=== PATIENT | female | born 1950 | race Caucasian/White ===

== ENCOUNTER 2018-08-03 09:39 | Day surgery (SDC) | payer OTHER ==
[~2018-08-03 09:39] MED LIST: CLINDAMYCIN INJ 900 MG in NA CHLORIDE 0.9% 50 ML IV ONE
--- OUTSIDE RECORDS SUMMARY | 2018-08-03 09:54 | XMS REPORT | Clinical Summary ---
:1950 Author Organization [facility] Address [address] [place] [address] Care Team Providers Name Role Phone Asked, No Pcp Primary Care Provider Unavailable Allergies Not on File Medications No known medications Active Problems No known active problems Encounters Date Type Specialty Care Team Description 06/20/2018 Office Visit Orthopedic Surgery Will Kimball, Chronic low back pain without sciatica, unspecified back pain laterality (Primary Dx); DDD (degenerative disc disease), lumbar; Neck pain after 08/02/2017 Social History Tobacco Use Types Packs/Day Years Used Date Never Assessed Sex Assigned at Date Recorded Not on file Job Start Date Occupation Industry Not on file Not on file Not on file Travel History Travel Start Travel End No recent travel history available. Last Filed Vital Signs Not on file Plan of Treatment Health Maintenance Due Date Last Done Comments BREAST CANCER SCREENING 2002 COLON CANCER SCREENING 2002 SHINGLES VACCINES (1 of 2) 2002 PNEUMOCOCCAL POLYSACCHARIDE VACCINE AGE 65 AND OVER 2017 PNEUMOCOCCAL-13 2017 INFLUENZA VACCINE 03/21/2018 Procedures Procedure Name Priority Date/Time Associated Diagnosis Comments XR CERVICAL SPINE Routine 06/20/2018 12:22 PM Chronic low back Results for this COMPLETE W FLEX EXT CDT pain without procedure are in sciatica, the results unspecified back section. pain laterality DDD (degenerative disc disease), lumbar XR LUMBAR SPINE 2 Routine 06/20/2018 11:37 AM Chronic low back Results for this OR 3 VW CDT pain without procedure are in sciatica, the results unspecified back section. pain laterality DDD (degenerative disc disease), lumbar after 08/02/2017 Results XR Cervical Spine Complete w flex/ext (06/20/2018 12:22 PM CDT) Narrative Performed At [facility] lateral cervical x-ray shows C5-6 severe degenerative changes C4-5 HM [facility] grade 1 spondylolisthesis with no evidence of gross instability.The patient has loss of cervical lordosis overall with no evidence of fractures tumors or other acute abnormalities are seen. Performing Organization Address [facility] Phone Number [facility] [address] [place] [address] XR Lumbar Spine 2 Or 3 Vw (06/20/2018 11:37 AM CDT) Narrative Performed At [facility] lateral lumbar x-ray shows L2-3 degenerative changes and loss of lumbar HM [facility] lordosis at that level with no evidence of spondylolisthesis fractures or other acute abnormality seen on imaging. Performing Organization Address [facility] Phone Number [facility] [address] [place] [address] after 08/02/2017 Insurance Payer Benefit Plan / Group Subscriber ID Type Phone Address [employer] MED[employer]ARE HU[employer] MEDICARE PPO/PFFS/ERS [facility] xxxxxxxxx PPO [phone] [id number] [address] ([place]) [place] [address] Advance Directives Patient has advance care planning documents on file. For more information, please contact:Bc Campuzano[address] [place] [address]
--- OUTSIDE RECORDS SUMMARY | 2018-08-03 09:54 | XMS REPORT | Clinical Summary ---
:1950 Author Organization [facility] Address [address] [place] [address] Care Team Providers Name Role Phone Yoel Martinez Primary Care Provider Allergies Active Allergy Reactions Severity Noted Date Comments Penicillins 12/25/2016 Questionable allergy to penicillin Medications Medication Sig Dispensed Refills Start Date End Date Status methotrexate 2.5 MG Take 7.5 mg 0 12/28/2016 Active tabletIndications: by mouth once Rheumatoid Arthritis a week . methylPREDNISolone Take 2 mg by 0 Active (MEDROL) 2 MG tablet mouth daily. metoprolol (TOPROL-XL) 50 Take 50 mg by 0 Active MG 24 hr tablet mouth 2 (two) times daily. amLODIPine (NORVASC) 10 Take 10 mg by 0 Active MG tablet mouth daily. folic acid (FOLVITE) 1 MG Take 1 mg by 0 Active tablet mouth daily. coenzyme Q10 100 mg Take 100 mg 0 Active capsule by mouth daily. vitamin E 400 UNIT Take 400 0 Active capsule Units by mouth 2 (two) times daily. naproxen Take 220 mg 0 Active (ALEVE,ANAPROX,MIDOL) 220 by mouth MG tablet daily. cholecalciferol (VITAMIN Take 400 0 Active D3) 400 unit Tab tablet Units by mouth daily. b complex vitamins tablet Take 1 tablet 0 Active by mouth daily. aspirin 325 MG tablet Take 325 mg 0 Active by mouth daily. potassium chloride SA Take 10 mEq 0 Active (K-DUR,KLOR-CON) 10 MEQ by mouth 2 tablet (two) times daily. esomeprazole (NEXIUM) 40 Take 40 mg by 0 Active MG capsule mouth daily. cyanocobalamin (VITAMIN Take 500 mcg 0 Active B-12) 500 MCG tablet by mouth nightly. ascorbic acid, vitamin C, Take 1,000 mg 0 Active (VITAMIN C) 1000 MG by mouth tablet nightly. omega-3 fatty acids-fish Take 1 g by 0 Active oil 340-1,000 mg Cap per mouth capsule nightly. magnesium oxide (MAG-OX) Take 400 mg 0 Active 400 mg tablet by mouth nightly. atorvastatin (LIPITOR) 80 Take 1 tablet 30 tablet 0 12/27/2016 12/27/2017 MG tablet (80 mg total) by mouth nightly. Active Problems Problem Noted Date TIA (transient ischemic attack) 12/25/2016 Rheumatoid arthritis(714.0) 12/25/2016 Essential hypertension 12/25/2016 Mixed hyperlipidemia 12/25/2016 History of stroke 12/25/2016 H/O foot surgery 12/25/2016 Social History Tobacco Use Types Packs/Day Years Used Date Never Assessed Sex Assigned at Date Recorded Not on file Job Start Date Occupation Industry Not on file Not on file Not on file Travel History Travel Start Travel End No recent travel history available. Last Filed Vital Signs Not on file Plan of Treatment Not on file Results Not on fileafter 08/02/2017 Insurance Payer Benefit Plan / Group Subscriber ID Type Phone Address [employer] H[employer] POS QPOS xxxxxxxxxx HMO/POS [phone] [address] [address] (Home) [place] [address] Advance Directives For more information, please contact:[address] [phone] Code Status Date Activated Date Inactivated Comments Full Code 12/25/2016 4:48 PM 12/27/2016 8:00 PM This code status was determined by: Patient
--- OUTSIDE RECORDS SUMMARY | 2018-08-03 09:55 | XMS REPORT | Continuity of Care Document ---
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, 5">Confirmed</ [facility], span>) [facility] Rheumatoid Resolved Problem 11/19/[address] [facility], [facility] XRAY Active [facility] 714.0 Active [facility] CVA Active [facility] HAND PAIN Active [facility] Medications Medication Details Route Status Patient Ordering Order Source Instructions Provider Date Vitamin C 1,000 mg, No Longer [facility] Route: PO, Active 014 Medical Drug form: Center TAB, Daily, Dosing Weight 58.001, kg, Start date: 04/03/14 9:00:00, Duration: 30 day, Stop date: 05/02/14 9:00:00 Spironolactone 25 mg, 1 Inactive [facility] tab, Route: 014 Medical PO, Drug Center form: TAB, Daily, Dosing Weight 58.001, kg, Start date: 04/03/14 9:00:00, Duration: 30 day, Stop date: 05/02/14 9:00:00Note s: (Same As: Aldactone) Co-Q10 100 mg, No Longer [facility] Route: PO, Active 014 Medical Drug form: Center CAP, Daily, Dosing Weight 58.001, kg, Start date: 04/03/14 9:00:00, Duration: 30 day, Stop date: 05/02/14 9:00:00 Vitamin B 12 500 No Longer [facility] microgram, Active 014 Medical Route: PO, Center Drug form: TAB, Daily, Dosing Weight 58.001, kg, Start date: 04/03/14 9:00:00, Duration: 30 day, Stop date: 05/02/14 9:00:00 Vitamin D 400 No Longer [facility] IntlUnit, Active [facility] Medical Route: PO, Center Drug form: TAB, Daily, Dosing Weight 58.001, kg, Start date: 04/03/14 9:00:00, Duration: 30 day, Stop date: 05/02/14 9:00:00 Folic Acid 1 mg, 1 Inactive [facility] tab, Route: 014 Medical PO, Drug Center form: TAB, Daily, Dosing Weight 58.001, kg, Start date: 04/03/14 9:00:00, Duration: 30 day, Stop date: 05/02/14 9:00:00Note s: (Same as: Folvite) Magnesium Oxide 400 mg, 1 Inactive [facility] tab, Route: [facility] Medical PO, Drug Center form: TAB, Daily, Dosing Weight 58.001, kg, Start date: 04/03/14 9:00:00, Duration: 30 day, Stop date: 05/02/14 9:00:00Note s: (Same as: Mag-Ox 400) Magnesium oxide [id number] elemental magnesium Dose=____mg magnesium oxide (___mg elemental magnesium) Aspirin 325 MG 325 mg=1 Active [facility] Enteric Coated tab, PO, [facility] Medical Tablet Daily, # Center 100 tab, 0 Refill(s) rosuvastatin 10 10 mg=1 Active [facility] mg oral tablet tab, PO, [facility] Medical Bedtime, # Center 30 tab, 3 Refill(s) Crestor 10 mg, 1 No Longer [facility] tab, Route: Active [facility] Medical PO, Drug Center form: TAB, Bedtime, Dosing Weight 58.001, kg, Start date: 04/02/14 21:00:00, Duration: 30 day, Stop date: 05/01/14 21:00:00Not es: (Same As: Crestor) Artificial Tears 1 drp, No Longer [facility] Route: Each Active [facility] Medical Affected Center Eye, TID, Drug form: SOLN, Start date: 04/02/14 17:00:00, Duration: 30 day, Stop date: 05/02/14 13:00:00 24 HR Metoprolol 50 mg, 1 No Longer [facility] Tartrate 50 MG tab, Route: Active 014 [facility] Extended Release PO, Drug Center Tablet [Toprol] form: ERTAB, BID, Start date: 04/02/14 17:00:00, Duration: 30 day, Stop date: 05/02/14 9:00:00Note s: (Same as: Toprol XL) May split tab, but do not crush. Vitamin E 400 Inactive [facility] IntlUnit, 014 Medical Route: PO, Center Drug form: CAP, BID, Dosing Weight 58.001, kg, Start date: 04/02/14 17:00:00, Duration: 30 day, Stop date: 05/02/14 9:00:00 Norvasc 2.5 mg, 1 No Longer [facility] tab, Route: Active 014 Medical PO, Drug Center form: TAB, Daily, Dosing Weight 58.001, kg, Start date: 04/02/14 15:00:00, Duration: 30 day, Stop date: 05/02/14 9:00:00Note s: (Same as: Norvasc) potassium 20 mEq, 100 Inactive [facility] chloride mL, Route: [facility] Medical IVPB, Drug Center form: INJ, Q2H, Start date: 04/02/14 10:00:00, Duration: 2 doses or times, Stop date: 04/02/14 12:00:00Not es: (Same as: KCL) Infuse no faster than 10 mEq/hr if given peripherall y. Potassium 30 mEq, Inactive [facility] Chloride Route: 014 Medical IVPB, ONCE, Center Dosing Weight 58.001, kg, Start date: 04/02/14 8:11:00, Stop date: 04/02/14 8:11:00 Potassium 10 mEq, Inactive [facility] Chloride Route: 014 Medical IVPB, ONCE, Center Dosing Weight 58.001, kg, Start date: 04/02/14 8:08:00, Stop date: 04/02/14 8:08:00 atorvastatin 40 mg, 1 No Longer [facility] tab, Route: Active 014 Medical PO, Drug Center form: TAB, Bedtime, Dosing Weight 58.001, kg, Start date: 04/01/14 21:00:00, Duration: 30 day, Stop date: 04/30/14 21:00:00Not es: (Same as: Lipitor) Saline Flush 0.9% 5 ml, No Longer [facility] Route: IVP, Active 014 Medical Drug Form: Center INJ, Dosing Weight 58.001, kg, Q12H, Start date: 04/01/14 9:00:00, Duration: 30 day, Stop date: 04/30/14 21:00:00Not es: (Same as: BD Posiflush) Aspirin 325 MG 325 mg, 1 No Longer [facility] Enteric Coated tab, Route: Active 014 Medical Tablet PO, Drug Center form: ECTAB, Daily, Dosing Weight 58.001, kg, Start date: 04/01/14 9:00:00, Duration: 30 day, Stop date: 04/30/14 9:00:00Note s: (Do Not Crush) Do not crush or chew. Docusate 100 mg, 1 No Longer [facility] cap, Route: Active 014 Medical PO, Drug Center form: CAP, Q12H, Dosing Weight 58.001, kg, Start date: 04/01/14 9:00:00, Duration: 30 day, Stop date: 04/30/14 21:00:00Not es: (Same as: Colace) (Do Not Crush) Calcium Chloride 1,000 mg, Inactive [place] 10 mL, 014 Medical Route: Center IVPB, ONCE, Dosing Weight 58.001, kg, Start date: 04/01/14 3:08:00, Stop date: 04/01/14 3:08:00 Potassium 20 mEq, 100 Inactive [facility] Chloride mL, Route: 014 [facility] IVPB, Drug Center form: INJ, ONCE, Dosing Weight 58.001, kg, Start date: 04/01/14 3:07:00, Stop date: 04/01/14 3:07:00Note s: (Same as: KCL) Infuse no faster than 10 mEq/hr if given peripherall y. potassium 10 mEq, 50 Inactive [facility] chloride mL, Route: 014 Medical IVPB, Drug Center form: INJ, ONCE, Dosing Weight 58.001, kg, Start date: 04/01/14 1:30:00, Stop date: 04/01/14 1:30:00Note s: (Same as: KCL) Infuse over 2 hours. Potassium 20 mEq, 100 Inactive [place] Chloride mL, Route: 014 Medical IVPB, Drug Center form: INJ, ONCE, Dosing Weight 58.001, kg, Start date: 04/01/14 0:38:00, Stop date: 04/01/14 0:38:00Note s: (Same as: KCL) Infuse no faster than 10 mEq/hr if given peripherall y. heparin, porcine 5,000 unit, No Longer [place] 1 mL, Active 014 Medical Route: [place] SUB-Q, Drug form: INJ, Q8H, Dosing Weight 58.001, kg, (For patients weighing Notes: porcine heparin Iohexol 85 mL, No Longer [facility] Route: IVP, Active [facility] Drug Form: [place] SOLN, Dosing Weight 58.001, kg, ONCALL, STAT, Start date: 03/31/14 23:53:00, Duration: 1 doses or times, Dose=2.2ml/ kg, Max [id number] -- "To be infused by Radiology Staff ONLY"Specia l Instruction s: Dose=2.2ml/ kg, Max [id number] -- "To be infused by Radiology Staff ONLY" Potassium 10 mEq, 100 No Longer [place] Chloride mL, Route: Active [facility] IVPB, Drug Center form: INJ, ONCE, Dosing Weight 58.001, kg, Start date: 03/31/14 23:07:00, Stop date: 03/31/14 23:07:00Not es: Infuse at a rate of 10 mEq/hr. (Same as: KCL) Saline Flush 0.9% 5 ml, No Longer [facility] Route: IVP, Active 014 Medical Drug Form: [place] INJ, Dosing Weight 58.001, kg, PRN, PRN Line Flush, Start date: 03/31/14 21:07:00, Duration: 30 day, Stop date: 04/30/14 21:06:00Not es: (Same as: BD Posiflush) Acetaminophen 650 mg, 2 No Longer [facility] tab, Route: Active 014 Medical PO, Drug Center form: TAB, Q4H, Dosing Weight 58.001, kg, PRN Pain 1-3/Temp > 99.5 F, Start date: 03/31/14 21:07:00, Duration: 30 day, Stop date: 04/30/14 21:06:00Not es: Do not exceed 4 gm/day. (Same as: Tylenol) Bisacodyl 10 mg, 1 No Longer [facility] supp, Active 014 Medical Route: [place], Center Drug form: SUPP, Daily, Dosing Weight 58.001, kg, PRN Constipatio n, Start date: 03/31/14 21:07:00, Duration: 30 day, Stop date: 04/30/14 21:06:00Not es: (Same As: Dulcolax, Bisco-Lax) Ondansetron 4 mg, 2 mL, No Longer [facility] Route: IVP, Active 014 Medical Drug form: Center INJ, Q8H, Dosing Weight 58.001, kg, PRN Nausea & Vomiting, Start date: 03/31/14 21:07:00, Duration: 30 day, Stop date: 04/30/14 21:06:00Not es: (Same as: Zofran) Labetalol 10 mg, 2 No Longer [facility] mL, Route: Active 014 Medical IVP, Drug Center form: INJ, Q10Min, Dosing Weight 58.001, kg, PRN Hypertensio n, Start date: 03/31/14 21:07:00, Duration: 30 day, Stop date: 04/30/14 21:06:00, For SBP > 180mmHg and/or DBP > 105mmHg Biotin 5000 mcg, Active [facility] PO, Daily, 014 Medical 0 Refill(s) Center Vitamin D 400 Active [facility] IntlUnit, 014 Medical PO, Daily, Center 0 Refill(s) celecoxib 200 MG 200 mg=1 Active [facility] Oral Capsule cap, PO, 014 Medical [Celebrex] Daily, # 30 Center cap, 0 Refill(s) vitamin E 400 400 Active [facility] intl units oral IntlUnit=1 014 Medical capsule cap, PO, Center BID, # 100 cap, 0 Refill(s) Co-Q10 100 mg 100 mg=1 Active [facility] oral capsule cap, PO, 014 Medical Daily, # 30 Center cap, 0 Refill(s) Folic Acid 1 MG 1 mg=1 tab, Active [facility] Oral Tablet PO, Daily, 014 Medical # 30 tab, 0 Center Refill(s) Amlodipine 2.5 MG 2.5 mg=1 Active [facility] Oral Tablet tab, PO, 014 Medical [Norvasc] Daily, # 30 Center tab, 0 Refill(s) metoprolol 50 mg 50 mg, PO, Active [facility] oral tablet, BID, # 30 014 Medical extended release tab, 0 Center Refill(s) Vitamin C 1000 mg 1,000 mg=1 Active [facility] oral tablet tab, PO, 014 Medical Daily, # 30 Center tab, 0 Refill(s) 24 HR tramadol 100 mg=1 Active [facility] hydrochloride 100 tab, PO, 014 Medical MG Extended Daily, # 30 Center Release Tablet tab, 0 Refill(s) Rosuvastatin 5 mg=1 tab, No Longer [facility] calcium 5 MG Oral PO, Active 014 Medical Tablet [Crestor] Bedtime, # Center 30 tab, 0 Refill(s) Estrogens, 0.45 mg=1 Active [facility] Conjugated (JAIL) tab, PO, 014 Medical 0.45 MG Oral Daily, # 30 Center Tablet [Premarin] tab, 0 Refill(s) magnesium oxide 500 mg=1 Active [facility] 500 mg oral tab, PO, 014 Medical tablet Daily, # 10 Center tab, 0 Refill(s) Non-Formulary Refill(s) 0 No Longer [facility] Home Medication Active [address] [place] [address] spironolactone 25 25 mg=1 Active [facility] mg oral tablet tab, PO, 014 Medical Daily, 0 Center Refill(s) Vitamin B-12 500 500 Active [facility] mcg oral tablet microgram=1 014 Medical tab, PO, Center Daily, # 30 tab, 0 Refill(s) Allergies, Adverse Reactions, Alerts Substance Category Reaction Severity Reaction Status Date Comments Source type Reported penicillins< Assertion Drug Active Data sup>1</sup> allergy 3 migrated [place] from [facility] on 03/19/15. Originally documented as PCN. sulfa drugs [facility] Active [facility] allergy [place] penicillins [facility] Active [facility] allergy Immunizations Immunization Date Given Site Status Last Updated Comments Source Results Order Name Results Value Reference Date Interpretation Comments Source Range Hand 2 Hand 2 views BILATERAL HANDS, 2 VIEWS 11/16 - [facility] views Bilateral DX /2016 - [place] Bilateral DX HISTORY: ; M06.041 Rheumatoid arthritis without rheumatoid factor, right hand, M06.042 Rheumatoid arthritis without rheumatoid factor, left hand , M79.641 Pain in right hand, M79.642 Pain in left hand; Read by: Sy Shannon MD Dictated Date/time: 11/16/16 11:20 Electronically Signed by: Sy Shannon MD 11/16/16 11:21 FINAL REPORT COMPARISON: None available. LEFT HAND: No periarticular osteopenia, joint space narrowing, osseous erosions, or soft tissue swelling. No arthritic changes are identified. No subluxation. Osseous and soft tissue structures are normal. RIGHT HAND: No periarticular osteopenia, joint space narrowing, osseous erosions, or soft tissue swelling. No arthritic changes are identified. No subluxation. Osseous and soft tissue structures are normal. SL: [id number] CHEM PANEL eGFR 80 04/03 1Result Comment: The eGFR is calculated using the CKD-EPI formula. In most young, healthy individuals the eGFR will be >90 mL/ min/1.73m2. The eGFR declines with age. An eGFR of 60-89 may be normal in [place] mL/min/1.7 /2014 some populations, particularly the elderly, for whom the CKD-EPI formula has not been extensively validated. Use of the eGFR is not recommended in the following populations: Medical 2 Center Individuals with unstable creatinine concentrations, including patients and those with serious co-morbid conditions. Patients with extremes in muscle mass or diet. The data above are obtained from the National Kidney Disease Education Program (NKDEP) which additionally recommends that when the eGFR is used in patients with extremes of body mass index for purposes of drug dosing, the eGFR should be multiplied by the estimated BMI. CHEM PANEL BUN 14 mg/dL 7 - 22 04/03 [facility] Center CHEM PANEL Creatinine 0.8 mg/dL 0.5 - 1.4 04/03 [facility] Center CHEM PANEL Glucose Lvl 100 mg/dL 70 - 99 04/03 4Interpretive Data: Adult reference range values reflect the clinical guidelines of the [place] [employer]. Medical Center CHEM PANEL CO2 32 meq/L 24 - 32 04/03 [facility] Center CHEM PANEL AGAP 12.4 meq/L 10.0 - 04/03 . [facility] Center CHEM PANEL Calcium Lvl 9.3 mg/dL 8.5 - 10.5 04/03 [facility] CHEM PANEL Sodium Lvl 140 meq/L 135 - 145 04/03 [facility] CHEM PANEL Potassium 3.4 meq/L 3.5 - 5.1 04/03 [facility] Center CHEM PANEL Chloride Lvl 99 meq/L 95 - 109 04/03 [facility] CHEM PANEL Phosphorus 3.4 mg/dL 2.5 - 4.5 04/03 [facility] CHEM PANEL Magnesium 2.1 mg/dL 1.8 - 2.4 04/03 [facility] HEMATOLOGY MPV 12.4 fL 7.4 - 10.4 04/03 [facility] HEMATOLOGY Platelet 193 K/CMM 133 - 450 04/03 [facility] HEMATOLOGY RDW 14.3 % 11.5 - 04/03 14. Medical [place] HEMATOLOGY MCHC 33.6 g/dL 32.0 - 04/03 36.0 [facility] HEMATOLOGY MCH 31.6 pg 27.0 - 04/03 31.0 [facility] Center HEMATOLOGY MCV 93.9 fL 81.0 - 04/03 99.0 [facility] HEMATOLOGY Hct 38.7 % 36.0 - 04/03 48.0 [facility] HEMATOLOGY Hgb 13.0 g/dL 12.0 - 04/03 16.0 [facility] HEMATOLOGY RBC 4.12 M/CMM 4.20 - 04/03 5.40 [facility] HEMATOLOGY WBC 11.9 K/CMM 3.7 - 10.4 04/03 [facility] HEMATOLOGY Smudge Slight None Seen 04/03 [facility] (04/03/14 1:35 AM) [place] HEMATOLOGY Anisocyte 1+ None Seen 04/03 [facility] (04/03/14 1:35 AM) HEMATOLOGY Toxic Gran Slight None Seen 04/03 [facility] [place] (04/03/14 1:35 AM) HEMATOLOGY Large Plt Moderate None Seen 04/03 [facility] [place] (04/03/14 1:35 AM) HEMATOLOGY Giant Plt Slight None Seen 04/03 [facility] (04/03/14 1:35 AM) HEMATOLOGY Lymphocytes 4.6 K/CMM 1.0 - 5.5 04/03 [facility] HEMATOLOGY Monocytes # 1.3 K/CMM 0.0 - 0.8 04/03 [facility] HEMATOLOGY Segs-Bands # 5.1 K/CMM 1.5 - 8.1 04/03 [facility] HEMATOLOGY NRBC 1 /100WB 04/03 [facility] HEMATOLOGY Atypical 0.0 % <=0.0 % 04/03 [facility] Lymph [facility] HEMATOLOGY RBC Morph Normal 04/03 [facility] (04/03/14 1:35 AM) [place] HEMATOLOGY Bands 1.0 % 0.0 - 11.0 04/03 [facility] HEMATOLOGY Eosinophils 0.4 K/CMM 0.0 - 0.5 04/03 [facility] HEMATOLOGY Monocytes 11.0 % 2.0 - 12.0 04/03 [facility] HEMATOLOGY Eosinophils 3.0 % 0.0 - 4.0 04/03 [facility] HEMATOLOGY Myelocytes 2.0 % <=0.0 % 04/03 [facility] HEMATOLOGY Metamyelocyt 2.0 % 0.0 - 1.0 04/03 [facility] HEMATOLOGY Lymphocytes 39.0 % 20.0 - 04/03 [facility] 40.0 [facility] HEMATOLOGY Segs 42.0 % 45.0 - 04/03 [facility] 75.0 [facility] CHEM PANEL Magnesium 1.8 mg/dL 1.8 - 2.4 04/02 [facility] CHEM PANEL Phosphorus 4.1 mg/dL 2.5 - 4.5 04/02 [facility] ELECTROLYT AGAP 12.1 meq/L 10.0 - 04/02 [facility] 20. [facility] ELECTROLYT eGFR 99 04/02 2Result Comment: The eGFR is calculated using the CKD-EPI formula. In most young, healthy individuals the eGFR will be >90 mL/ min/1.73m2. The eGFR declines with age. An eGFR of 60-89 may be normal in [facility] mL/min/1.7 some populations, particularly the elderly, for whom the CKD-EPI formula has not been extensively validated. Use of the eGFR is not recommended in the following populations: [address] Individuals with unstable creatinine concentrations, including patients and those with serious co-morbid conditions. Patients with extremes in muscle mass or diet. The data above are obtained from the National Kidney Disease Education Program (NKDEP) which additionally recommends that when the eGFR is used in patients with extremes of body mass index for purposes of drug dosing, the eGFR should be multiplied by the estimated BMI. ELECTROLYT BUN 18 mg/dL 7 - 22 04/02 [facility] ELECTROLYT Creatinine 0.6 mg/dL 0.5 - 1.4 04/02 [facility] ELECTROLYT Glucose Lvl 98 mg/dL 70 - 99 04/02 5Interpretive Data: Adult reference range values reflect the clinical guidelines of the [place] [employer]. [facility] ELECTROLYT Sodium Lvl 139 meq/L 135 - 145 04/02 [facility] ELECTROLYT Calcium Lvl 8.6 mg/dL 8.5 - 10.5 04/02 [facility] ELECTROLYT CO2 33 meq/L 24 - 32 04/02 [facility] ELECTROLYT Chloride Lvl 97 meq/L 95 - 109 04/02 [facility] ELECTROLYT Potassium 3.1 meq/L 3.5 - 5.1 04/02 [facility] HEMATOLOGY Eosinophils 4.0 % 0.0 - 4.0 04/02 [facility] HEMATOLOGY Lymphocytes 38.0 % 20.0 - 04/02 [place] 40.0 [facility] HEMATOLOGY Monocytes 21.0 % 2.0 - 12.0 04/02 [facility] HEMATOLOGY Bands 2.0 % 0.0 - 11.0 04/02 [facility] HEMATOLOGY Segs 33.0 % 45.0 - 04/02 [facility] 75.0 [facility] HEMATOLOGY Large Plt Moderate None Seen 04/02 Medical *[facility] Center (04/02/14 2:11 AM) HEMATOLOGY Metamyelocyt 2.0 % 0.0 - 1.0 04/02 [facility] es [facility] HEMATOLOGY Atypical 0.0 % <=0.0 % 04/02 [facility] Lymphs [facility] HEMATOLOGY Segs-Bands # 3.7 K/CMM 1.5 - 8.1 04/02 [facility] HEMATOLOGY Lymphocytes 4.0 K/CMM 1.0 - 5.5 04/02 [facility] HEMATOLOGY Eosinophils 0.4 K/CMM 0.0 - 0.5 04/02 [facility] HEMATOLOGY Monocytes # 2.2 K/CMM 0.0 - 0.8 04/02 [facility] HEMATOLOGY MCH 32.2 pg 27.0 - 04/02 31.0 [facility] HEMATOLOGY MCHC 34.3 g/dL 32.0 - 04/02 36.0 [facility] HEMATOLOGY MCV 93.9 fL 81.0 - 04/02 [facility] 99.0 [facility] HEMATOLOGY Hct 38.3 % 36.0 - 04/02 48.0 [facility] HEMATOLOGY RDW 14.2 % 11.5 - 04/02 14.5 [facility] HEMATOLOGY Hgb 13.1 g/dL 12.0 - 04/02 16.0 [facility] HEMATOLOGY RBC 4.08 M/CMM 4.20 - 04/02 5.40 [facility] HEMATOLOGY WBC 10.6 K/CMM 3.7 - 10.4 04/02 [facility] HEMATOLOGY MPV 12.3 fL 7.4 - 10.4 04/02 [facility] HEMATOLOGY Platelet 171 K/CMM 133 - 450 04/02 [facility] HEMATOLOGY Sed Rate 38 mm/h 0 - 20 04/02 [facility] LIPIDS CHD Risk 5.59 3.90 - 04/02 [facility] 5.80 [facility] LIPIDS VLDL 57 04/02 [facility] LIPIDS LDL 76 mg/dL <=99 mg/dL 04/02 [facility] (Calculated) [facility] LIPIDS Chol 162 mg/dL <=199 04/02 [facility] mg/dL [facility] LIPIDS HDL 29 mg/dL >=61 mg/dL 04/02 [facility] LIPIDS Trig 284 mg/dL <=149 04/02 [facility] mg/dL [facility] CARDIAC Troponin-I null 0.00 - 04/01 [facility] ENZYMES 0.40 [facility] CARDIAC Total CK 61 unit/L 12 - 191 04/01 [facility] ENZYMES [facility] CHEM PANEL eGFR 99 04/01 3Result Comment: The eGFR is calculated using the CKD-EPI formula. In most young, healthy individuals the eGFR will be >90 mL/ min/1.73m2. The eGFR declines with age. An eGFR of 60-89 may be normal in [facility] mL/min/1.7 some populations, particularly the elderly, for whom the CKD-EPI formula has not been extensively validated. Use of the eGFR is not recommended in the following populations: [place] [address] Center Individuals with unstable creatinine concentrations, including patients and those with serious co-morbid conditions. Patients with extremes in muscle mass or diet. The data above are obtained from the National Kidney Disease Education Program (NKDEP) which additionally recommends that when the eGFR is used in patients with extremes of body mass index for purposes of drug dosing, the eGFR should be multiplied by the estimated BMI. CHEM PANEL Glucose Lvl 80 mg/dL 70 - 99 04/01 6Interpretive Data: Adult reference range values reflect the clinical guidelines of the [place] [employer]. [facility] CHEM PANEL Sodium Lvl 139 meq/L 135 - 145 04/01 [facility] CHEM PANEL Creatinine 0.6 mg/dL 0.5 - 1.4 04/01 [facility] Lvl [facility] CHEM PANEL AGAP 11.7 meq/L 10.0 - 04/01 [facility] 20.0 [facility] CHEM PANEL Calcium Lvl 9.6 mg/dL 8.5 - 10.5 04/01 [facility] CHEM PANEL Potassium 3.7 meq/L 3.5 - 5.1 04/01 [facility] Lvl [facility] CHEM PANEL CO2 33 meq/L 24 - 32 04/01 [facility] CHEM PANEL Chloride Lvl 98 meq/L 95 - 109 04/01 [facility] CHEM PANEL BUN 17 mg/dL 7 - 22 04/01 [facility] URINE AND UA <=1.0 0.1 - 1.0 04/01 [facility] Urobilinogen mg/dL [facility] URINE AND UA [place] Yeast Few /HPF None Seen 04/01 [facility] /HPF [facility] URINE AND UA RBC 8 /HPF 0 - 2 04/01 [facility] URINE AND UA Mucus Few /LPF None Seen 04/01 [facility] /LPF [facility] URINE AND UA Sq Epi Few /LPF Few /LPF 04/01 [facility] URINE AND UA WBC 8 /HPF 0 - 5 04/01 [facility] URINE AND UA Color Yellow Yellow 04/01 [facility] *NA* [place] (04/01/14 5:40 AM) URINE AND UA Ketones 10 mg/dL Negative 04/01 [facility] mg/dL [facility] URINE AND UA Blood Negative Negative 04/01 [facility] (04/01/14 5:40 AM) [place] URINE AND UA Nitrite Negative Negative 04/01 [facility] (04/01/14 5:40 AM) [place] URINE AND UA Leuk Est Negative Negative 04/01 [facility] (04/01/14 5:40 AM) [place] URINE AND UA Bili Negative Negative 04/01 [facility] Medical *NA* [place] (04/01/14 5:40 AM) URINE AND UA Glucose Negative Negative 04/01 [facility] mg/dL mg/dL [facility] URINE AND UA pH 5.5 5.0 - 8.0 04/01 [facility] URINE AND UA Protein Negative Negative 04/01 [facility] mg/dL mg/dL [facility] URINE AND UA Turbidity Clear Clear 04/01 [facility] (04/01/14 5:40 AM) [place] URINE AND UA Spec Grav 1.047 <=1.030 04/01 [facility] SPECIAL Hgb A1C 5.8 % <=5.6 % 04/01 [facility] CHEMISTRY [facility] HEMATOLOGY Platelet 165 K/CMM 133 - 450 04/01 [facility] HEMATOLOGY MPV 12.8 fL 7.4 - 10.4 04/01 [facility] HEMATOLOGY RDW 15.5 % 11.5 - 04/01 14.5 [facility] HEMATOLOGY MCHC 34.0 g/dL 32.0 - 04/01 [facility] 36.0 [facility] HEMATOLOGY MCH 31.8 pg 27.0 - 04/01 [facility] 31.0 [facility] HEMATOLOGY RBC 4.07 M/CMM 4.20 - 04/01 [facility] 5.40 [facility] HEMATOLOGY Hgb 13.0 g/dL 12.0 - 04/01 [facility] 16.0 [facility] HEMATOLOGY Hct 38.1 % 36.0 - 04/01 [facility] 48.0 [facility] HEMATOLOGY MCV 93.6 fL 81.0 - 04/01 [facility] 99.0 [facility] HEMATOLOGY WBC 7.4 K/CMM 3.7 - 10.4 04/01 [facility] HEMATOLOGY Large Plt Moderate None Seen 04/01 [facility] *ABN* [place] (03/31/14 8:00 PM) HEMATOLOGY Giant Plt Slight None Seen 04/01 [facility] *ABN* [place] (03/31/14 8:00 PM) HEMATOLOGY Smudge Slight None Seen 04/01 [facility] (03/31/14 8:00 PM) [place] HEMATOLOGY Toxic Gran Slight None Seen 04/01 [facility] *ABN* [place] (03/31/14 8:00 PM) HEMATOLOGY Basophils # 0.1 K/CMM 0.0 - 0.2 04/01 [facility] HEMATOLOGY Eosinophils 0.2 K/CMM 0.0 - 0.5 04/01 [facility] HEMATOLOGY Lymphocytes 3.0 K/CMM 1.0 - 5.5 04/01 [facility] HEMATOLOGY Monocytes # 1.1 K/CMM 0.0 - 0.8 04/01 [facility] HEMATOLOGY RBC Morph Normal 04/01 [facility] (03/31/14 8:00 PM) [place] HEMATOLOGY Basophils 0.7 % 0.0 - 1.0 04/01 [facility] HEMATOLOGY Segs-Bands # 3.0 K/CMM 1.5 - 8.1 04/01 [facility] HEMATOLOGY Eosinophils 3.0 % 0.0 - 4.0 04/01 [facility] HEMATOLOGY Segs 40.4 % 45.0 - 08 [place] 75.0 /2013 [facility] HEMATOLOGY Monocytes 15.2 % 2.0 - 12.0 04/01 [facility] HEMATOLOGY Lymphocytes 40.7 % 20.0 - 08 [place] 40.0 [facility] CARDIAC Troponin-I null 0.00 - 08 [facility] ENZYMES 0.40 [facility] CARDIAC Total CK 90 unit/L 12 - 191 04/01 [facility] CARDIAC CK MB Index 2.2 0.0 - 2.5 04/01 [facility] ENZYMES [facility] CARDIAC CK MB 2.0 ng/mL 0.5 - 3.6 04/01 [facility] CHEM PANEL B/C Ratio 24 6 - 25 04/01 [facility] CHEM PANEL Albumin Lvl 2.4 g/dL 3.5 - 5.0 04/01 [facility] CHEM PANEL Total 5.3 g/dL 6.4 - 8.4 04/01 [facility] CHEM PANEL Globulin 2.9 g/dL 2.0 - 4.0 04/01 [facility] CHEM PANEL ALT 57 unit/L 0 - 65 04/01 [facility] CHEM PANEL A/G Ratio 0.8 0.7 - 1.6 04/01 [facility] CHEM PANEL Alk Phos 59 unit/L 39 - 136 04/01 [facility] CHEM PANEL AST 58 unit/L 0 - 37 04/01 [facility] CHEM PANEL Bili Total 0.6 mg/dL 0.2 - 1.3 04/01 [facility] LIPIDS LDL 77 mg/dL <=99 mg/dL 04/01 [facility] (Calculated) [facility] LIPIDS VLDL 53 04/01 [facility] LIPIDS CHD Risk 6.20 3.90 - 04/01 [place] [facility] LIPIDS HDL 25 mg/dL >=61 mg/dL 04/01 [facility] LIPIDS Chol 155 mg/dL <=199 04/01 [facility] mg/dL [facility] LIPIDS Trig 264 mg/dL <=149 04/01 [facility] mg/dL [facility] Brain/Neck Brain/Neck EXAM: CTA NECK 04/01 - [facility] CTA CTA - Medical EXAM: CTA BRAIN Center Read by: Christin Puente MD Dictated Date/time: 04/01/14 08:35 Electronically Signed by: Christin Puente MD 04/01/14 08:46 FINAL REPORT INDICATION: Aphasia COMPARISON: MRI March 31, 2014 TECHNIQUE Rapid acquisition spiral images were obtained following the intravenous administration of 85 cc Omnipaque. 3D MIP reconstructions were performed. DISCUSSION: CTA BRAIN: Moderate stenosis at the left M1 segment. Atherosclerosis of the cavernous segments of the internal carotid arteries without flow limitation. No proximal occlusion. Bilateral posterior communicating arteries are patent. 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 Major dural venous sinuses are patent. Left transverse sinus is hypoplastic. CTA NECK: The common carotid arteries are normal in size. The carotid bifurcations show no stenosis. There is some motion degradation in the neck. Vertebral arteries show no stenosis. Patchy opacities in the left lung base may be infectious or inflammatory in origin. IMPRESSION: 1. Focal moderate stenosis of the left M1 segment. No proximal occlusion is identified intracranially. 2. 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 3. No stenosis at the carotid bifurcations. Vertebral arteries are unremarkable. 4. Patchy opacities in the left lower lung. Further evaluation with dedicated CT chest is recommended. All quantitative and qualitative assessments of carotid bifurcation and proximal internal carotid artery stenosis are made at referencing the distal internal carotid artery. Brain wo Brain wo EXAM: MRI BRAIN WITHOUT CONTRAST 03/31 [facility] contrast contrast MRI /2013 - [facility] DATE: 03/31/2014 Read by: Caden Rey MD Dictated Date/time: 04/01/14 08:33 Electronically Signed by: Caden Rey MD 04/01/14 08:39 FINAL REPORT CLINICAL INDICATION: Aphasia TECHNIQUE: Multisequence multiplanar noncontrast MRI of the brain is performed. DISCUSSION: There is diffusion restriction in the left ventromedial thalamus extending inferiorly into the left subthalamic region and into the mesial aspect of the rostral mesencephalon. There is no acute intracra nial hemorrhage. FLAIR imaging shows scattered T2 hyperintensities in the white matter, reflecting chronic microangiopathic changes. The ventricles and basal cisterns are normal. The flow-voids of the l arger arteries at the cranial base are preserved. IMPRESSION: Acute infarct in the left ventromedial thalamus extending into the ipsilateral subthalamic region and rostral mesencephalon. No hemorrhage Spine Spine Cervical spine series 3 views: 01/27 - cervical 2 cervical - or 3 views or 3 views COMPARISON: No priors Read by: Larry Bertrand MD Dictated Date/time: 01/27/14 16:21 Electronically Signed by: Larry Bertrand MD 01/27/14 16:23 FINAL REPORT FINDINGS: There is no evidence for fracture or subluxation. The vertebral body heights are reasonably well-maintained. There is moderate anterior and posterior spondylosis and disc disease at C5 -C6 level. Moderate decrease in disc space height is present. Alignment remains anatomic. Prevertebral soft tissues are within normal limits. IMPRESSION: Spondylosis and degenerative disc disease is present primarily at C5-C6 level. SL:13 Chest 2 Chest 2 CHEST, PA AND LATERAL. 12/25 - views - INDICATION: Chest pain. Read by: Mukund Torres MD Dictated Date/time: 12/25/13 17:31 Electronically Signed by: Mukund Torres 12/25/13 17:32 FINAL REPORT Cardiac size is normal. The thoracic aorta is ectatic and atherosclerotic. There is minor linear scarring at both lung bases. The lungs are otherwise clear, and no vascular congestion or pleural effusion is seen. Minor thoracic spondylosis is noted. IMPRESSION: No significant abnormality. SL: 12 Vital Signs Vital Sign Value Date Comments Source Systolic (mm Hg) 115 04/03/2014 [facility] Diastolic (mm Hg) 65 04/03/2014 [facility] Respitory Rate 13 04/03/2014 [facility] Respitory Rate 24 04/03/2014 [facility] Respitory Rate 17 04/03/2014 [facility] Diastolic (mm Hg) 80 04/03/2014 [facility] Systolic (mm Hg) 119 04/03/2014 [facility] Diastolic (mm Hg) 87 04/03/2014 [facility] Systolic (mm Hg) 117 04/03/2014 [facility] Temperature Oral (F) 96.9 F 04/03/2014 [facility] Height 157.48 cm 03/31/2014 [facility] Weight 58.001 03/31/2014 [facility] BMI Calculated 23.39 03/31/2014 [facility] Encounters Location Location Encounter Encounter Reason Attending ADM DC Status Source Details Type Number For Provider Date Date Visit [facility] [id number] Jyothi 12/25 12/26 Brendan Chopra /2013 [facility] Outpatient [id number] Joythi 01/27 01/28 Brendan Chopra /2013 [facility] Inpatient [id number] Anjail 03/31 04/03 Sachin Joy /2013 [facility] [id number] Non 05/01 05/31 [facility] /2013 [facility] Outpatient [id number] Jyothi 11/16 11/17 Brendan Chopra /2016 [facility] Procedures Procedure Code Date Perfomer Comments Source Foot joint [id number] [facility] Hysterectomy [id number] [facility] Foot joint [id number] [facility] Hysterectomy [id number] [facility]
--- OUTSIDE RECORDS SUMMARY | 2018-08-03 09:56 | XMS REPORT ---
:1950 Author Organization [facility] Address [address] [place] [address] Dr. Smith [address] [place] [id number] Care Team Providers Name Role Phone ANGÉLICA HARRELL Unavailable Unavailable Problems This patient has no known problems. Allergies, Adverse Reactions, Alerts This patient has no known allergies or adverse reactions. Medications This patient has no known medications. Results Test Description Test Time Test Comments Text Results Atomic Results Result Comments BASIC METABOLIC PANEL 2016-12-27 05:14:00 Test Item Value Reference Range Comments SODIUM (BEAKER) (test 141 meq/L 136-145 megt=606) POTASSIUM (BEAKER) (test 4.2 meq/L 3.5-5.1 fptk=609) CHLORIDE (BEAKER) (test 109 meq/L 98-107 chsm=924) CO2 (BEAKER) (test bwda=942) 26 meq/L 22-29 BLOOD UREA NITROGEN (BEAKER) 14 mg/dL 7-21 (test hlwj=415) CREATININE (BEAKER) (test 0.80 mg/dL 0.57-1.25 uxcs=078) GLUCOSE RANDOM (BEAKER) 108 mg/dL 70-105 (test rosd=650) CALCIUM (BEAKER) (test 9.0 mg/dL 8.4-10.2 czxw=193) EGFR (BEAKER) (test 72 mL/min/1.73 sq m ESTIMATED GFR IS NOT zwpw=3439) ACCURATE CREATININE CLEARANCE IN PREDICTING GLOMERULAR FILTRATION RATE. ESTIMATED GFR IS NOT APPLICABLE FOR DIALYSIS PATIENTS. [id number] 12:05:00 Test Item Value Reference Range Comments RPR SCREEN (BEAKER) (test smrp=528) Nonreactive Nonreactive HEMOGLOBIN [id number] 11:10:00 Test Item Value Reference Range Comments HEMOGLOBIN A1C (BEAKER) (test hjvf=347) 5.1 % 4.3-6.1 CREATINE KINASE (CK), TOTAL AND [id number] 10:42:00 Test Item Value Reference Range Comments CREATINE KINASE TOTAL (BEAKER) (test hrwr=383) 38 U/L 29-200 CREATINE KINASE-MB (BEAKER) (test tfdb=424) 0.8 ng/mL 0.0-6.6 CREATINE KINASE-MB INDEX (BEAKER) (test qpxa=230) 2.1 % Effective 2014: CK-MB Reference Range ChangeNew: 0.0-6.6 Previous: 0.0- 4.9CK-MB Reference Range:<6.7 Normal6.7-10.0 Borderline>10.0 AbnormalTROPONIN [id number] 10:42:00 Test Item Value Reference Range Comments TROPONIN I (BEAKER) (test bdei=981) 0.01 ng/mL 0.00-0.03 Effective 2014: Reference Range ChangeNew: 0.00-0.03 Previous 0.00- 0.15Troponin I (TnI) levels must be interpreted in the context of the presenting symptoms and the clinical findings. Elevated TnI levels indicate myocardial damage, but are not specific for ischemic heart disease. Elevated TnI levels are seen in patients with other cardiac conditions (including myocarditis and congestive heartfailure), and slight TnI elevations occur in patients with other conditions, including sepsis, renalfailure, acidosis, acute neurological disease, and persistent tachyarrhythmia.VITAMIN B12 AND [id number] 07:06:00 Test Item Value Reference Range Comments VITAMIN B12 (BEAKER) (test jqon=943) > pg/mL 213-816 FOLATE (BEAKER) (test zhvn=914) 15.6 ng/mL >=7.0 Effective 2014: Folate Reference Range ChangeNew: >=7.0 Previous: & gt;=5.4FastingTSH/FREE T4 IF [id number] 07:03:00 Test Item Value Reference Range Comments THYROID STIMULATING HORMONE (BEAKER) (test 2.28 uIU/mL 0.35-4.94 cdla=378) [id number] 05:47:00 Test Item Value Reference Range Comments HOMOCYSTEINE (BEAKER) (test ujac=696) 5.4 umol/L 5.1-15.4 FastingBASIC METABOLIC [id number] 05:43:00 Test Item Value Reference Range Comments SODIUM (BEAKER) (test 142 meq/L 136-145 hmnv=371) POTASSIUM (BEAKER) (test 4.0 meq/L 3.5-5.1 hbku=275) CHLORIDE (BEAKER) (test 111 meq/L 98-107 aqsy=770) CO2 (BEAKER) (test 22 meq/L 22-29 zkhd=186) BLOOD UREA NITROGEN 13 mg/dL 7-21 (BEAKER) (test bdad=219) CREATININE (BEAKER) (test 0.75 mg/dL 0.57-1.25 tqmm=967) GLUCOSE RANDOM (BEAKER) 83 mg/dL 70-105 (test awal=923) CALCIUM (BEAKER) (test 8.7 mg/dL 8.4-10.2 aecg=059) EGFR (BEAKER) (test 78 mL/min/1.73 sq m ESTIMATED GFR IS NOT gghw=5193) ACCURATE CREATININE CLEARANCE IN PREDICTING GLOMERULAR FILTRATION RATE. ESTIMATED GFR IS NOT APPLICABLE FOR DIALYSIS PATIENTS. FastingLIPID [id number] 05:43:00 Test Item Value Reference Range Comments TRIGLYCERIDES (BEAKER) (test jpru=242) 509 mg/dL CHOLESTEROL (BEAKER) (test agqh=908) 333 mg/dL HDL CHOLESTEROL (BEAKER) (test pmvn=709) 41 mg/dL Calculated LDL not valid if triglyceride >400 mg/dLTriglyceride Reference Range: Low Risk <150 Borderline 150-199 High Risk 200-499 Very High Risk >=500Cholesterol Reference Range: Low Risk <200 Borderline 200-239 High Risk >240HDL Cholesterol Reference Range: Low Risk >=60 High Risk <40LDL Cholesterol ReferenceRange: Optimal <100 Near Optimal 100-129 Borderline 130-159 High 160-189 Very High >=190 FastingCREATINE KINASE (CK), TOTAL AND [id number] 00:59:00 Test Item Value Reference Range Comments CREATINE KINASE TOTAL (BEAKER) (test ivus=119) 48 U/L 29-200 CREATINE KINASE-MB (BEAKER) (test mhmd=463) 0.9 ng/mL 0.0-6.6 CREATINE KINASE-MB INDEX (BEAKER) (test gmvh=587) 1.9 % Effective 2014: CK-MB Reference Range ChangeNew: 0.0-6.6 Previous: 0.0- 4.9CK-MB Reference Range:<6.7 Normal6.7-10.0 Borderline>10.0 AbnormalTROPONIN [id number] 00:59:00 Test Item Value Reference Range Comments TROPONIN I (BEAKER) (test qswx=908) < ng/mL 0.00-0.03 Effective 2014: Reference Range ChangeNew: 0.00-0.03 Previous 0.00- 0.15Troponin I (TnI) levels must be interpreted in the context of the presenting symptoms and the clinical findings. Elevated TnI levels indicate myocardial damage, but are not specific for ischemic heart disease. Elevated TnI levels are seen in patients with other cardiac conditions (including myocarditis and congestive heartfailure), and slight TnI elevations occur in patients with other conditions, including sepsis, renalfailure, acidosis, acute neurological disease, and persistent tachyarrhythmia.CREATINE KINASE (CK), TOTAL AND [id number] 20:28:00 Test Item Value Reference Range Comments CREATINE KINASE TOTAL (BEAKER) (test pijb=159) 52 U/L 29-200 CREATINE KINASE-MB (BEAKER) (test leyn=853) 1.2 ng/mL 0.0-6.6 CREATINE KINASE-MB INDEX (BEAKER) (test sxrc=855) 2.3 % Effective 2014: CK-MB Reference Range ChangeNew: 0.0-6.6 Previous: 0.0- 4.9CK-MB Reference Range:<6.7 Normal6.7-10.0 Borderline>10.0 AbnormalTROPONIN [id number] 20:28:00 Test Item Value Reference Range Comments TROPONIN I (BEAKER) (test dtfp=221) < ng/mL 0.00-0.03 Effective 2014: Reference Range ChangeNew: 0.00-0.03 Previous 0.00- 0.15Troponin I (TnI) levels must be interpreted in the context of the presenting symptoms and the clinical findings. Elevated TnI levels indicate myocardial damage, but are not specific for ischemic heart disease. Elevated TnI levels are seen in patients with other cardiac conditions (including myocarditis and congestive heartfailure), and slight TnI elevations occur in patients with other conditions, including sepsis, renalfailure, acidosis, acute neurological disease, and persistent tachyarrhythmia.BASIC METABOLIC [id number] 20:22:00 Test Item Value Reference Range Comments SODIUM (BEAKER) (test 143 meq/L 136-145 yltj=933) POTASSIUM (BEAKER) (test 3.1 meq/L 3.5-5.1 gjtp=001) CHLORIDE (BEAKER) (test 108 meq/L 98-107 ulkc=784) CO2 (BEAKER) (test 25 meq/L 22-29 dnbq=245) BLOOD UREA NITROGEN 15 mg/dL 7-21 (BEAKER) (test bjlt=817) CREATININE (BEAKER) (test 0.76 mg/dL 0.57-1.25 vwpg=185) GLUCOSE RANDOM (BEAKER) 161 mg/dL 70-105 (test lpii=832) CALCIUM (BEAKER) (test 8.7 mg/dL 8.4-10.2 oiqv=770) EGFR (BEAKER) (test 77 mL/min/1.73 sq m ESTIMATED GFR IS NOT zhav=1177) ACCURATE CREATININE CLEARANCE IN PREDICTING GLOMERULAR FILTRATION RATE. ESTIMATED GFR IS NOT APPLICABLE FOR DIALYSIS PATIENTS. CBC W/PLT COUNT & AUTO [id number] 20:02:00 Test Item Value Reference Range Comments WHITE BLOOD CELL COUNT (BEAKER) (test eylw=412) 7.6 K/ L 4.0-10.0 RED BLOOD CELL COUNT (BEAKER) (test ihcp=094) 4.73 M/ L 4.00-5.00 HEMOGLOBIN (BEAKER) (test vvyt=151) 15.1 GM/DL 12.0-15.0 HEMATOCRIT (BEAKER) (test mgln=174) 44.6 % 36.0-45.0 MEAN CORPUSCULAR VOLUME (BEAKER) (test nter=815) 94.2 fL 82.0-99.0 MEAN CORPUSCULAR HEMOGLOBIN (BEAKER) (test 31.9 pg 27.0-33.0 jxsb=422) MEAN CORPUSCULAR HEMOGLOBIN CONC (BEAKER) (test 33.9 GM/DL 32.0-36.0 xegx=798) RED CELL DISTRIBUTION WIDTH (BEAKER) (test 13.8 % 10.3-14.2 vifs=998) PLATELET COUNT (BEAKER) (test nvbn=449) 117 K/CU MM 150-430 MEAN PLATELET VOLUME (BEAKER) (test ovkd=007) 11.6 fL 6.5-10.5 NUCLEATED RED BLOOD CELLS (BEAKER) (test 0 /100 WBC 0-0 ptra=972) NEUTROPHILS RELATIVE PERCENT (BEAKER) (test 69 % ajcb=685) LYMPHOCYTES RELATIVE PERCENT (BEAKER) (test 20 % mojt=578) MONOCYTES RELATIVE PERCENT (BEAKER) (test 8 % usdg=916) EOSINOPHILS RELATIVE PERCENT (BEAKER) (test 2 % rcgc=530) BASOPHILS RELATIVE PERCENT (BEAKER) (test 0 % kbvf=141) NEUTROPHILS ABSOLUTE COUNT (BEAKER) (test 5.26 K/ L 1.80-8.00 uqjc=790) LYMPHOCYTES ABSOLUTE COUNT (BEAKER) (test 1.52 K/ L 1.48-4.50 eniu=160) MONOCYTES ABSOLUTE COUNT (BEAKER) (test 0.62 K/ L 0.00-1.30 indz=760) EOSINOPHILS ABSOLUTE COUNT (BEAKER) (test 0.17 K/ L 0.00-0.50 fcdx=380) BASOPHILS ABSOLUTE COUNT (BEAKER) (test 0.03 K/ L 0.00-0.20 tpej=333) 0.00
[2018-08-03] MEDS ORDERED: Ringers Lactate 1,000 ML IV ONE (10:23)
[2018-08-03] MEDS ORDERED: MIDAZOLAM HCL 2 MG/2 ML INJ ONE (11:28)
[2018-08-03] MEDS ORDERED: ONDANSETRON 4 MG/2 ML VIAL ONE (11:29)
[2018-08-03] MEDS ORDERED: LIDOCAINE 2% MPF 5 ML VIAL ONE (11:29)
[2018-08-03] MEDS ORDERED: FENTANYL CITR 250 MCG/5 ML ONE (11:29)
[2018-08-03] MEDS ORDERED: PROPOFOL 200 MG/20 ML VIAL IV ONE (11:30)
[2018-08-03] MEDS ORDERED: METHYLPREDNISOLONE 125 MG INJ ONE (11:50)
--- NOTE | 2018-08-03 13:07 | P.BOP ---
Preoperative diagnosis: right medial malleolus fx Postoperative diagnosis: same Primary procedure: right medial malleolus orif Estimated blood loss: 5ccs Anesthesia: General Complications: None Transferred to: Recovery Room Condition: Good
[2018-08-03] MEDS ORDERED: CODEINE 30MG/APAP 300MG TAB ONE (14:01)
--- NOTE | 2018-08-03 14:13 | RAD REPORT ---
EXAM DESCRIPTION: RAD - Ankle Right 2 View - 08/03/2018 2:02 pm FINDINGS: ORIF right ankle performed. Two portable C-arm views were obtained during fluoroscopic assisted placement of fracture fixation villar rdware. No suspicious or unexpected finding. Fluoro time was 0.6 minutes.
--- NOTE | 2018-08-04 00:33 | OP ---
Date of Procedure: 08/03/2018 Surgeon: Emiliano Mccarthy MD Preoperative Diagnosis: Right medial malleolus fracture. Postoperative Diagnosis: Right medial malleolus fracture. Procedure: Right medial malleolus screw fixation. Estimated Blood Loss: Less than 5 cc. Complications: There were no complications. Specimen: No pathology specimens sent. Indication For Operation: Ms. Long is a 68-year-old female, who unfortunately suffers from rheum atoid disease, who began having pain in her right ankle. When she saw me in my office, she denied an y history of trauma, however, had persistent pain in her ankle. X-rays were taken, which demonstrate d a small amount of haze in the region of the medial malleolus and the area which is very typical for medial malleolus fracture. An MRI was performed, which demonstrates a medial malleolus fracture wit h some healing, but the fracture line is still visible. All risks, benefits, and alternatives have b een discussed with the patient with regard to skeletal stabilization and nonweightbearing and attempt to get this to heal. It has been 6 weeks since the onset. However, I feel that this is the best wa y of managing this at this point. She says she understands things as presented and wishes to proceed . Description Of Procedure: The patient was taken to the operating room and placed in supine position. General anesthesia was obtained by the staff. Following this, a well-padded tourniquet was placed on the superior right thigh. Right lower extremity was then prepped and draped in usual sterile fash ion for the procedure. Following this, a guidewire was then placed using biplanar C-arm radiography, which appeared to cross the fracture site without difficulty. This was followed by second guide pin . After this, the 4-0 cannulated screws were then placed, 1 at a time providing compression. After this, the wound was irrigated and the skin was closed using interrupted nylon sutures. She was then placed in a very well-padded posterior splint with side flat, awakened, and taken to recovery room in good condition. There were no complications. /GAEL Voice ID: [id number] Report ID: [id number]
== END 2018-08-03 14:49 | disposition home or self-care (01) ==
LOC: OR 09:39
PROVIDERS: ATTEND Orthopaedic Surgery
PROC: 0QSG04Z Reposition Right Tibia with Internal Fixation Device, Open Approach (ICD-10-PCS; principal; 2018-08-03 11:00)
DX: S82.54XA Nondisplaced fracture of medial malleolus of right tibia, initial encounter for closed fracture (principal); M06.9 Rheumatoid arthritis, unspecified; I10 Essential (primary) hypertension; I69.951 Hemiplegia and hemiparesis following unspecified cerebrovascular disease affecting right dominant side; Z88.0 Allergy status to penicillin
CPT/HCPCS: 27766; 73600; J2250; J2405; J2704; J2930; J3010

== ENCOUNTER → 2021-03-02 | Day surgery (SDC) | payer OTHER ==
[2021-03-01 14:32] LABS: Absolute Lymphocytes (CBC) 3.6 K/uL (0.7-4.9); Hematocrit 42.6 % (36.0-45.0); Lymphocytes % 38.4 % (15.3-44.8); MPV 12.3 fL (7.6-11.3); RBC Red Blood Cell Count 4.82 M/uL (3.86-4.86)
[2021-03-01 14:34] LABS: Protime INR 1.05
[2021-03-01 14:48] LABS: Potassium 3.1 mmol/L (3.5-5.1)
--- NOTE | 2021-03-01 15:39 | RAD REPORT ---
EXAM DESCRIPTION: RAD - Chest Single View - 03/01/2021 3:01 pm CLINICAL HISTORY: PRE-OP, pending kidney stone removal COMPARISON: January 2020 TECHNIQUE: AP portable chest image was obtained 03/01/2021 3:01 pm . FINDINGS: Scarring or linear atelectasis seen in each lung base. Lung volumes are low. Heart and vas culature are normal. No measurable pleural effusion and no pneumothorax. No acute bony abnormality se en. No acute aortic findings suspected. IMPRESSION: No acute cardiopulmonary process. No significant change from comparison study.
--- NOTE | 2021-03-01 16:03 | EKG ---
Test Date: 2021-03-01 Test Time: 13:30:16 Waste Removalist: MAE MEASUREMENT RESULTS: Intervals: Rate: 64 NH: 158 QRSD: 82 QT: 388 QTc: 400 [place]: P: 29 NH: 158 QRS: 18 T: 60 INTERPRETIVE STATEMENTS: Normal sinus rhythm Nonspecific ST and T wave abnormality Abnormal ECG Compared to ECG 12/25/2016 13:06:14 ST (T wave) deviation now present Sinus bradycardia no longer present Electronically Signed On 03-01-21 16:02:30 CDT by Aldo Thornton
[~2021-03-02] MED LIST changes: +CLINDAMYCIN INJ 600 MG in NA CHLORIDE 0.9% 50 ML IV ONE; -CLINDAMYCIN INJ 900 MG in NA CHLORIDE 0.9% 50 ML IV ONE; +CODEINE 30MG/APAP 300MG TAB PO ONE; +CODEINE 30MG/APAP 300MG TAB PO PRN; +EPHEDRINE SULF 50 MG/ML VIAL ONE; +FENTANYL CITR 100 MCG/2 ML ONE; +GENTAMICIN 80 MG/100 ML BAG 80 MG/100 ML BAG IV ONE; +GLYCOPYRROLATE 0.2 MG/ML SYR ONE; +KETOROLAC 30 MG/ML INJ ONE; +LIDOCAINE 2% MPF 5 ML VIAL ONE; +MIDAZOLAM HCL 2 MG/2 ML INJ ONE; +ONDANSETRON 4 MG/2 ML VIAL ONE; +PHENAZOPYRIDINE 100MG TAB PO ONE; +POTASSIUM CL SA 10 MEQ TAB PO ONE; +Ringers Lactate 1,000 ML IV ONE; +dexAMETHasone 10 MG/ML VIAL ONE; +propofoL 200 MG/20 ML VIAL IV ONE
--- NOTE | 2021-03-02 14:31 | RAD REPORT ---
EXAM DESCRIPTION: RAD - Urethrocystogrphy Retrograde - 03/02/2021 2:22 pm CLINICAL HISTORY: CYSTO STENT COMPARISON: Abdomen Pelvis W/Wo Contrast dated 01/19/2021 FINDINGS: Nine intraoperative fluoroscopic images were obtained. Total fluoro time of 20 sections wi th dose of 6.6 mSv. The left ureteral orifice was cannulated. Injection of contrast again demonstrated the stone in the l eft mid ureter. A guidewire was placed. A left double-J ureteral stent was placed. Question some resi dual stone debris in the left proximal ureter. IMPRESSION: Successful placement of a left ureteral stent.
[2021-03-02 16:03] VITALS: BP 125/66; TEMP 97.4; O2SAT 97
--- NOTE | 2021-03-02 20:58 | OP ---
Surgeon: AMY WEST Preoperative Diagnoses: 1.Left ureterolithiasis. 2.Bilateral nephrolithiasis. 3.Acute kidney injury. Postoperative Diagnoses: 1.Left ureterolithiasis. 2.Bilateral nephrolithiasis. 3.Acute kidney injury. 4.Aberrant bladder compliance. 5.Hemorrhagic cystitis. 6.Gross hematuria. 7.Right vesicoureteral reflux. Procedures: 1.Cystoscopy. 2.Bladder irrigation. 3.Left retrograde pyelography. 4.Left ureteral stent placement. Indication For Procedure: Ms. oLng is a 70-year-old woman on methotrexate for rheumatoid arthrit is with a history of CVAs x2, last in 2016, a history of kidney stones, who had undergone a laparosco pic hysterectomy in the early s and presents with recurrent irritative urinary symptoms and urinary tract infections associated with incontinence. Imaging revealed the presence of obstructing left 9 mm ureteral calculus along with an 8 mm lower pole right renal calculus nonobstructing. Urine cultur e was sent 2 days after completion of a prior antimicrobial treatment course for fluoroquinolone resi stant Pseudomonas and was unremarkable for infection. Her basic metabolic panel obtained preoperativ leland revealed some evidence of renal function design, which was presumed to be acute, but could be chr onic. As a result, she was planned for urgent left ureteral stent placement. Procedure In Detail: The patient was consented in the preoperative holding area before being transfe rred to the operative suite where general anesthesia was induced. She was given clindamycin 600 mg a nd gentamicin 80 mg IV antimicrobial prophylaxis. Pneumo boots were provided for DVT prophylaxis. S he was placed in the lithotomy position, padded and secured to the table appropriately. Her genitali a were prepped using Hibiclens and draped in standard fashion. The case was begun using a 22-Luxembourger rigid cystoscope to traverse the urethra and into the bladder with ease. The bladder was decompresse d of cloudy and yellowish orange appearing urine before attempts at cystoscopy were made. Unfortunat leland, the urine was so cloudy and grossly hemorrhagic that it was impossible to visualize adequately. As a result, I irrigated the bladder multiple times to clear it of the prevailing blood until I was able to visualize the mucosa. Throughout the mucosa, there was evidence of mucosal disruption withou t any directly visualizable papillary lesion seen. The bladder was noted to be severely poorly compl iant only excepting may be 100 or 200 mL of fluid before becoming so tensely distended that additiona l fluid irrigation would not be admitted. However, once the urine was clear enough to visualize the left ureteral orifice, I cannulated it with a 5-Luxembourger ureteral access catheter and performed a retro grade pyelogram. Left retrograde pyelography: Using a 70:30 mixture of Omnipaque and saline, contrast was injected via the lumen of the 5-Luxembourger ur eteral access catheter and did propagate up what appeared to be obstructing distal ureter before keyanna gating around the likely point of obstruction, the stone, and propagating into the renal pelvis. Eff orts to delineate the renal pelvis completely and reveal a filling defect were not performed due to t he potential concern for occult infection/infection that did not show up on our urine culture because she had recently come off antimicrobial therapy. The stone itself was not visualized in the distal ureter and therefore was likely of uric acid in composition as it was not radiopaque. I thus passed a Sensor wire via the 5-Luxembourger ureteral access catheter and was able to navigated into the putative u pper pole of the kidney. The wire did coil there fluoroscopically, and I removed the 5-Luxembourger ureter al access catheter and passed a 6-Luxembourger x 24 cm double-J stent with a coil observed fluoroscopically within the left renal pelvis and one cystoscopically formed in the bladder. I then irrigated her bl adder again a few more times before decompressing it completely and removing the scope. She was then taken out of the lithotomy position, awakened from general anesthesia, transferred to a [facility] then transferred to the recovery room in good condition. Complications: None. Discharge Disposition: She should be rescheduled for definitive left ureteroscopy with laser lithotr ipsy within the coming weeks. Repeat preoperative urine culture will be mandatory once patient has b een off antimicrobials for at least 1 week. She likely would benefit from management of her right-si ded nephrolithiasis as well; however, if the stone is invisible to plain film, she may require ureter oscopic intervention for that, which she may elect to await recurrent obstruction before attempting a n invasive procedure for a nonobstructing stone. Otherwise, if no sign of actual infection within he r urine, if the disrupted mucosa persists on followup, we will also plan a cystoscopic bladder biopsi es to rule out malignancy. Ultimately, management of her severely poorly compliant bladder will be r equired with aggressive antimicrobial therapy if no infection is beneath the dysfunction. KRISTEN/GAEL Voice ID: [id number] Report ID: [id number]
== END | disposition home or self-care (01) ==
LOC: OR 11:20
PROVIDERS: ATTEND Urology
PROC: 0T778DZ Dilation of Left Ureter with Intraluminal Device, Via Natural or Artificial Opening Endoscopic (ICD-10-PCS; principal; 2021-03-02 14:30)
DX: N20.2 Calculus of kidney with calculus of ureter (principal); N17.9 Acute kidney failure, unspecified; N30.91 Cystitis, unspecified with hematuria; N13.70 Vesicoureteral-reflux, unspecified; Q64.10 Exstrophy of urinary bladder, unspecified
CPT/HCPCS: 52332; 93005; 85025; 80048; 36415; 85610; 85730; 71045; 74450; 51610; J2704; J2250; J3010; J1100; J7120; J1580; J2405

== ENCOUNTER 2021-03-06 12:39 | Inpatient (IN) | payer OTHER ==
[2021-03-06] MEDS: VANCOMYCIN 1 GM in NA CHLORIDE 0.9% 250 ML IVPB SCH (11:00)
--- OUTSIDE RECORDS SUMMARY | 2021-03-06 13:04 | XMS REPORT | Continuity of Care Document ---
:1950 Author Organization [facility] t Address [address] [place] [address] Smith [address] [place] [id number] Care Team Providers Name Role Phone SAL FENG Primary Care Physician Unavailable SYSTEM, NOT IN Attending Clinician Unavailable Sal Fneg MD Attending Clinician SAL FENG Attending Clinician Unavailable Keshia HORTON Attending Clinician Ashly Hayes Attending Clinician Andrew LEONARDO, A Attending Clinician Unavailable Dinh CHAVARRIA, M Attending Clinician Lalo KAY Attending Clinician Unavailable Ashly RASCON Attending Clinician Unavailable Dangelo LEONARDO, R Attending Clinician Anjana HORTON Attending Clinician Fco Fine MD Attending Clinician Mary Attending Clinician Radiology Attending Clinician Unavailable MARIS Attending Clinician Unavailable MD MARIS PJosé Miguel Attending Clinician Unavailable Artemio Chopra Attending Clinician Aubrey HARRELL Attending Clinician Unavailable Physician, Associated Attending Clinician Unavailable Og Joy Attending Clinician SAL FENG Admitting Clinician Unavailable MARIS Admitting Clinician Unavailable MD MARIS PJosé Miguel Admitting Clinician Unavailable Aubrey HARRELL Admitting Clinician Unavailable Og Joy Admitting Clinician Payers Payer Name Policy Type Policy Effective Date Expiration Date Sour ce Number [facility] [id number] 2020 Cade rson MEDICARE 00:00:00 [facility] MEDICARE [id number] 2020-PresentMe dicare Problems Condition Condition Condition Status Onset Resolution Last Treating Co mments Source Name Details Category Date Date Treatment Clinician Date Malignant Malignant Disease Active Overview: melanoma melanoma 11-19 Formattin And erso of back of back 00:00: g of this n 00 note might be different from the original. 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 Left upper back Venous Venous Disease Active stasis stasis 11-19 Anderso edema of edema of 00:00: n bilateral bilateral 00 lower lower limbs limbs Chronic Chronic Disease Active ethmoidal ethmoidal 8-14 Cade rso sinusitis sinusitis 00:00: n 00 Chronic Chronic Disease Active sphenoidal sphenoidal 8-14 An derso sinusitis sinusitis 00:00: n 00 M79.641 Diagnosis Active 2019-10-01 Me moria M79.642 10-01 13:35:00 l M79.641 00:00: Brendan M79.642 00 Active 10/01/2019 [facility] Rheumatoid Rheumatoid Disease Active [facility] arthritis( arthritis( 12-25 Ximena kes - 714.0) 714.0) 00:00: Medical 00 Center Essential Essential Disease Active [facility] hypertensi hypertensi 12-25 Ximena kes - on on 00:00: Medical 00 Center Mixed Mixed Disease Active [facility] hyperlipid hyperlipid 12-25 Ximena liban [place] 00:00: Medical Center History of History of Disease Active M D cerebrovas cerebrovas 12-25 An derso cular cular 00:00: n accident accident 00 History of History of Disease Active M D operative operative 12-25 Cade rso procedure procedure 00:00: n on foot on foot 00 Transient Transient Disease Active MD cerebral cerebral 12-25 Renzo o ischemia ischemia 00:00: n 00 CVA Diagnosis Active 2014-04-08 Mem oria 8-11 22:02:00 l CVA 00:00: Brendan 00 Active 03/31/2014 [facility] ACUTE L Diagnosis Active 2014-05-09 Me moria THALAMIC 08-21 10:48:00 l ISCHEMIC ACUTE L 23:59: Cara nn STROKE THALAMIC 00 ISCHEMIC STROKE Active 08/21/2000 [facility] Essential Essential Disease Active hypertensi hypertensi 09-15 An derso on on 00:00: n 00 Rheumatoid Rheumatoid Disease Active M D arthritis arthritis 09-15 Cade rso 00:00: n 00 Hypertensi Problem Resolve 2019-10-04 Memoria ve d 00:14:58 l disorder, [place] systemic Hypertensi arterial ve (disorder) disorder, systemic arterial (disorder) Resolved Problem 10/04/2019 [facility], [facility] Rheumatoid Problem Resolve 2019-10-04 Memoria arteritis d 00:14:58 l (disorder) [place] n Rheumatoid arteritis (disorder) Resolved Problem 10/04/2019 [facility], [facility], [place] 714.0 Diagnosis Active 2013-12-25 Mem oria 16:33:00 l 714.0 [place] Active [facility] XRAY Diagnosis Active 2014-01-27 Mem oria 15:30:00 l XRAY [place] Active [facility] CVA Diagnosis Active 2014-04-08 Mem oria 22:02:00 l CVA Brendan Active [facility] HAND PAIN Diagnosis Active 2016-11-16 Memoria 10:31:00 l HAND [place] PAIN Active [facility] Allergies, Adverse Reactions, Alerts Allergy Allergy Status Severity Reaction(s) Onset Inactive Treating Comm ents Source Name Type Date Date Clinician Penicill Propensi Active Questiona [facility]-07 [facility] - adverse 00:00: allergy Medical reaction 00 to Center s penicilli n penicill penicill Active Memori a ins<sup> ins<sup> 8-08 l 1</sup> 1</sup> 05:00: [place] 00 penicill penicill Active Memori a ins ins l Brendan sulfa sulfa Active Memoria drugs drugs l [place] Family History Family Member Diagnosis Comments Start Date Stop Date Source Natural mother Melanoma MD Ronn sorensen Natural mother Skin cancer MD Muller on Natural sister Breast cancer MD Mohamud rsfrannie Natural son Melanoma MD Spencer Social History Social Habit Start Date Stop Date Quantity Comments Source Sex Assigned At [facility] Tobacco use and 2020-12-08 2020-12-08 Never used MD Muller on exposure 00:00:00 00:00:00 Alcohol intake 2020-12-08 2020-12-08 Current drinker MD Nancy collins 00:00:00 00:00:00 of alcohol (finding) Tobacco Comment 2020-11-19 2020-11-19 N/A MD Muller on 00:00:00 00:00:00 Social History 2014-03-31 2014-03-31 [facility] 23:58:41 23:58:41 Smoking Status Start Date Stop Date Source Never smoker MD Spencer Medications Ordered Filled Start Stop Current Ordering Indication Dosage Frequency Signature Comments Components Source Medication Medication Date Date Medication? Clinician (SIG) Name Name UNABLE TO Yes Med Name: FIND -06 Align Anderso 15:47: probiotic n 44 cholecalcif Yes 1000U Take 1,000 MD paloma, 5-06 Units by Anderso vitamin D3, 15:47: mouth n 10 mcg (400 44 daily. units) tablet niacin Yes 500mg Take 500 MD (SLO-NIACIN 5-06 mg by Anderso ) 500 mg CR 15:47: mouth. n tablet 44 omega-3 Yes 1g Take 1 g MD fatty 5-06 by mouth. Anderso acids-fish 15:47: n oil 44 340-1,000 mg cap aspirin 81 Yes 81mg Take 81 mg M D mg EC 5-06 by mouth 3 Anderso tablet 15:47: (three) n 44 times a week Monday, Monday and Monday. vitamin E Yes 400U Take 400 MD 400 units 5-06 Units by Renzo o capsule 15:47: mouth. n 44 calcium Yes 1{tbl} Take 1 MD carbonate-v 5-06 tablet by And erso itamin D3 15:47: mouth n (calcium-vi 44 daily. tamin D) 500 mg - 200 units (1,250 mg calcium carbonate) tablet red yeast Yes Take by rice 600 mg 5-06 mouth 3 Shon so cap 15:47: (three) n 44 times a week Monday, Monday and Monday. cycloSPORIN Yes 1[drp] Administer MD Royal 5-06 1 drop to Anderskendra (RESTASIS) 15:47: both eyes. n 0.05% 44 ophthalmic emulsion acetaminoph Yes 500mg Take 500 M D en 5-06 mg by Andsarai (TYLENOL) 15:47: mouth. n 500 mg 44 tablet biotin Yes Take by 10,000 mcg 5-06 mouth 3 Renzo o cap 15:47: (three) n 44 times a week Monday, Monday and Monday. traMADol Yes Postoperati 50mg Take 1 MD (ULTRAM) 50 4-16 ve pain tablet (50 Anderso mg tablet 00:00: mg) by n 00 mouth every 6 (six) hours as needed for moderate pain. methotrexat Yes 2.5mg Take 2.5 M D e 2.5 mg 3-30 mg by Anderso tablet 00:00: mouth once n 00 a week. nystatin Yes MD (MYCOSTATIN 3-25 Anderso ) 100,000 00:00: n units/mL 00 suspension dilTIAZem Yes TAKE 1 MD (CARDIZEM 2-19 CAPSULE BY Cade edmondson CD) 180 mg 00:00: MOUTH n 24 hr 00 EVERY DAY capsule hydroCHLORO Yes TAKE 1 MD thiazide 2-15 TABLET BY Renzo o (HYDRODIURI 00:00: MOUTH n L) 25 mg 00 EVERY tablet OTHER DAY metoprolol Yes TAKE 1 MD succinate 2-03 TABLET BY Shon matos (TOPROL XL) 00:00: MOUTH n 50 mg 24 hr 00 TWICE A tablet DAY..PATIE NT DUE FOR LABS AND OFFICE VISIT methylPREDN Yes TAKE 1 MD ISolone 1-14 TABLET BY Ronn (MEDROL) 4 00:00: MOUTH n mg tablet 00 EVERY MORNING WITH FOOD OR MILK celecoxib Yes TAKE 1 MD (CeleBREX) 1-14 CAPSULE BY And erso 200 mg 00:00: MOUTH n capsule 00 EVERY DAY WITH FOOD folic acid Yes TAKE 1 MD (FOLVITE) 1 1-07 TABLET BY And erso mg tablet 00:00: MOUTH n 00 EVERY DAY venlafaxine Yes TAKE 1 MD (EFFEXOR-XR 1-04 CAPSULE BY An der ) 75 mg 24 00:00: MOUTH n hr capsule 00 EVERY DAY WITH FOOD fenofibrate Yes TAKE 1 MD nanocrystal 9-26 TABLET BY And erso lized 00:00: MOUTH n (TRICOR) 00 EVERY DAY 145 mg tablet potassium Yes TAKE 1 MD chloride 5-11 TABLET BY Renzo gardner (K-DUR,KLOR 00:00: MOUTH n -CON M) 10 00 EVERY mEq tablet DAY..PATIE NT DUE FOR LABS AND OFFICE VISIT methotrexat Yes rheumatoid 7.5mg Q7D Take 7.[address] [facility] e 2.5 MG 5-10 arthritis mg by Lukes - tablet 00:00: mouth once Medic al 00 a week . [place] folic acid Yes 1mg QD Take [address] (FOLVITE) 1 5-09 by mouth Luke s - MG tablet 18:00: daily. Medica l 15 [place] coenzyme Yes 100mg QD Take [address] Q10 100 mg 5-09 mg by [facility]ukes - capsule 18:00: mouth Medical 15 daily. [place] vitamin E Yes 400U Q.5D Take [address] 400 UNIT 5-09 Units by [facility]ukes - capsule 18:00: mouth 2 Medical 15 (two) Center times daily. naproxen Yes 220mg QD Take [address] (ALEVE,ANAP 5-09 mg by [facility]ukes - VLAD,MIDOL) 18:00: mouth Medica l 220 MG 15 daily. Center tablet cholecalcif Yes 400U QD Take [address] paloma 5-09 Units by Lukes - (VITAMIN 18:00: mouth Medical D3) 400 15 daily. Center unit Tab tablet b complex 2017- Yes 1{tbl} QD Take [address] vitamins 5-09 tablet by Lukes - tablet 18:00: mouth Medical 15 daily. [place] aspirin 325 2017- Yes 325mg QD Take [address] MG tablet 5-09 mg by Lukes - 18:00: mouth Medical 15 daily. [place] potassium 2017 Yes 10meq Q.5D Take [address] chloride SA 5-09 mEq by Lukes - (K-DUR,KLOR 18:00: mouth 2 Med ical -CON) 10 15 (two) Center MEQ tablet times daily. esomeprazol Yes 40mg QD Take [address] e (NEXIUM) 5-09 by mouth [facility] - 40 MG 18:00: daily. Medical capsule 15 Center cyanocobala Yes 500ug QD Take [address] min 5-09 mcg by Lukes - (VITAMIN 18:00: mouth Medical B-12) 500 15 nightly. Center MCG tablet ascorbic Yes 1000mg QD Take 1,[address] acid, 5-09 mg by [facility]ukes - vitamin C, 18:00: mouth Medica l (VITAMIN C) 15 nightly. Cent er 1000 MG tablet omega-3 Yes 1g QD Take [address] [facility] fatty 5-09 by mouth [facility]ukes - acids-fish 18:00: nightly. Med ical oil 15 Center 340-1,000 mg Cap per capsule magnesium Yes 400mg QD Take [address] oxide 5-09 mg by Lukes - (MAG-OX) 18:00: mouth Medical 400 mg 15 nightly. Center tablet methylPREDN Yes 2mg QD Take [address] ISolone 5-09 by mouth [facility]ukes - (MEDROL) 2 18:00: daily. Medic al MG tablet 15 Center metoprolol Yes 50mg Q.5D Take [address] (TOPROL-XL) 5-09 by mouth 2 Ximena kes - 50 MG 24 hr 18:00: (two) Medic al tablet 15 times Center daily. amLODIPine Yes 10mg QD Take [address] (NORVASC) 5-09 by mouth [facility] - 10 MG 18:00: daily. Medical tablet 15 Center Vitamin C No 1,000 mg, Mem oria 04-03 Route: PO, l 14:00: Drug form: [place] 00 TAB, Daily, Dosing Weight 58.001, kg, Start date: 04/03/14 9:00:00, Duration: 30 day, Stop date: 05/02/14 9:00:00 Spironolact No Notes: Tomas priscila one 04-03 (Same As: l 14:00: Aldactone) [place] 00 Co-Q10 No 100 mg, Memoria 04-03 Route: PO, l 14:00: Drug form: Brendan 00 CAP, Daily, Dosing Weight 58.001, kg, Start date: 04/03/14 9:00:00, Duration: 30 day, Stop date: 05/02/14 9:00:00 Vitamin B No 500 Memoria 12 04-03 microgram, l 14:00: Route: PO, [place] 00 Drug form: TAB, Daily, Dosing Weight 58.001, kg, Start date: 04/03/14 9:00:00, Duration: 30 day, Stop date: 05/02/14 9:00:00 Vitamin D No 400 Memoria 04-03 IntlUnit, l 14:00: Route: PO, Drug form: TAB, Daily, Dosing Weight 58.001, kg, Start date: 04/03/14 9:00:00, Duration: 30 day, Stop date: 05/02/14 9:00:00 Folic Acid No Notes: Memor ia 04-03 (Same as: l 14:00: Folvite) Magnesium No Notes: Memori a Oxide 04-03 (Same as: l 14:00: Mag-Ox [place] 400) Magnesium oxide 484fn=264q g elemental magnesium Dose=____m g magnesium oxide (___mg elemental magnesium) Aspirin 325 Yes 325 mg = 1 Memoria MG Enteric 04-03 tab, PO, l Coated 11:10: Daily, # [place] Tablet 00 100 tab, 0 Refill(s) rosuvastati Yes 10 mg = 1 M emoria n 10 mg 8- tab, PO, l oral tablet 11:10: Bedtime, # [place] 00 30 tab, 3 Refill(s) Crestor No Notes: Memoria 8-14 (Same As: l 02:00: Crestor) Brendan Artificial No 1 drp, Memor ia Tears 04-02 Route: l 22:00: Each [place] 00 Affected Eye, TID, Drug form: SOLN, Start date: 04/02/14 17:00:00, Duration: 30 day, Stop date: 05/02/14 13:00:00 24 HR No Notes: Memoria Metoprolol 04-02 (Same as: l Tartrate 50 22:00: Toprol XL) [place] MG Extended December split Release tab, but Tablet do not [Toprol] crush. Vitamin E No 400 Memoria 04-02 IntlUnit, l 22:00: Route: PO, Drug form: CAP, BID, Dosing Weight 58.001, kg, Start date: 04/02/14 17:00:00, Duration: 30 day, Stop date: 05/02/14 9:00:00 Norvasc No Notes: Memoria 04-02 (Same as: l 20:00: Norvasc) potassium No Notes: Memori a chloride 04-02 (Same as: l 15:00: KCL) Infuse no faster than 10 mEq/hr if given peripheral ly. Potassium No 30 mEq, Memor ia Chloride 04-02 Route: l 13:11: IVPB, [place] 00 ONCE, Dosing Weight 58.001, kg, Start date: 04/02/14 8:11:00, Stop date: 04/02/14 8:11:00 Potassium No 10 mEq, Memor ia Chloride 04-02 Route: l 13:08: IVPB, [place] 00 ONCE, Dosing Weight 58.001, kg, Start date: 04/02/14 8:08:00, Stop date: 04/02/14 8:08:00 atorvastati No Notes: Tomas priscila n 04-02 (Same as: l 02:00: Lipitor) [place] 00 Saline No Notes: Memoria Flush 0.9% 8-12 (Same as: l 14:00: BD [place] 00 Posiflush) Aspirin 325 No Notes: (Do Memoria MG Enteric 812 Not Crush) l Coated 14:00: Do not Brendan Tablet 00 crush or chew. Docusate No Notes: Memoria 8-12 (Same as: l 14:00: Colace) [place] 00 (Do Not Crush) Calcium No 1,000 mg, Memor ia Chloride 8-12 10 mL, l 08:08: Route: [place] 00 IVPB, ONCE, Dosing Weight 58.001, kg, Start date: 04/01/14 3:08:00, Stop date: 04/01/14 3:08:00 Potassium No Notes: Memori a Chloride 8-12 (Same as: l 08:07: KCL) [place] 00 Infuse no faster than 10 mEq/hr if given peripheral ly. potassium No Notes: Memori a chloride 8-12 (Same as: l 06:30: KCL) Brendan 00 Infuse over 2 hours. Potassium No Notes: Memori a Chloride 8-12 (Same as: l 05:38: KCL) Brendan 00 Infuse no faster than 10 mEq/hr if given peripheral ly. heparin, No Notes: Memoria porcine 8-12 porcine l 05:00: heparin B[place] 00 Iohexol No Special Memoria 8-12 Instructio l 04:53: ns: Dose = Brendan 00 2.2ml/kg, Max dose = 100ml -- "To be infused by Radiology Staff ONLY" Potassium No Notes: Memori a Chloride 8-12 Infuse at l 04:07: a rate of Brendan 00 10 mEq/hr. (Same as: KCL) Saline No Notes: Memoria Flush 0.9% 8-12 (Same as: l 02:07: BD Brendan 00 Posiflush) Acetaminoph No Notes: Do M emoria en 04-01 not exceed l 02:07: 4 gm/day. [place] 00 (Same as: Tylenol) Bisacodyl No Notes: Memori a 8-12 (Same As: l 02:07: Dulcolax, [place] 00 Bisco-Lax) Ondansetron No Notes: Tomas priscila 04-01 (Same as: l 02:07: Zofran) Brendan 00 Labetalol No 105mmHg Tomas priscila 12 l 02:07: [place] 00 Biotin Yes 5000 mcg, Memori a 8-12 PO, Daily, l 00:04: 0 Brendan 00 Refill(s) Vitamin D Yes 400 Memoria 8-12 IntlUnit, l 00:04: PO, Daily, Brendan 00 0 Refill(s) celecoxib Yes 200 mg = 1 Me moria 200 MG Oral 8-12 cap, PO, l Capsule 00:04: Daily, # Mckinley n [Celebrex] 00 30 cap, 0 Refill(s) vitamin E Yes 400 Memoria 400 intl 812 IntlUnit = l units oral 00:04: 1 cap, PO, H ermann capsule 00 BID, # 100 cap, 0 Refill(s) Co-Q10 100 Yes 100 mg = 1 M emoria mg oral 8-12 cap, PO, l capsule 00:04: Daily, # Mckinley n 00 30 cap, 0 Refill(s) Folic Acid Yes 1 mg = 1 Mem oria 1 MG Oral 8-12 tab, PO, l Tablet 00:04: Daily, # Brendan 00 30 tab, 0 Refill(s) Amlodipine Yes 2.5 mg = 1 M emoria 2.5 MG Oral 8-12 tab, PO, l Tablet 00:04: Daily, # Brendan [Norvasc] 00 30 tab, 0 Refill(s) metoprolol Yes 50 mg, PO, M emoria 50 mg oral 8-12 BID, # 30 l tablet, 00:04: tab, 0 Brendan extended 00 Refill(s) release Vitamin C Yes 1,000 mg = Me moria 1000 mg 8-12 1 tab, PO, l oral tablet 00:04: Daily, # Seng owens 00 30 tab, 0 Refill(s) 24 HR Yes 100 mg = 1 Memori a tramadol 8-12 tab, PO, l hydrochlori 00:04: Daily, # He rmann de 100 MG 00 30 tab, 0 Extended Refill(s) Release Tablet Rosuvastati No 5 mg = 1 Me moria n calcium 5 8-12 tab, PO, l MG Oral 00:04: Bedtime, # Herm lissette Tablet 00 30 tab, 0 [Crestor] Refill(s) Estrogens, Yes 0.45 mg = Me moria Conjugated 8-12 1 tab, PO, l (FCI) 0.45 00:04: Daily, # Her garcia MG Oral 00 30 tab, 0 Tablet Refill(s) [Premarin] magnesium Yes 500 mg = 1 Me moria oxide 500 8-12 tab, PO, l mg oral 00:04: Daily, # Mckinley n tablet 00 10 tab, 0 Refill(s) Non-Formula No Refill(s) M emoria ry Home 8-12 0 l Medication 00:04: [place] 00 spironolact Yes 25 mg = 1 M emoria one 25 mg 8-11 tab, PO, l oral tablet 00:14: Daily, 0 He rmann 00 Refill(s) coenzyme Yes 200mg Take 200 MD Q10 100 mg 8-11 mg by Anderso capsule 00:00: mouth n 00 daily. Vitamin Yes 500 Memoria B-12 500 8-10 microgram l mcg oral 23:00: = 1 tab, Cara nn tablet 00 PO, Daily, # 30 tab, 0 Refill(s) Vital Signs Vital Name Observation Time Observation Value Comments Source HEIGHT 2020-11-19 11:24:00 157.5 cm WEIGHT 2020-11-19 11:24:00 59.9 kg HEIGHT 2020-11-19 11:24:00 157.5 cm WEIGHT 2020-11-19 11:24:00 59.9 kg Systolic blood 2020-12-24 16:31:00 171 mm[Hg] pressure Diastolic blood 2020-12-24 16:31:00 80 mm[Hg] MD Nancy collins pressure Heart rate 2020-12-24 16:31:00 61 /min MD Menendez son Body temperature 2020-12-24 16:31:00 36.83 Pema MD Artemio magaña Respiratory rate 2020-12-24 16:31:00 16 /min MD Artemio magaña Body weight 2020-12-24 16:31:00 60.8 kg MD Menendez marisa BMI 2020-12-24 16:31:00 24.51 kg/m2 MD Shon cunningham Oxygen saturation in 2020-12-24 16:31:00 96 /min MD Spencer Arterial blood by Pulse oximetry Body height 2020-11-19 16:24:00 157.5 cm MD Shon cunningham Systolic (mm Hg) 2014-04-03 19:00:00 Tomas rial [place] Diastolic (mm Hg) 2014-04-03 19:00:00 Mem orial [place] Respitory Rate 2014-04-03 19:00:00 Memori al Brendan Respitory Rate 2014-04-03 18:00:00 Memori al [place] Respitory Rate 2014-04-03 17:48:00 Memori al [place] Diastolic (mm Hg) 2014-04-03 17:48:00 Mem orial [place] Systolic (mm Hg) 2014-04-03 17:48:00 Tomas rial Brendan Diastolic (mm Hg) 2014-04-03 17:00:00 Mem orial [place] Systolic (mm Hg) 2014-04-03 17:00:00 Tomas rial [place] Temperature Oral (F) 2014-04-03 13:31:00 96.9 F [facility] Height 2014-03-31 23:50:00 157.48 cm [facility] Weight 2014-03-31 23:50:00 [facility] BMI Calculated 2014-03-31 23:50:00 Memori al Brendan Procedures Procedure Date / Time Performed Performing Clinician [facility] e PATHOLOGY SURGICAL 2020-12-04 15:00:00 Fran Feng MD INTERPRETATION EXCISION OF MALIG[place] 2020-12-04 14:12:00 Fran Feng LESION OF TRUNK, POC GLUCOSE SCREEN 2020-12-04 13:07:00 Fran Feng MDon XR SPINE CERVICAL 2 OR 3 2020-12-02 20:42:19 Ken Kay MD [facility] 2019-NCOV COVID-19 2020-12-02 14:18:00 Fran Feng BASIC METABOLIC PANEL, 2020-12-02 13:24:00 Chi Rascon MD CALCIUM TOTAL COMPLETE BLOOD COUNT W/ 2020-12-02 13:24:00 Chi Rascon MD INDICES HEMOGLOBIN A1C 2020-12-02 13:24:00 Chi Rascon MD Cade rson PROTHROMBIN TIME 2020-12-02 13:24:00 Chi Rascon MD And erson HEPATITIS C VIRUS ANTIBODY 2020-12-02 13:24:00 Mariella Rascon MD GLUCOSE LEVEL 2020-12-02 13:24:00 Chi Rascon MD Cade rson BLOOD UREA NITROGEN 2020-12-02 13:24:00 Chi Rascon MD ELECTROLYTE PANEL 2020-12-02 13:24:00 Chi Rascon MD derson SERUM CREATININE 2020-12-02 13:24:00 Chi Rascon MD And erson .GLOMERULAR FILTRATION 2020-12-02 13:24:00 Chi Rascon MD RATE CALCIUM LEVEL TOTAL 2020-12-02 13:24:00 Chi Rascon MD HEPATITIS C VIRUS AB 2020-12-02 13:24:00 Chi Rascon MD SCREEN W/REFLEX HCV PCR EKG, 12-LEAD (SCHEDULED) 2020-12-02 00:00:00 Chi Rascon MD HC 2019-NCOV COVID-19 2020-11-17 17:58:00 Fran Feng OSI CHEST 2020-11-11 22:55:35 Fran Feng MD Cade rson PATHOLOGY OUTSIDE 2020-11-03 00:00:00 Ariel Hernandez MD INTERPRETATION Foot joint operations [facility] Encounters Start End Encounter Admission Attending Care Care Encounter Source Date/Time Date/Time Type Type Clinicians Facility Department ID 2020-11-11 Outpatient CHARLINE BALDERAS MDA [id number] 07:19:05 PROVIDER Renzo sorensen 2020-12-24 2020-12-24 Outpatient EL CHARLINE FENG MDA [id number] MD 10:32:27 11:22:41 FRANALICE sorensen 2020-12-04 2020-12-04 Outpatient VL FENG MDA Surgical [id number] 07:16:00 11:59:00 FRAN sorensen 2020-12-02 2020-12-02 Outpatient LV KAY MDA MDA [id number] MD 15:13:40 15:13:40 KEN sorensen 2020-12-02 2020-12-02 Outpatient LV RASCON, MDA MDA [id number] 09:05:48 09:18:57 CHIHELENA Marreroer so edu 2020-12-02 2020-12-02 Outpatient LV RASCON, MDA MDA [id number] 08:25:16 09:04:09 CHI Ander so edu 2020-12-02 2020-12-02 Outpatient LV RASCON, MDA MDA [id number] 08:13:41 08:18:08 CHI sorensen 2020-11-25 2020-11-25 Outpatient LV FENG MDA MDA [id number] MD 17:08:32 17:08:32 FRANALICE sorensen 2020-11-19 2020-11-19 Outpatient LV FENG MDA MDA [id number] 10:02:55 13:22:06 FRAN sorensen 2020-11-19 2020-11-19 Outpatient EL MDA MDA [id number] 09:59:29 09:59:38 Renzo sorensen 2020-11-17 2020-11-17 Outpatient EL MDA MDA [id number] 12:50:43 13:04:22 Renzo sorensen 2020-11-11 2020-11-11 [facility] Radiology [facility] [id number] 11:00:00 23:59:00 Rosanna Thurston [id number] [place] [id number] [place] [id number] 2020-07-14 2020-07-14 [id number] [place] 00:00:00 00:00:00 KEEGAN [facility] 2020-07-13 2020-07-13 [id number] [place] 00:00:00 00:00:00 KEEGAN 784 Method i 2020-07-13 2020-07-13 Outpatient POLLOCK, [facility] [id number] [place] 00:00:00 00:00:00 KEEGAN 369 Method i 2020-06-23 2020-06-23 Outpatient POLL[place], [facility] [id number] [place] 00:00:00 00:00:00 KEEGAN 027 Method i 2020-04-03 2020-04-03 Outpatient POLLOCK, [facility] [id number] [place] 00:00:00 00:00:00 KEEGAN 685 Method i 2020-03-30 2020-03-30 Outpatient POLLOCK, [facility] [id number] [place] 00:00:00 00:00:00 KEEGAN 323 Method i 2019-10-01 2019-10-01 [id number] 13:26:00 23:59:00 Jyothi A 42 2019-10-01 2019-10-01 Outpatient SE SE [id number] 13:26:00 13:26:00 [facility] artemio [facility] 2016-11-16 2016-11-16 [facility] [id number] 10:22:00 23:59:00 Jyothi A 88 2014-05-01 2014-05-30 Outpatient Physician, [facility] [id number] 08:00:00 23:59:00 Non 00 Associated 2014-03-31 2014-04-03 Outpatient Rufino [facility] [id number] 18:15:00 15:20:00 Rachel Zackary Cataalice 2014-01-27 2014-01-27 Outpatient Keysha [facility] [id number] 15:30:00 23:59:00 Jyothi A 60 2013-12-25 2013-12-25 [facility] [id number] 16:25:00 23:59:00 Jyothi A 27 Results Test Description Test Time Test Comments Results Result Comments Source Pathology Surgical Interpretation 2020-12-09 17:20:00 Test Item Value Reference Range Interpretation Comme nts Submitted [id number] fQ== Clinical History (test code = 07852) Diagnosis [id number] xyY5Lfc6MEUhQDPbwKMaN185s2zrl1nefrTptMY7sWebZCNpCMAtBKowFJUqTuTzFDmuHnPzkhnbjMrc bGluZ (test code CvyoRheSxThvcvxw6ekxdJhsYgzyAEiIdwiBHDowXy8NwKheVdbXkHsOECqnS7jAX7wBLF3MzB8bDckM UdnpInfz5VznuTppnSjjVFxeeluxURhCvdhwAP2DNWpmHVxO2tsekndfa9exMXyMK8paDYpe76kUG7ax CBpZG = 34) NumBszqWGwPefzRJTvYCCwM3oyhpPlUhBuSPUsC1Qbb69hkOW1ENQuSTOnREA1ELt6VKSpVH8udCYuuA == Synoptic MELANOMA OF THE SKIN: Excisi on, Re-Excision (MELANOMA OF THE SKIN: EXCISION, RE-EXCISION - All Specimens) 8th Edition - Protocol posted: 12/18/2019 SPECIMEN Checklist Procedure: Excision Sp ecimen Laterality: Midline TUMOR Tumor Site: Skin of trunk: Mid back Histologic Type: Superficial spreading melanoma (test code (low-cumulative sun damage ( CSD) melanoma) Maximum Tumor ([place]) Thickness (Millimeters): 0.3 (0.25) mm Macroscopic Satellite Nodule(s): Not identified = 9864) Ulceration: Not identif ied Anatomic (George) Level: II (Melanoma present in but does not fill and expand papillary dermis) Mitotic Rate: less than 1 mitoses / mm2 Microsatelli te(s): Not identified Lymphovascular Invasion: Not identified Neurotropism: Not identified Tumor-Infiltrating Lymphocytes: Present, non brisk Tumor Regression: Present, involving less than 75% of lesion MARGINS: Peripheral Margins: Negative for invasive melanoma Status of Me lanoma in situ at Peripheral Margins: Negative for melanoma in situ Deep Margin: Negative for invasive melanoma Status of Melanoma in situ at Deep Margin: Negative for melanoma in situ LYMPH NODES: Regional Lymph Nodes: No lymph nodes submitted or found PATHOLOGIC STAGE CLASSIFICATION (pTNM, AJCC 8th Edition): : Classification assigned in this report includes information from a prior procedure: [id number] E Primary Tumor (pT): pT1a Regional Lymph Nodes (pN): pNX ADDITIONAL FINDINGS Additional Findings: Associated nevus: not ruled out Gross n2cpsXUsLRFjkMTWRESpOWrspkEfPLVgzNXwR0AimvlfONnlHG3oYY3leFopkVNjgHNkAZ3UCVJhDbTz YPVsoVZpdeZcBtUvJOTskYSieJB4PEMhVA8edgsdJProLXzwIGKqksE7WWCecDIwH2JiFESpIF3ehanc MTQ0M Descriptio TkjeN5lifKMZlnfAq2aqIRtfJupGgHvQiGcXALcPJQcFXVacKnmDYJvLLq9xG0QSrpmUHL5BRKQYmszM KPmDK8Kr9vtAEQmcGMqHJU1RBtmrIFyBVQqXEZiNBb8CKOuYQnanHYbJI6hiTcoZlugrEjqw9ZmzFOxZ GlkID n (test DfGHXuGJwrDPPdHE4SOaPlSHUtTjR6WICiXZe3WZp1QU5RKbUbEHIiVDi4IXl6UKGlUMx1ALfxWE0NKF cnZtBnMcRhCPU2QTC4XWTtNCLmBvXaLHGiJLMjUZhoLYtoosFfNNDlYIDfCSfnSwvgSCorP24enXuirD 5cYlx code = vwkFkJPD7MQNznnAUPmycdLUwgbyyrCemLyWguHCjRkEcAOhtoUFeuZUyPGtpsiCvyduiAGMINxzmnDY kwPysDCIjIaJsOfAvnfqieFkyrFxzMBilg2ltWR5jLEYlE6kijCKkVT5dgUWnSROqt8Q2QAG4hLPufJA zdXBl [id number] klcupnhjcQ9xDaXvuKu1J4bwwJAmnUDgCXLpfyJxGOXdyZWloQPeZE55TLIrREBsFD1hXVY9PJLgETY3 IivmhNYeVrEhX39fnACsBUAjc7jsXOCbjY2lMHaevWMeGFW4zHK7HIcbmzAlKSIuIAR1K4alLDAdcI6q YSBkZ ) HJ4oDYsOiQbAydzL84bySybbFMflhNiBNPqW09dzZNvDIlnlIctFNSybO8laGJdeJr3C4ilDSGes8OwU OVyw5KlKeNvICRnRX2tJBXpjK5zGpFqiNx1L8czPOZvaBW9GCFewSZ3aRCbXLmfsaIxEOnvvrAiHEynL HNraW 1nd2HrEbWiATI8mUCwNMGtmxFkLDRiXOYxzQJndJpgVJWtoM7gTRXvd2ZdsYSiBZEjG4HeRYXrQSMbaU QlBW46TVHuFHKiw99cx4QbKBAzd5RwAACxONOwiKOusp3aKGiaDzPcoL4eDSAcPvjbE45tSpSlwYYdKM RpYWw fGS7yIBGzCwXymNAdqa4fREppyKVsNVchZCWmLHBteFTbuG5ixgGprqUfVAYkMDvbpVPpIFD1mC0sBIQ qKoAikHRpCIUvrpUnYMEuYN6gOEcxeGI6gzPhCWDpTYmypw7yHTFhvF8ugIe3TXVzPNXzx29epI1sQQH seWlu YaH6kKXeqM8pl4odqVVkf5Dklr2iRSRcKIBggZRyrU2qdeYzmmCziGLysZF3GDHtIX13cVMddWblXTci wU9kKXklzG7mEDpEUbRUY0MOKePksMZgQLB8uPRuyV9jWFOnatPwO2ZnpG2xKFGot5PfMPMsOQLrQCJj ZXBcb LtuYVVecJmkSFGHZPLNWA7MMEDUNJP8KHVjFXEgDCZxkvIgLKVlrDgtfN1gCOCkMMUkiIY4PVKpUFLhR DxqxZsdMKViWOMskJFdRJX2Cy2gzSUaVTTkbiOtsgNgsRXhlzNxo0FgtZUvdFclgUb6OAPpw18soYA4F XJhbC F1ncBzJXAcJArxBWQ9LXR3OLN3rqRnaoJyaTTqBMHxb7PfEefhXOKwVDRoNyZISHMpLK5xBTybmHM6kB KoXAgdenRotHFyKHToAoSeYdgHXkeytLMmbggebUxjAwZtcFGoKeHhsZvcsP00LUToiFMlDNL7FZ2uWR Bhclx eLBDjEMHfJOD5JQkjxD27zVWjTSFiJBSslQXsfU1BMSNwMWP6KHxljI84iHKmSE4DYEJuNNL2RFFbhFR yBYL0SF4mwA6BvU== Biomarker k5fhhMSdKYDksPG4EbOuJBKsr7mvc5GajLEgeWRdVFswyOZvcuZmvi36nEC9hV02GR6vVZLjArO1YUOq ovT0Nbt4VWXxFTDiaMCrW241e4cvy1riskTnnJR0wFlpKFIdXOGlVCnaBFYaJmNzLh8CCGLaic0= Block(s) (test code = 9841) Disclaimer w4gwcVCdFGWmtOWdVoAgBAKoVRFtw8ffNCZwvUGiJfPqDqXzWzVlAhubtPZeXSFkLlThy5kdd054qKKl i3qeCQJlRqU7aKWyXXRpgXWfH748QAKqMUgxs8gjt0IbVXXpyNKqp6Z7CXYZpebaxEh2eNnuK48pf9N5 YmwgO (test code 8ceQNUkUXXvW4NcHB5lMBMrXqc0WDC2ZDS9QEBvLLJqM7HzCG8oHZOqcBHqWEt0u9mpgRwlQPQkTTE0j 6zpZRbtmoZaFN5jqn8ibEa4t0ibkfOiZEDhLUBiyYCBOMGeX8EpsGowEw6ngUx2oUdxFmcpXLW2Tru1V W5rbm = 9844) 44era6gEdzXQRieldzEsS3UFodIZRdevphXIh0ULfmZOAqhFA3MOWgmYCuD3QiBYSpGD2laxs2CKZ6FZ zcEZBcYtK4PXEiwFClPVApqXoeMYvrt229OSV8BwBoYA1fN3Lcu3H7zX0mqGMbHNXfiVMeCjJyZTMcdm 1zaGF dLCnmt4RqYRR9mdY7dLFgwERpTFNiJL73Hlbpo4RiBbnyJPK8XBMepmOea5Hae5abDfKcazWfT8lqI4H cZYJaDAJxSVMnTjKphwOmg4Vyq3OimJMvvUd3b2fwAKImFKPcgJzdh8ttCGS4WHUnT1N4xCHpx4ijPJt tYXJn zMB0pjW8UQClaWTyL1PozT4kEFDvUR1lzjm1j9efTLE4HGjfHLSsRsT3hnY1YAGsvIFkRAJriDniDQcd j913EDA9DxEwXRYwz1LmA4HrzZogB75xyNyhJ38uIVRhtCtbcN7rcRtlfB4nTgOeNjHwTKxndXsouNUy blxmM NojqfB7SRsuhkulVUMgLIldS2meCqXrVTAiuLchQFmod4PzOTXjZWGmFghwezA9CTTPg03tGKZuw0HkJ JAyjT8vnLRvBHznjxZiaOD8OPtruiZxCjOgjjJySKJwqK7dMMKlQE8bHJQahbYmek7ajkDcABQfCRDpK 3Rlcm nyuYumzbSqUMWnub0zygZrGOP6DPPYZI7TWVWjMJGnv96sAYQqkTnghW0jeEJumqIsQUOzm2TnhG7lyO AXQYXbA1hcZA6tUIwwl9VomQXvlRNysNJ7HQWtt2OfPoEikgDfcOWtmOMpA9YtgRzrP0lqSXJvSUAtkd BhcHB oh4TlKQXptPF5uWSpNA2NIvIUw25gLUSwTPCDixTuPDZwyNvviIW7dmJ4tX1vRpMTFtMdsDLjeSXjOxm sTWTge117yn0zxtY2QLZmGXPsuluoh8YvSCKrULJxxF76YLKyJCEfwl7sihdxzOXsopMxM1Nepxy0iX4 iXHBs YWluXGYxXGZzMjJcbGFuZzEwMzNcaGljaFxmMVxkYmNoXGYxXGxvY2 hcZjFcZnMyMlxwYXJ9 [facility] Glucose [id number] 13:22:03 Test Item Value Reference Range Interpretation Comments POC Glucose (test 90 mg/dL 70-99 Capillary blood code = 32865-9) samples, e.g . obtained by fingerstick, may have inaccurate results in patients wit h decreased perip heral blood flow. Met hod description: Al l results are juan sured using Electroch emistry test methodolog y. The glucose in the sample mixes with the reagents on the test str ip. The reaction produc es an electric curren t. The amount of curre nt produced is proportional to the glucose concent ration in the blood. PO Sample Type Venous (test code = 9554) Performing Lab [facility] (test code = [facility] [address]) Clinical Lab, [address] [facility], [place], [place] [address]; Charity Fundraiser: MD MD Caitlyn Bhandari COVID-19 (KARLY-CoV-2) PCR Tqabotkcugrw3892-81-90 02:42:57 Test Item Value Reference Interpretation Comments Range COVID19 SARS Pre-OR Procedure Indication (test code = 09698) COVID19 SARS Result Not Detected Not Detected (test code = 17226-7) COVID19 SARS SARS-CoV-2 NOT Detected. Interpretation (test Reference Range: Not code = 72452) Detected Methodology: The [employer]varez RealTime SARS-CoV-2 assay is a qualitative real-time reverse tire repairman polymerase chain reaction (ice guard inspector-PCR) test to detect RNA from SARS-CoV-2 in nasal, nasopharyngeal and oropharyngeal swabs from patients with signs and symptoms of infection who are suspected of COVID-19 by their health care provider. The Alvarez RealTime SARS-CoV-2 performed on the Resource Interactive000 System is a dual target assay with primers and probes for the RdRp and N genes. Results must be interpreted within the context of all relevant clinical and laboratory findings, and epidemiological risk factors. Positive results are indicative of the presence of SARS-CoV-2 RNA; clinical correlation with patient history and other diagnostic information is necessary to determine patient infection status. Positive results do not rule out bacterial infection or co-infection with other viruses. Negative results do not preclude SARS-CoV-2 infection and should not be used as the sole basis for patient management decisions. The [employer]varez RealTime SARS-CoV-2 assay is for in vitro diagnostic use under FDA Emergency Use Authorization only. Testing is limited to laboratories certified under the Clinical Laboratory Improvement Amendments of 1988 (CLIA), 42U.S.C. 263a, to perform high complexity tests. The Test was performed by the CLIA-certified, high-complexity Molecular Diagnostics Laboratory (MDL) at [facility] under the Food and Drug Administration (FDA) s Emergency Use Authorization. Factsheet for patients: https://www.[facility].org/ AbbottFactSheetPatientsFact sheet for healthcare providers: https://www.[facility].org/ AbbottFactSheetHCP Test performed by:[facility] Diagnostic [address] [place] [address] MD SpencerX-ray Spine Cervical 2 or 3 Imdfr2515-76-58 20:53:08Degenerative alterations of the cervical spine with malalignment at C4/C5 as described.Interface, Radiology Results In - 12/02/2020 3:55 PM CDT FULL RESULT:Examination: XR SPINE CERVICAL 2 OR 3 VW, 12/02/2020 3:42 PM.Clinical History: 70-year-old woman with a dysplastic nevus of the trunk.Indication: rheumatoid arthritis, arthritisComparison: NoneTechnique: XR SPINE CERVICAL 2 OR 3 VWFindings: 1. 3 images without flexion or extension.2. Osteoporosis.3. Degenerative disc disease from C4 through C7, greatest at C5/C6 and C6/C7.4. 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 For comparison only. No MD Spencer originated interpretationrequested or available.MD Spencer Pathology Outside Gnwnlvwvgudtib4798-42-31 16:23:00 Test Item Value Reference Range Interpretation Comments Materials Received (test f9vwiGOyPOBucZRoUpVf code = 9973) WYPdPRTda4jqAVKfbNXh ZzEwMzNcZnRuYmpcdWMx FSVpKdKnl4rko702cEYo d2wrWCJjAmY5kZTuUERx vAXdX547HOKiBAxln9pi x3JxNDIssSJcx9Z0RKOW grmkpGr5wLbmX34qb3U5 EkvgS8boGURlFZIhG5Ew NN1lABTzOiq0FZN3LGR2 LNNoFVDfL7BeLM5pLWGy hTCbSPy1x8kkaLwnKAHw HGG3d3abTZberqGlAU3a db1bhEo2a1zrhzWaDRWe VFYswQVVLHQzM7CucErj Pl9jiFz6hKmdRljnOUL8 Sov0ZJ1lae78zqb4pSsx MBVnixkeDvE7EMwbECOy hsypZXg4DIvyIAEhbQbb MFxtYXJncjcyMFxtYXJn yUY4NBPqdHHrZ3WpVRIm CFybAGDgqlx0GeFpYz0z qVDhnIelFWvgl4fhw0zs fHYpYqy0VCIhExUcImpv JDdmy6Yrz9wvXVVsfp1g UYD0oVDcwEuih9R8uBSm XVGhqGHwhpDaPLVtzu93 vLAcbKQkxPNmbl3ixlTi uVBrrLFkYZF4eWDtskZk MIOwoVHvQQZqTR1bxVDr NAOojW1znuniGEVkMbZy vahmSAAekOagkiFzOc4p pDchCUY6JJuzH4gmvP0c ViH8MDlsK9wdnX1rIAr5 FKtpxFU8WPCvoZ5lBU5b rbokp3eaZfMtFN0jeozr v2nyGnIcPV9uwog9r2md KWE0EWrsOLOcJuH5drN6 NDBcaGVhZGVyeTcyMFxm h532MUD9IiIlALWps5Yl E0XcgXkeB21vfXxfC26t ELDulJqgtX9ahHjhvL3t FxMhMlRlCHg6vg17ZKv7 pghhaHakEHv9ymHvRLGj FPU1RUWfkIAwPGPnK2q4 ztEiEOJfTQS6KWRakRNm JEIxJ3u9xyJeITK0WVg5 cnBhZGRmdDNcdHJwYWRk YjBcdHJwYWRkZmIzXHRy yUAhjUAvaOGbqH5wnNqt EBPvyFUzsX0fBQK0PTJh cmgzMjBcdHJoZHJcbHRy gu18JYTshoGjyUXbuBal kUIsPMA7CIAlCZPqXSZt SKP9NLYfHzIcngAbISdf bGJyZHJiXGJyZHJzXGJy QJQ6BVItUsJmhcKkMGtj bGJyZHJsXGJyZHJzXGJy QCA2ONHdTyGlyvMpMArd bGJyZHJyXGJyZHJzXGJy BHZ3ACVdGnBbhzLlQMap bHBhZHQxMFxjbHBhZGZ0 N8eglTOoNNIfICjnrDJx YCQjV8cvcCYoTPwsZHMs cGFkZmwzXGNscGFkYjBc K2kyBABtDiKoK2SzyVi6 MDAwXGNsdmVydGFsdFxj uPClOEB4FXOwZPZxPBOm NKH2TKFpEbAwkxDmCUjz bGJyZHJiXGJyZHJzXGJy VPV6KXNaGpVqnqStGVad bGJyZHJsXGJyZHJzXGJy QBT8CRMjEvMgnhNlSZme bGJyZHJyXGJyZHJzXGJy KPI3RELuPkMyelPgYZev bHBhZHQxMFxjbHBhZGZ0 O3vhwWJaXDChVLtubJRl LKGvL2gybWZxVPciLELe cGFkZmwzXGNscGFkYjBc N3tzCSLrCkPfB4GsaWc5 NjAwXGNsdmVydGFsdFxj bQFpQEY9UYCsBIZnIJHb ZQE1EPAlFmNvbzPyLPbl bGJyZHJiXGJyZHJzXGJy KNI0WAZoTyCameAwXJvr bGJyZHJsXGJyZHJzXGJy AHU5KXSmIhDkkcNoKWtx bGJyZHJyXGJyZHJzXGJy IFA0GWZwOfXiezTnOCsm bHBhZHQxMFxjbHBhZGZ0 N0xzfYVcIJTnJQdjbLBd GVLzX8ellZAdUAxpZEVr cGFkZmwzXGNscGFkYjBc X1imYWZdRfVvD5IpwMm2 YzQeVDThyoAgwZ14Fsfn t9EfZZVmSOM6LVqhDOml bFxwbGFpblxmMVxmczIw SQbqfmwxNWHgMSnvV2vq GlPgOUUjqXqvPLzzq6Yy XGYxXGNmMlxmczIwXGIg NYYrJNAgjQ3jFgcnT8Yz mJ2eTZltCycpX8eeQWMi x3UcvJ3kQMnetIQlhbqj MVxmczIwXGxhbmcxMDMz CFmhB8oaZcEwZJFgkJww FZfxh5DgDJKiJDEiZikw jnFjCOi6bvAfVJNtdDfb vAGaBYkhphSjlYgpo3Ct wbLnsTjcIJZzTFf5pmCc lwumoKl9cPSvmXmwCLGt gBfftZ0oTjTaXfHrHAec bGFpblxmMVxmczIwXGxh igkmMUCkMPqpL2ndWwQn CAAzfRhuDOtqq1SfUYQs SMCiEfvksaLuLARhA88o bGVjdGVkXHBsYWluXGYx XGZzMjBcbGFuZzEwMzNc aGljaFxmMVxkYmNoXGYx PQwpT9eeXrDuZ5PcMCJv SmYelPOoY3qkK6XqsEda YXJkXGludGJsXHNzcGFy KWY6nPWkhxTngKRwcWJd LYHtOIfdXTJ5tNMsnruk dNOinquqFWuytxZ6SRJa YWluXGYxXGZzMjBcbGFu ZzEwMzNcaGljaFxmMVxk DrWjZICiPFmcT9ncUzIo E3ZvMRGnYhWjBxQPBQNq aXZlZFxwbGFpblxmMVxm czIwXGxhbmcxMDMzXGhp Z5hhBnNzKJSbbLaoSYxm p8SuHICoPAKmBrgwmgUp EDd4hpTpZMOwnHmmlL01 Zprijy49WSIed2oqPZLu Y5YlkLGrRCBuhWSoDZvj MDhcdHJwYWRkZmwzXHRy cGFkZHIxMDhcdHJwYWRk ZnIzXHRycGFkZHQwXHRy dXHwWTD5Q4q9dgDfYMOo NRi8deSiHZPdPfXapUNm JCR2APq8XuzcqsY8kYHa U7f5QbyrxpOaXQahhQOi vl55QSQsltTnuYPvtSyf tNRkRJH8GDOdAYPoHNWa JZS6FVQgZvOrnlNzQOnx bGJyZHJiXGJyZHJzXGJy YZS0UPLoCnKekkOiFEvm bGJyZHJsXGJyZHJzXGJy RHJ4BPCzLxRsgvJaWJjb bGJyZHJyXGJyZHJzXGJy VVD3QKVvXnCffdDxYKjl bHBhZHQxMFxjbHBhZGZ0 P2gsqZXlOMCzDVmviYDq BHCvY4jzkCQzJQecOQMy cGFkZmwzXGNscGFkYjBc D2naQWDiLzHvP6UzfKs8 MDAwXGNsdmVydGFsdFxj vSDeCIV1CFJqZLHhFANb GTS5QVCkXuVxflChZWln bGJyZHJiXGJyZHJzXGJy VJE3YLCwNcYrizLyLFog bGJyZHJsXGJyZHJzXGJy MWR9BWOtUjIlzyAbIIpn bGJyZHJyXGJyZHJzXGJy FKZ6HMKvRyPjjvPjRJvi bHBhZHQxMFxjbHBhZGZ0 Z5hvgVDqTDFqCIxawWPw GSCxW2xekAQwQHkfVEPf cGFkZmwzXGNscGFkYjBc W8dpHVMxVuRsK6ObnEr6 NjAwXGNsdmVydGFsdFxj uZJeYWU3UVMqPTDcAPCt WJL7YULgYcCvvsMhIDob bGJyZHJiXGJyZHJzXGJy VGN1QKNjJuHookEkQEgn bGJyZHJsXGJyZHJzXGJy INV6ORWhOtJxuuAxHQmr bGJyZHJyXGJyZHJzXGJy UAH5NROqNwSqqeOcFVtn bHBhZHQxMFxjbHBhZGZ0 V7pcaXVtCDAcDUufmVRx KOGhD8xsyKEiVXljGHGt cGFkZmwzXGNscGFkYjBc D6qmLCCzMlWsG8IpdQj4 LkBhTNOyuwHnjK73Rtjb w5QhQXDcVAG9FMipBYnj bFxwbGFpblxmMFxmczI0 XHBsYWluXGYxXGZzMjBc bGFuZzEwMzNcaGljaFxm HZpoZjZiEPXnEOnoY7lj DyZmU2EcVNUwZkJaVI5e F9IkYA8eRayvYaLdMQPw VTBUJIPoLLDHH2YXWikw AXGKV2NrcCqapZ6vHzXa JqXtFWvwFT5bBKQvY0ym jRPkXQEdGRAnK0wyKvXf gR1zfGsxUFlhYfIbVkWj MFxsdHJjaFxjZWxsXHBh wfMwvC13Tchob9MoQWQm XQI5WMzpGJcvsMqzpBPi ykezWRnkvhS6CKKlCQhf XGYxXGZzMjBcbGFuZzEw MzNcaGljaFxmMVxkYmNo IAMkAUtoR5cjJkGfW0Mg AQDlAxUnZh1jKi5tUTRf XHBsYWluXGYxXGZzMjBc bGFuZzEwMzNcaGljaFxm BXofTuHhLBBdPXnvX2qr NrUjL0CaIKHiWzPopDUn P4fwH4WwqTteNJEnLExm vIWqIUXjjVTlJEU1hQRj qwDarZdfuVcepB9pFkOs ZnMyNFxwbGFpblxmMVxm czIwXGxhbmcxMDMzXGhp Q1mtEiHcYOSmaTcaLVbn p2UkLPZvRBTtKetputLg BIFmIt7pMGDuLJCzFStq XGYxXGZzMjBcbGFuZzEw MzNcaGljaFxmMVxkYmNo TGKvXSvvK3kkNsNnP2Gw GMYjWhAlpNWdH3ymG0Ux dCyfttMpjNqai0wyvKRo JRxmw9OndfTtdIghFVVn XHFsXHBsYWluXGYwXGZz NeLntTduoB6kRrYiAnMw DTcaHO8iIBHlS6aqnOOw BAZpFYQyT4yfNhHyeP1d aFxmMVxmczIwXHBhcn0= Diagnosis (test code = m9hbwCEtTFIztBW5GfPi 34) EXXho5fkc7WkrBFwxMUf NRvylPInvyWnlt55oQF4 rL54RM3cIBIzXjN9HIDi dtS3Spt2YEMiUTZnrWOl K169g5erf8elzjKaqRJ7 fVxwYXJkXHBsYWluXGZz YqZuP7Y4x2jiQKBtSHDq ezcyzWNbS2CfVN9aLhiy MjEsIDEzIFNTLCAwIEJM M3XDPyimAGYMO1JkXAFr aDfgM7CmPNYxnnNpJsT7 LzIwMjEpOlxwYXJccGFy XGxpNzIwXGxpbjcyMCBT r5dpBKQmrJIgQ3gtl5Iw VZX1EKZQKzCRXFfrRSFt YXZlOlxwYXJcbGkyMTYw IIApTXngYFoqmC5nEGZh RHh3wAPpdOfoo8WnVfIt F0ZqhrdaEOnzkcK3x6Ix nzdng7o9zBUjJJ1eyWHy JIJ7qURyd9hgefelwCMg b7VfhKTbfSDgPTBdxAqn cmFsIGFuZCBkZWVwIHRp j1V8CWZtRGhecx0awGXh XGxpMFxmaTBcbGluMFxw PPPfrIa2RvOagHkyUqZt PQYeiY7sINYrF9k7EY5v UWmlrVYnMVpvVCP6AXJB OiBCMSwgMnhzcGVjaWFs OiBHTVMsIEZpdGUpLCBz qQS5RVugrQGjKCaeGdH0 UBplhX45BeOxiTsxTgU1 BVXLc8vbOBdvoGluj3Oj aKQdTMTggkFhAG8zIQys RB76nM0rXFCzdBWjbP7f yGPjzBL9jD2jWDmjaTwu Ygd8AQWby8MtcIp1TNOy cmdhbmlzbXMuXHBhciBC FTYvV8GalT6qWEOedCjt pKRfON0sGJA7BGYwynHd uDHiA6UiTidkCHEgX8Vv PFKeqD4tvzGyUtAbBSKx clxsaTBcZmkwXGxpbjBc cGFyXGxpNzIwXGxpbjcy LMLDd9lxYNOygvBcnuar wuA2vuDIOEwfmIfhGXnt JvZeTNL4c3SaQ4jvqQtc I15IQIZXuFDaUQvyg8qc uwG9JSJfjxiknTXgBtGd ZmktNzIwXGxpbjIxNjAg S6axgoH4rVOnRZI8jVA9 lpP0iXUdNOJyWQGunpPb mVzfxVC3z6GjZMmuJvyi iP7jlUyorwI5xHAnBYXb cCTsfR5yzUAuuhEci5Hn DM8hs07kRjkvGALpNuYl k6yiq5GgSDHmF2Gemsbx RIWdSXDukDIwoNUqK6yg bwxwot4ppXCbXSKzPJKb u71iMS28NEOuGvhmDJEc fNtyAFRwGSynuB7qYSUx jymjqCnoDPxerP81YsDg N2ouavjasAYraKR2jEXz ciBiYWNrICgxeEgmRTog ASUuJHLzzDZ4LWftaWVg JKypZUN1MJteyG6qTAVo AA0JJXFZZ2HAGLeURX3B VyFAUWNSS61RH3PVGKNB GICZPYPHXVGHAQ8UFUQJ FNNZCXMWN7jQOAPQTEAV VJeqIRzMA0WFXHJeIF3Z DK5GMSBxC6jRZ2pGF0cM IEFUWVBJQSBPRiBNRUxB Zp0DIHPXKiEaYBK4HsBz IFwnOTNEWVNQTEFTVElD CYD2GjCkPQpzPNXyPYaQ FTawVkROVFGDUZIdC4Fz JIJRTH0HKZCCFIXTBBJu RURHRVMgQVBQRUFSIEZS RUUuXHBhclxsaTBcbGlu KSreGJIafSz5ItLnpYhk GtTpPTZbyY8mNA4wLLAh YWNrICgyeEgmRTogRTEs CUP8LCeAAfAAWMFAEZjd IHNoYXZlOlxwYXJcbGkx STMrVDzdwqU9ZBTmLTJA JZ5KBDNyOMaKChRWQBWU IKENNKIEIfKFM8dCEWZM UFJFQURJTkcgVFlQRVxw SKYcX6iLSikiFMXSHIr9 VIkLIFKaviBHCoVMHE1Z WCYTTEKTLnJKEptwYN7r NSBNTVxwYXIgUkFESUFM DIaDA20fDQONZ6MGT0AN OZYbOAbSO7nYQGBMCZSE EWdxABUVL7DASZjwqX3m WWKNPdGYF3LSWRaRVY5T SgwVWE3BEpqmJ3GNG6BA THUPQNLQUlDEI3QvTOAH BaSAMyuSSGggkF1fLC5G OC6KXQEcUfkSNMVPEw5q cLeloGNwtqAtNZ7av0He HAYtfJBfIbE5GCabvJ3c RKZFA3ELFGBER074EX9R VCBJREVOVElGSUVEXGxp adUjXzXCWjNKQ1pBBhaf WKBRD4TTQBefCt4EBRbw nWXbKOHBQ7DXJVGJSUsD EyOZGY9HNjUXV8YmOAAK EdBFNpcBCObkfU5gNKEA DszFXKYWQDfpCH1GUKJQ S779CY5SRSQSHCDWMNnJ ONGVPEduusSjZYjCSp8Y X21FXMYfC3RPKMhHSZMG S9eOWqOJE5AzDFZTRlNI EgbFLOgfqW0pRJDMDO7J LUlORklMVFJBVElORyBM CA6QKD9XGIMXQfhfWy7R LUJSSVNLXGxpbmUgQVNT K1FNZTATPJKFNQfNCo3W SBBPLfFCEOEZZaluNk1L AUBQOJGAVI5HBZtzeS5k QDYEALQXJSdPEK9HTSXU YG0WA3gIGmSQXPpJXXXD YJ4DKYTWUnFrJn0QCJqe RpVAK8sBIBnyjmUoHHrZ D4WARAGPS8MQAfMYQXiI Hx0SHMQLQpIRSMNTCZIC RVNFTlQgQVQgUEVSSVBI RVJBTCBUSVNTVUUgRURH EACpXP0FOF2YPDTYK00I MTMSM0SDGJwsTONKD5XL DTNTHLEMXGHAZIDTH3BD SHQZXQyHN9bkUSQwW3Lh XDEivK5mahCtRgZgQHNk axhpBTLtEWovSCZ3YGlu nB2bOKZpASP6IeXxQRWx cn0= Comment (test code = [id number] 9835) ELXxt2kog3YjaJRfxMOl PFmloYUfmtVbsa22qTV8 gE02SG1tRDPnMlW9KXMt ngU5Pir4TJDwLIJjpLAe K511m1unb9meovYjwWC8 fVxwYXJkXHBsYWluXGZz WhMoY96ckXHojDYaIF0d BRyvTYD2Dj7zcBXtBHAm rGGwaGChKBQ6QMvdZEyi jCsfLuc7YEXegIyjyKcr lPXrOX32lCPlf4AwDCEb gIY0MYItLU1iDM71U14p ZFZ1GHRiEVvga3ZpOO1j f07iHeJCxCOqT03IISJ8 UEhbMFojXE8pO1R3qTSv SUEjprZ7kuCmnZm6f9Zi jHZrwT9cCNdvj7TkWD0d f50sDeLQYkVdaoUusLGl iDHrPKIxzrRjkEZ0pO8m RHqceIdawmVdwJn8ceJh WyNvoDBzv2Hzx7seR1kf Z3AygCHlPZLwpVDakqDx KMOmDFD0BzkhMDDvgAKl ECPgiU0japSnKjYhOVJu dmlldyBvZiBzdWJtaXR0 ZNNsYUMvvE2nWDD7CFjq RNjlUnWisxRew73lzSMg bnQgcHJvbGlmZXJhdGlv biBvZiBhdHlwaWNhbCBt GJofke1izWTufmDrtoA7 aGUgZXBpZGVybWlzIHdp dGggcGFnZXRvaWQgbWln dxS9tE3qIKPdDJAvUDWt IGNlbGxzIGluIHRoZSBw YXBpbGxhcnkgZGVybWlz AXZuyGUbj4M6qL0rVHMp HZPtAx96DLUywD4buP3p vy5nwPOlzS== Disclaimer (test code = [id number] 9844) WAZzLVDhl2ruGVDlxARi ZzEwMzNcZnRuYmpcdWMx OWImUjIyr8cbo161eRRv d2mrIBDxBmD4hSFmGCKu qTIdC043CYIjOMwzi6cj h9BnANMbzRKnj2W7DNJR awuwpCr2cJfgF42dw8H0 VfouC1awJUTuGFVnY7Do PB6nXLTpCop5IGD7SAC9 DETzHJUaA5UkRJ6nMHNj eAHrGMg9y9mmvLlaKNRq XYB5w9xbIInmznAuDZ7v bk6utGp3k1kzsaKbJLIw ETOegMUSKFJtU0JgpGxv Rr1vtFn8sOttUkcuGFP3 Nyt5IL2ryj39nnz5bBhk DOLgxqibPxP0OAzyBALu hkdfHRx7TWdkTWGheLE4 DUQsfRTbC9AxYHLdHV7c wmo0QBJ0IYvkIIKtXqB4 NDBcaGVhZGVyeTcyMFxm g854NXJ2PfPeOH2sM1Rx h5D4tA4ipRLfXAVzeBIl WwRtLKOisi5nvAJgNOdw a8EtTMY5pjK2yEOfjRSk VWGpZF95Ewabo1WdHfle BIA5RDSbeqBeg8Nff3rm UjWrvwAgK5ksU5WpNRPq QENpDGSyUsBcziNbj8Xl g2VjxBAsyBy0o4dwXFCo FENagTxqb1xlZBE1RMKf O7R9sCVrz2ofTJrrIQUs sLD2asU0KBOoqWHpC3Fj lN1dFUSgYO0qjmx3m5pm AXM6NWquVZOhNoW8lgF8 NDBcaGVhZGVyeTcyMFxm e236ODH6BxLoYGQho4Is Q4MxrKswS79puEirX14y JRTlvScuaX2eyKmffM3x ZjBcZnMyNFxxbFxwbGFp tgbuKGukqvE0HTteuyog PRZaNYevP0eaWtBpIFEt tGfxHKtnv5AmINXfMPIo LodllaQ1YXALl30wWGCm q2PhTNRelR4ajJFnBXto qpXbnJH0DQfoaxFpQvWd ztIzFGIpwA3xDUUlCL7r VSKwopSavz0ldcWtYZVd LAFyC4WyoapakCcbmvUa ODRhsn7pjkQsGFH3NMLE ZE9LJVIjMBDca72dZQVr bVcuyR7vrVIejdIxALYe p6CpxB0soZSULABnA6jo WJ4zJFrio1HusQJzdYAm hXK2XNKor0ZrFlBpyyHj jZXuoZVcO8PrdVbgU4ok UHZmNZDyocLduFTla0Ji JTUpnNA6sDPxLY0SFfJE y32nPQQeSAOGpjVzTLHx zOznuLO7sgC0aG7gHtBY ZiBhcHBsaWNhYmxlLCBj f232mr2ghdI0VYOrKIKk kcloc2SrVDYxMXVkiS13 GNBfXJLuhd8fmakulTFh pbOyY3Iixol8eB1bYHDb YWluXGYxXGZzMjJcbGFu ZzEwMzNcaGljaFxmMVxk DkDlJMScKEnjI9oiOuRb ZnMyMlxwYXJ9 MD YoungRjagqsspFKEH-SmH-3 (COVID-19) RNA [Presence] in Respiratory specimen by ASTER with probe [id number] 15:48:48 Test Item Value Reference Range Interpretation Comments SARS-CoV-2 (COVID-19) RNA Not detected Not-Detected [Presence] in Respiratory specimen by ASTER with probe detection (test code = 20280-6) SARS-CoV-2 (COVID-19) RNA [Presence] in Respiratory specimen by ASTER with probe [id number] 21:40:55 Test Item Value Reference Range Interpretation Comments SARS-CoV-2 (COVID-19) RNA Not detected Not-Detected [Presence] in Respiratory specimen by ASTER with probe detection (test code = 54523-9) BASIC METABOLIC [id number] 05:14:00 Test Item Value Reference Range Interpretation Comments SODIUM (BEAKER) 141 meq/L 136-145 (test code = 381) POTASSIUM (BEAKER) 4.2 meq/L 3.5-5.1 (test code = 379) CHLORIDE (BEAKER) 109 meq/L 98-107 H (test code = 382) CO2 (BEAKER) (test 26 meq/L 22-29 code = 355) BLOOD UREA NITROGEN 14 mg/dL 7-21 (BEAKER) (test code = 354) CREATININE (BEAKER) 0.80 mg/dL 0.57-1.25 (test code = 358) GLUCOSE RANDOM 108 mg/dL 70-105 H (BEAKER) (test code = 652) CALCIUM (BEAKER) 9.0 mg/dL 8.4-10.2 (test code = 697) EGFR (BEAKER) (test 72 mL/min/1.73 ESTIMA MARTA GFR IS code = 1092) sq m NOT ACCURATE CREATININE CLEARANCE IN PREDICTING GLOMERULAR FILTRATION RATE . ESTIMATED GFR I S NOT APPLICABLE FOR DIALYSIS PATIEN TS. [id number] 12:05:00 Test Item Value Reference Range Interpretation Comments RPR SCREEN (BEAKER) (test code = Nonreactive Nonreactive 420) HEMOGLOBIN [id number] 11:10:00 Test Item Value Reference Range Interpretation Comments HEMOGLOBIN A1C (BEAKER) (test code = 5.1 % 4.3-6.1 368) CREATINE KINASE (CK), TOTAL AND [id number] 10:42:00 Test Item Value Reference Range Interpretation Comments CREATINE KINASE TOTAL (BEAKER) 38 U/L 29-200 (test code = 380) CREATINE KINASE-MB (BEAKER) (test 0.8 ng/mL 0.0-6.6 code = 750) CREATINE KINASE-MB INDEX (BEAKER) 2.1 % (test code = 395) Effective 2014: CK-MB Reference Range ChangeNew: 0.0-6.6 Previous: 0.0-4.9CK-MB Reference Range:<6.7 Normal6.7-10.0 Borderline>10.0 AbnormalTROPONIN [id number] 10:42:00 Test Item Value Reference Range Interpretation Comments TROPONIN I (BEAKER) (test code = 0.01 ng/mL 0.00-0.03 397) Effective 2014: Reference Range ChangeNew: 0.00-0.03 Previous [...] neurological disease, and persistent tachyarrhythmia.VITAMIN B12 AND [id number] 07:06:00 Test Item Value Reference Range Interpretation Comments VITAMIN B12 (BEAKER) (test code = > pg/mL 213-816 H 774) FOLATE (BEAKER) (test code = 362) 15.6 ng/mL >=7.0 Effective 2014: Folate Reference Range ChangeNew: >=7.0 Previous: >=5.4FastingTSH/FREE T4 IF [id number] 07:03:00 Test Item Value Reference Range Interpretation Comments THYROID STIMULATING HORMONE 2.28 uIU/mL 0.35-4.94 (BEAKER) (test code = 772) [id number] 05:47:00 Test Item Value Reference Range Interpretation Comments HOMOCYSTEINE (BEAKER) (test code = 5.4 umol/L 5.1-15.4 642) FastingBASIC METABOLIC [id number] 05:43:00 Test Item Value Reference Range Interpretation Comments SODIUM (BEAKER) 142 meq/L 136-145 (test code = 381) POTASSIUM (BEAKER) 4.0 meq/L 3.5-5.1 (test code = 379) CHLORIDE (BEAKER) 111 meq/L 98-107 H (test code = 382) CO2 (BEAKER) (test 22 meq/L 22-29 code = 355) BLOOD UREA NITROGEN 13 mg/dL 7-21 (BEAKER) (test code = 354) CREATININE (BEAKER) 0.75 mg/dL 0.57-1.25 (test code = 358) GLUCOSE RANDOM 83 mg/dL 70-105 (BEAKER) (test code = 652) CALCIUM (BEAKER) 8.7 mg/dL 8.4-10.2 (test code = 697) EGFR (BEAKER) (test 78 mL/min/1.73 ESTIMA MARTA GFR IS code = 1092) sq m NOT ACCURATE CREATININE CLEARANCE IN PREDICTING GLOMERULAR FILTRATION RATE . ESTIMATED GFR I S NOT APPLICABLE FOR DIALYSIS PATIEN TS. FastingLIPID [id number] 05:43:00 Test Item Value Reference Range Interpretation Comments TRIGLYCERIDES (BEAKER) (test code = 509 mg/dL 540) CHOLESTEROL (BEAKER) (test code = 333 mg/dL 631) HDL CHOLESTEROL (BEAKER) (test code 41 mg/dL = 976) Calculated LDL not valid if triglyceride >400 mg/dLTriglyceride Reference Range: Low Risk <150 Borderline 150-199 High Risk 200-499 Very High Risk >=500Cholesterol Reference Range: Low Risk <200 Borderline 200-239 High Risk >240HDL Cholesterol Reference Range: Low Risk >=60 High Risk <40LDL Cholesterol ReferenceRange: Optimal <100 Near Optimal 100-129 Borderline 130-159 High 160-189 Very High >=190 FastingCREATINE KINASE (CK), TOTAL AND [id number] 00:59:00 Test Item Value Reference Range Interpretation Comments CREATINE KINASE TOTAL (BEAKER) 48 U/L 29-200 (test code = 380) CREATINE KINASE-MB (BEAKER) (test 0.9 ng/mL 0.0-6.6 code = 750) CREATINE KINASE-MB INDEX (BEAKER) 1.9 % (test code = 395) Effective 2014: CK-MB Reference Range ChangeNew: 0.0-6.6 Previous: 0.0-4.9CK-MB Reference Range:<6.7 Normal6.7-10.0 Borderline>10.0 AbnormalTROPONIN [id number] 00:59:00 Test Item Value Reference Range Interpretation Comments TROPONIN I (BEAKER) (test code = 397) < ng/mL 0.00-0.03 Effective 2014: Reference Range [...] and persistent tachyarrhythmia.CREATINE KINASE (CK), TOTAL AND MB 2016-12-25 20:28:00 Test Item Value Reference Range Interpretation Comments CREATINE KINASE TOTAL (BEAKER) 52 U/L 29-200 (test code = 380) CREATINE KINASE-MB (BEAKER) (test 1.2 ng/mL 0.0-6.6 code = 750) CREATINE KINASE-MB INDEX (BEAKER) 2.3 % (test code = 395) Effective 2014: CK-MB Reference Range ChangeNew: 0.0-6.6 Previous: 0.0-4.9CK-MB Reference Range:<6.7 Normal6.7-10.0 Borderline>10.0 AbnormalTROPONIN [id number] 20:28:00 Test Item Value Reference Range Interpretation Comments TROPONIN I (BEAKER) (test code = 397) < ng/mL 0.00-0.03 Effective 2014: Reference Range [...] acute neurological disease, and persistent tachyarrhythmia.BASIC METABOLIC [id number] 20:22:00 Test Item Value Reference Range Interpretation Comments SODIUM (BEAKER) 143 meq/L 136-145 (test code = 381) POTASSIUM (BEAKER) 3.1 meq/L 3.5-5.1 L (test code = 379) CHLORIDE (BEAKER) 108 meq/L 98-107 H (test code = 382) CO2 (BEAKER) (test 25 meq/L 22-29 code = 355) BLOOD UREA NITROGEN 15 mg/dL 7-21 (BEAKER) (test code = 354) CREATININE (BEAKER) 0.76 mg/dL 0.57-1.25 (test code = 358) GLUCOSE RANDOM 161 mg/dL 70-105 H (BEAKER) (test code = 652) CALCIUM (BEAKER) 8.7 mg/dL 8.4-10.2 (test code = 697) EGFR (BEAKER) (test 77 mL/min/1.73 ESTIMA MARTA GFR IS code = 1092) sq m NOT ACCURATE CREATININE CLEARANCE IN PREDICTING GLOMERULAR FILTRATION RATE . ESTIMATED GFR I S NOT APPLICABLE FOR DIALYSIS PATIEN TS. CBC W/PLT COUNT & AUTO [id number] 20:02:00 Test Item Value Reference Range Interpretation Comments WHITE BLOOD CELL COUNT (BEAKER) 7.6 K/ L 4.0-10.0 (test code = 775) RED BLOOD CELL COUNT (BEAKER) 4.73 M/ L 4.00-5.00 (test code = 761) HEMOGLOBIN (BEAKER) (test code = 15.1 GM/DL 12.0-15.0 H 410) HEMATOCRIT (BEAKER) (test code = 44.6 % 36.0-45.0 411) MEAN CORPUSCULAR VOLUME (BEAKER) 94.2 fL 82.0-99.0 (test code = 753) MEAN CORPUSCULAR HEMOGLOBIN 31.9 pg 27.0-33.0 (BEAKER) (test code = 751) MEAN CORPUSCULAR HEMOGLOBIN CONC 33.9 GM/DL 32.0-36.0 (BEAKER) (test code = 752) RED CELL DISTRIBUTION WIDTH 13.8 % 10.3-14.2 (BEAKER) (test code = 412) PLATELET COUNT (BEAKER) (test 117 K/CU MM 150-430 L code = 756) MEAN PLATELET VOLUME (BEAKER) 11.6 fL 6.5-10.5 H (test code = 754) NUCLEATED RED BLOOD CELLS 0 /100 WBC 0-0 (BEAKER) (test code = 413) NEUTROPHILS RELATIVE PERCENT 69 % (BEAKER) (test code = 429) LYMPHOCYTES RELATIVE PERCENT 20 % (BEAKER) (test code = 430) MONOCYTES RELATIVE PERCENT 8 % (BEAKER) (test code = 431) EOSINOPHILS RELATIVE PERCENT 2 % (BEAKER) (test code = 432) BASOPHILS RELATIVE PERCENT 0 % (BEAKER) (test code = 437) NEUTROPHILS ABSOLUTE COUNT 5.26 K/ L 1.80-8.00 (BEAKER) (test code = 670) LYMPHOCYTES ABSOLUTE COUNT 1.52 K/ L 1.48-4.50 (BEAKER) (test code = 414) MONOCYTES ABSOLUTE COUNT (BEAKER) 0.62 K/ L 0.00-1.30 (test code = 415) EOSINOPHILS ABSOLUTE COUNT 0.17 K/ L 0.00-0.50 (BEAKER) (test code = 416) BASOPHILS ABSOLUTE COUNT (BEAKER) 0.03 K/ L 0.00-0.20 (test code = 417) 0.92CJKFRKLCIR1532-30-00 06:35:001.3[facility] LtqcwquHTAGQWKSDX1204-50-96 06:35:005.1[facility] JnrzrnqMVEJOFXZIE1530-67-27 06:35:001[facility] [place] ZLYQSAJONH6902-04-57 06:35:000.0[facility] LrbozlfDRPCLSTQVX4322-74-02 06:35:00 Normal (04/03/14 1:35 AM)[facility] CkgoebvWHAVFDQNWX1175-46-23 06:35:001.0[facility] YpndinhTYOFYSRRXJ7455-00-31 06:35:000.4[facility] MgtlbvpQDRENEOENZ1643-32-83 06:35:0011.0[facility] HdfybktQUJYZAWCTP3351-54-73 06:35:003.0[facility] [place] BUYHUZZBVV4026-03-39 06:35:002.0[facility] SqhobxvZHZTTUCJMT0945-32-74 06:35:002.0 [facility] ZbtamhrMXISDAKTUI2307-19-99 06:35:0039.0[facility]annHEMATOLOGY 2014-04-03 06:35:0042.0[facility] HermannCHEM IQKDY2975-98-89 06:35:0080[facility]annCHEM VUTLN3939-59-80 06:35:0014[facility]annCHEM BXAEL1868-88-45 06:35:000.8[facility]annCHEM GAFDB9362-14-22 06:35:94497Kundbqjx HermannCHEM ZWDEH7397-66-15 06:35:0032[facility]annCHEM QRRQC6352-54-57 06:35:0012.4 [facility]annCHEM FANUY0647-60-58 06:35:009.3[facility]annCHEM PANEL 2014-04-03 06:35:79274Vctneqgn HermannCHEM ETCID9580-76-61 06:35:003.4[facility]annCHEM GWFAM9497-00-80 06:35:0099[facility]annCHEM FWJJW6385-69-99 06:35:003.4[facility]annCHEM QGDEH6151-11-12 06:35:002.1[facility] [place] KUYDAUWEAJ9155-12-24 06:35:0012.4[facility] YnmucmqXKQMVYEZCO8213-64-73 06:35:00 193[facility] NcbeuioMVBTNVBCBZ2736-75-79 06:35:0014.3[facility]annHEMATOLOGY 2014-04-03 06:35:0033.6[facility] LvkqazoGGWVBLYJXH5529-15-67 06:35:00 Test Item Value Reference Range Interpretation Comments MCH (test code = MCH) 31.6 pg 27.0-31.0 [facility] DigurqvGSMGVCGDXS0334-87-23 06:35:0093.9[facility]annHEMATOLOGY 2014-04-03 06:35:0038.7[facility] MevasfwBTPCCLHUOZ2572-90-45 06:35:0013.0[facility] LejbjcxIJBYSNSGZW7032-44-91 06:35:004.12[facility] VhhidcqIQCBRFAQXY6548-60-28 06:35:0011.9[facility] QyfeuosKYHTLGXZBO3666-60-25 06:35:00Slight (04/03/14 1:35 AM)[facility] AcgiyjyDYVEPJUVMV8288-54-09 06:35:001+ *ABN*(04/03/14 1:35 AM) [facility] BwxlmqvKXKNLOLYWO8887-88-46 06:35:00Slight *ABN*(04/03/14 1:35 AM) [facility] YsceesjQBCQGTHZTR8336-62-82 06:35:00Moderate *ABN*(04/03/14 1:35 AM) [facility] DparsjyIABZTCGPTQ0459-59-79 06:35:00Slight *ABN*(04/03/14 1:35 AM) [facility] BwsixwrDCXPFPEBHV7118-82-77 06:35:004.6[facility] HermannCHEM PANEL 2014-04-02 07:11:001.8[facility] HermannCHEM JWVJA4431-13-77 07:11:004.1[facility] SzwzlqvNEKRDSHKHXWC3472-87-94 07:11:0012.1[facility] XqxzszfBWTFEHZTCUGA9664-53-35 07:11:0099[facility] XlrqhgaYBWBTLHSYWTB9073-16-06 07:11:0018[facility] FMOLFJYGFRSK5473-22-89 07:11:000.6[facility] JbltfylJCWFYJBIQMJK9302-98-84 07:11:0098[facility] VwuzyciRQIAATNNUFVG6710-95-59 07:11:55014Rloiouem [place] DOWAUDZFXPYR1881-54-51 07:11:008.6[facility] TxemubzPKRBEWEYQTIR6173-43-69 07:11:0033[facility] RbhyccmHDGLQBDIHXTT0350-86-81 07:11:0097[facility] GKBECZBRCEVF2427-46-46 07:11:003.1[facility] GykeugfIVKOVDOJPW5620-89-46 07:11:00 4.0[facility] WckcxmoPYWTVVMGBC7091-14-99 07:11:0038.0[facility] HermannHEMATOLOGY 2014-04-02 07:11:0021.0[facility] TaxaeuzYLABBTHXKM5319-68-38 07:11:002.0[facility] CarrefhLFSRAKAAIA4019-59-17 07:11:0033.0[facility] VayovnmEDRQZTOURL0144-89-51 07:11:00Moderate *ABN*(04/02/14 2:11 AM)[facility] JwtihtsVWMQUYGJDZ3297-25-74 07:11:002.0[facility] EcftktqPZBIMLSZRT3561-89-98 07:11:000.0[facility] IEYCZYLCCP9155-90-37 07:11:003.7[facility] FvgemwwOGKUIIVWVW1031-48-12 07:11:004.0 [facility] FhwimhkBEJUSQZRBQ7256-31-78 07:11:000.4[facility]annHEMATOLOGY 2014-04-02 07:11:002.2[facility] UgwmypoQHGCBXJLAT2665-12-80 07:11:00 Test Item Value Reference Range Interpretation Comments MCH (test code = MCH) 32.2 pg 27.0-31.0 [facility] PzynbqjELZAZENLYU3462-49-49 07:11:0034.3[facility] HermannHEMATOLOGY 2014-04-02 07:11:0093.9[facility] KoagilpKWPTJOPRMM8840-63-53 07:11:0038.3[facility] ZacdpatCYYXKRXGMX0041-43-00 07:11:0014.2[facility] IeysyteWTMCSUVCGI6032-58-25 07:11:0013.1[facility] AivnixbQUGLAYFQRN0574-03-65 07:11:004.08[facility] [place] NKVJLHWBGU2175-09-13 07:11:0010.6[facility] HkmppfbOAEJAILFMN0976-90-31 07:11:00 12.3[facility] FobwwehHDTIECHRVM7200-47-80 07:11:07420Ohwkenmp HermannHEMATOLOGY 2014-04-02 07:11:0038[facility] ThprhysKMMZZQ5993-08-96 07:11:005.59[facility] KhttxbbOBTUAN1394-45-42 07:11:0057[facility] NvdaitfEQNMMU9412-62-41 07:11:0076 [facility] UpzexgbERXHLU3020-61-49 07:11:40054Bwlxocvs EkwagbeHBVCNZ1841-86-05 07:11:0029[facility] KthggdxTJKPIN8705-07-59 07:11:83346Pfticxrm HermannCARDIAC YIJGOGF6551-12-95 14:17:00<0.02[facility] HermannCARDIAC PAGVZTH3704-43-66 14:17:0061[facility]annCHEM KQGPT8239-85-15 10:43:3599[facility] HermannCHEM NHSYF8062-06-80 10:43:3580[facility] HermannCHEM VUAOS8504-05-75 10:43:01741 [facility]annCHEM NWBZS3657-14-03 10:43:350.6[facility] HermannCHEM PANEL 2014-04-01 10:43:3511.7[facility]annCHEM IYEQF8344-14-04 10:43:359.6[facility]annCHEM YNTCI3764-61-20 10:43:353.7[facility]annCHEM MTQNB2719-95-12 10:43:3533[facility]annCHEM QMQTX3055-69-62 10:43:3598[facility] HermannCHEM PUALD3113-75-10 10:43:3517[facility]annURINE AND FPVIC8502-56-15 10:40:008 [facility] AND QMHKP7586-71-72 10:40:008[facility]ann[facility] AND XZNQU0465-34-60 10:40:00Yellow *NA*(04/01/14 5:40 AM)[facility] PDRMM2191-37-30 10:40:00Negative (04/01/14 5:40 AM)[facility] PHIVV7738-47-23 10:40:00Negative (04/01/14 5:40 AM)[facility] RSNVP8925-44-58 10:40:00Negative (04/01/14 5:40 AM)[facility] BGEGR5517-51-47 10:40:00Negative *NA*(04/01/14 5:40 AM)[facility] GEGUR7484-72-24 10:40:005.5[facility] AND YDYBQ0715-85-42 10:40:00 Clear (04/01/14 5:40 AM)[facility] NCKYO4905-25-46 10:40:001.047 [facility]annSPECIAL ARQHVOFDL4515-17-90 01:00:275.8[facility] JZPPVMZGQM4176-25-81 01:00:18937Xpiimhsc AjofnjlNNSILZTCBB9445-00-74 01:00:21 12.8[facility] IerhdjeXIUQNLEHJU1682-31-25 01:00:2115.5[facility] HermannHEMATOLOGY 2014-04-01 01:00:2134.0[facility] QxlhcdmYYHWURXUVJ7347-85-18 01:00:21 Test Item Value Reference Range Interpretation Comments MCH (test code = MCH) 31.8 pg 27.0-31.0 [facility] FxixljwCLVQTCPGWV5332-19-09 01:00:214.07[facility] HermannHEMATOLOGY 2014-04-01 01:00:2113.0[facility] HxtelivVFHMNBCVRN2811-05-99 01:00:2138.1[facility] DtlobgyISAUMQOJYX0382-74-56 01:00:2193.6[facility] AhcooolYPEOJRMOYM9583-80-41 01:00:217.4[facility] QqhkgzkEJGUUTIRXV7311-33-85 01:00:21Moderate *ABN*(03/31/14 8:00 PM)[facility] SthhwlsWAFZLKZIXZ8200-01-60 01:00:21Slight *ABN*(03/31/14 8:00 PM)[facility] TmwgwgwNZSKECGWNM6430-97-86 01:00:21Slight (03/31/14 8:00 PM)[facility] NvwqhskHZMVCMVINY8441-25-24 01:00:21Slight *ABN*(03/31/14 8:00 PM)[facility] SwkvdljCWYILQGATT2072-36-03 01:00:210.1[facility] HxclfpbPOJNTLXHCE1385-06-82 01:00:210.2[facility] JveszoeRHGEAGVAVL9858-22-58 01:00:213.0[facility] EVZYSYUWAY7312-97-87 01:00:211.1[facility] IgchmykFOSGPMKUFU8439-77-93 01:00:21 Normal (03/31/14 8:00 PM)[facility] ZbfqsfuOBMPEBGXIA0298-95-89 01:00:210.7[facility] XkxsdtlVRIDVGKCNE0848-14-91 01:00:213.0[facility] WbbnjduTZNEFRESNG9015-56-37 01:00:213.0[facility] XzdebtqBHHIXFZLZP6954-78-71 01:00:2140.4[facility] [place] AEETIEBOMV8535-52-75 01:00:2115.2[facility] BoueaqyDWCAMZFBKM6022-99-60 01:00:21 40.7[facility] HermannCARDIAC RSXQCIN0745-15-04 01:00:00<0.02[facility] CARDIAC BZGKENV5489-41-42 01:00:0090[facility] HermannCARDIAC CUDVGCN8212-50-28 01:00:002.2[facility] HermannCARDIAC KHAOTVT7282-55-64 01:00:002.0[facility] CHEM NTGCN8184-37-77 01:00:0024[facility] HermannCHEM MTURF2961-73-79 01:00:002.4 [facility]annCHEM MLODI3742-36-04 01:00:005.3[facility] HermannCHEM PANEL 2014-04-01 01:00:002.9[facility] HermannCHEM EDRTY8104-90-41 01:00:0057[facility] HermannCHEM GKRHG9305-02-27 01:00:000.8[facility] HermannCHEM OEIRN1800-65-83 01:00:0059[facility] HermannCHEM XGFKO8178-88-31 01:00:0058[facility] HermannCHEM DFRKV9853-37-70 01:00:000.6[facility] CjzxbpsQKHFBQ5762-45-30 01:00:0077[facility] NxceyojXGZFVR7833-03-59 01:00:0053[facility] LsvmpxjJKEZAJ7051-55-13 01:00:006.20 [facility] VlnwlbsSYHGDZ9158-85-39 01:00:0025[facility] EsaziexGZZOXI2912-73-59 01:00:42147Nqrltdkh JesqaqbUPNVYS0886-52-14 01:00:88531Aitdmzcd Brendan
[2021-03-06 15:18] LABS: Absolute Lymphocytes (CBC) 3.4 K/uL (0.7-4.9); Basophils % 0.8 % (0-1.3); Hematocrit 40.9 % (36.0-45.0); Lymphocytes % 24.1 % (15.3-44.8); MPV 11.9 fL (7.6-11.3); RBC Red Blood Cell Count 4.59 M/uL (3.86-4.86)
[2021-03-06] MEDS ORDERED: NA CHLORIDE 0.9% 1,000 ML ONE (15:20)
--- NOTE | 2021-03-06 15:29 | RAD REPORT ---
EXAM DESCRIPTION: CT - Abdomen Pelvis Wo Contrast - 03/06/2021 3:20 pm CLINICAL HISTORY: Abdominal pain. Fever;Abd pain COMPARISON: Abdomen Pelvis W/Wo Contrast dated 01/19/2021; CT ABD PELVIS W WO CONTRAST dated 01/06/20 11; CT ABD PELVIS W WO CONTRAST dated 12/24/2009 TECHNIQUE: CT imaging of the abdomen and pelvis was performed without contrast. Solid organ, bowel a nd vascular assessment is limited due to lack of IV and oral contrast. All CT scans are performed using dose optimization technique as appropriate and may include automated exposure control or mA/KV adjustment according to patient size. FINDINGS: Linear opacities within the lung bases favored to represent scarring or subsegmental atele ctasis. Coronary artery calcifications. Cardiomegaly. No focal liver lesions are identified. The gallbladder is within normal limits. The pancreas is withi n normal limits. No adrenal lesions are seen. Bilateral renal calculi. A left ureteral stent is in pl mariaa. There is a stone measuring 6 millimeters along the left mid ureter. The bladder wall is mildly t hickened. Hysterectomy. Atherosclerosis without aneurysm. Small fat containing umbilical hernia. Dive rticulosis without diverticulitis. No bowel obstruction. No acute fractures. IMPRESSION: Interval placement of a left ureteral stent. No hydronephrosis. A stone is still present in the left proximal ureter. Increased bladder wall thickening which is nonspecific but may indicate cystitis. Correlate with urinalysis. No other acute findings are seen. A limited non-contrast examination was performed as detailed.
--- NOTE | 2021-03-06 15:39 | ER ---
Nurse's Notes [facility] Name: Guerita Long Age: 70 yrs Sex: Female : 1950 Arrival Date: 03/06/2021 Time: 13:00 Bed 3 Private MD: Diagnosis: Fever, unspecified;UTI/ Urinary tract infection, site not specified Presentation: 03/06 13:02 Chief complaint: Patient states: Sweaty and not feeling well today. Had a stent placed ll1 Monday for kidney stones by Dr. Huddleston. Coronavirus screen: Client denies travel out of the [place] in the last 14 days. Ebola Screen: Patient denies travel to an Ebola-affected area in the 21 days before illness onset. Initial Sepsis Screen: Does the patient meet any 2 criteria? No. Patient's initial sepsis screen is negative. Does the patient have a suspected source of infection? Yes: Dysuria/Frequency/Urgency/UTI. Risk Assessment: Do you want to hurt yourself or someone else? Patient reports no desire to harm self or others. Onset of symptoms was March 06, 2021. 13:02 Method Of Arrival: Wheelchair ll1 13:02 Acuity: RICK 3 ll1 Historical: - Allergies: 13:01 PENICILLINS; ll1 13:01 loperamide; ll1 - PMHx: 13:01 CVA; ll1 13:07 Hypertensive disorder; high cholesterol; ll1 - PSHx: 13:07 kidney stent; ll1 - Immunization history:: Flu vaccine is up to date. Client reports receiving the 2nd dose of the Covid vaccine. - Social history:: Smoking status: Patient denies any tobacco usage or history of. Screenin:52 Abuse screen: Denies threats or abuse. Nutritional screening: No deficits noted. tw2 Tuberculosis screening: No symptoms or risk factors identified. Fall Risk Secondary diagnosis (15 points) impaired mobility. Assessment: 14:28 General: Appears in no apparent distress. Behavior is calm, cooperative, appropriate tw2 for age. Pain: Denies pain. Neuro: Level of Consciousness is awake, alert, obeys commands, Oriented to person, place, time, situation. Cardiovascular: Patient's skin is warm and dry. Respiratory: Airway is patent Respiratory effort is even, unlabored, Respiratory pattern is regular, agonal. GI: No signs and/or symptoms were reported involving the gastrointestinal system. Abdomen is flat. : Reports urinary frequency. EENT: No signs and/or symptoms were reported regarding the EENT system. Derm: No signs and/or symptoms reported regarding the dermatologic system. Skin is fragile, is thin, with poor turgor. Musculoskeletal: Range of motion: intact in all extremities. 15:57 Reassessment: Patient appears in no apparent distress at this time. No changes from tw2 previously documented assessment. Patient and/or family updated on plan of care and expected duration. Pain level reassessed. Patient is alert, oriented x 3, equal unlabored respirations, skin warm/dry/pink. 17:24 Reassessment: Patient appears in no apparent distress at this time. Patient and/or hb family updated on plan of care and expected duration. Pain level reassessed. Patient is alert, oriented x 3, equal unlabored respirations, skin warm/dry/pink. 18:36 Reassessment: Patient appears in no apparent distress at this time. No changes from tw2 previously documented assessment. Patient and/or family updated on plan of care and expected duration. Pain level reassessed. Patient is alert, oriented x 3, equal unlabored respirations, skin warm/dry/pink. 19:00 Reassessment: Patient appears in no apparent distress at this time. Patient and/or jb4 family updated on plan of care and expected duration. Pain level reassessed. Patient is alert, oriented x 3, equal unlabored respirations, skin warm/dry/pink. 19:44 Reassessment: Patient appears in no apparent distress at this time. Patient and/or jb4 family updated on plan of care and expected duration. Pain level reassessed. Patient is alert, oriented x 3, equal unlabored respirations, skin warm/dry/pink. Report called to JORDEN Lindquist. Vital Signs: 13:02 BP 110 / 79; Pulse 77; Resp 16; Temp 98.3; Pulse Ox 96% ; Weight 54.43 kg; Height 5 ft. ll1 4 in. (162.56 cm); Pain 3/10; 15:57 BP 104 / 68; Pulse 79; Resp 17; Pulse Ox 97% on R/A; tw2 17:24 BP 109 / 67; Pulse 75; Resp 15; Pulse Ox 98% on R/A; tw2 18:36 BP 111 / 66; Pulse 78; Resp 17; Pulse Ox 95% on R/A; tw2 19:30 BP 139 / 83; Pulse 81; Resp 16; Pulse Ox 99% on R/A; jb4 13:02 Body Mass Index 20.60 (54.43 kg, 162.56 cm) ll1 ED Course: 13:00 Patient arrived in ED. ds1 13:01 Arm band placed on. ll1 13:07 Triage completed. ll1 14:27 Placed in gown. Bed in low position. Call light in reach. timber rider on. Pulse ox tw2 on. NIBP on. Warm blanket given. 14:30 Jabier Meade, AURA is PHCP. pm1 14:30 José Segovia MD is Attending Physician. pm1 15:08 Inserted saline lock: 22 gauge in right Blood collected. tw2 15:17 Massiel Freeman RN is Primary Nurse. tw2 15:21 Abdomen In Process Unspecified. EDMS 15:39 Ajay Crowley is Hospitalizing Provider. pm1 15:40 Straight cath inserted, using sterile technique, 18 Fr. Specimen obtained. Returned tw2 cloudy urine. Patient tolerated well. JORDEN Gomez served as case manager specialist. 16:00 Awaiting: IV abx medication from pharmacy. tw2 19:30 No provider procedures requiring assistance completed. Patient admitted, IV remains in jb4 place. Administered Medications: 15:08 Drug: NS 0.9% 500 ml Route: IV; Rate: bolus; Site: right antecubital; tw2 17:45 Follow up: Response: No adverse reaction; IV Status: Completed infusion; IV Intake: tw2 500ml 15:46 Not Given (Changed to azactamm): Tobramycin 2 mg/kg IVPB once pm1 15:53 Drug: Zofran (Ondansetron) 4 mg Route: IVP; Site: right antecubital; tw2 16:30 Follow up: Response: No adverse reaction hb 15:55 Drug: morphine 2 mg {Note: RASS 0.} Route: IVP; Site: right antecubital; tw2 16:30 Follow up: Response: No adverse reaction hb 17:33 Drug: Aztreonam 2 grams Route: IVPB; Infused Over: 60 mins; Site: right antecubital; tw2 18:52 Follow up: Response: No adverse reaction; IV Status: Completed infusion; IV Intake: tw2 100ml Intake: 17:45 IV: 500ml; Total: 500ml. tw2 18:52 IV: 100ml; Total: 600ml. tw2 Outcome: 15:39 Decision to Hospitalize by Provider. pm1 19:30 Admitted to Med/surg accompanied by tech, via wheelchair, room 218, with chart, Report jb4 called to JORDEN Lindquist 19:30 Condition: stable 19:30 Discharge instructions given to patient, Instructed on the need for admit, Demonstrated understanding of instructions. 19:45 Patient left the ED. jb4 Signatures: Dispatcher [facility] EDCA Melendez, Stacey dsJabier Alexander, AURA [employer] pm1 Patricia Huang, RN RN hb Massiel Freeman RN RN tw2 Alejandro Lundberg, RN RN jb4 Joan Mota, RN RN ll1 Corrections: (The following items were deleted from the chart) 17:34 17:24 BP 109 / 67; Pulse 7bpm; Resp 15bpm; Pulse Ox 98% RA; hb tw2
--- NOTE | 2021-03-06 15:39 | EDPHYS ---
Physician Documentation [facility] Name: Guerita Long Age: 70 yrs Sex: Female : 1950 Arrival Date: 03/06/2021 Time: 13:00 Bed 3 Private MD: ED Physician José Segovia HPI: 03/06 14:59 This 70 yrs old Female presents to ER via Wheelchair with complaints of pm1 Urinary Problem - Sent by Dr Huddleston. 14:59 The patient presents with Fever and suprapubic pain. Onset: The symptoms/episode pm1 began/occurred Patient with onset of fever and pain today. Modifying factors: The symptoms are alleviated by nothing, the symptoms are aggravated by nothing. Associated signs and symptoms: Pertinent positives: fever, abdominal pain, Pertinent negatives: dysuria. Severity of symptoms: in the emergency department the symptoms have improved, OTC medication for fever. The patient has been recently seen by a physician: Dr. Huddleston. Left side ureter stent placed on Monday. Patient contacted Dr. Huddleston in the morning and informed him of her symptoms. He wants patient evaluated in the ER and admitted to the hospital. Requests patient started on cefepime due to history of uti with pseudomonas. Historical: - Allergies: 13:01 PENICILLINS; ll1 13:01 loperamide; ll1 - PMHx: 13:01 CVA; ll1 13:07 Hypertensive disorder; high cholesterol; ll1 - PSHx: 13:07 kidney stent; ll1 - Immunization history:: Flu vaccine is up to date. Client reports receiving the 2nd dose of the Covid vaccine. - Social history:: Smoking status: Patient denies any tobacco usage or history of. ROS: 14:59 Cardiovascular: Negative for chest pain, palpitations, and edema, Respiratory: Negative pm1 for shortness of breath, cough, wheezing, and pleuritic chest pain. 14:59 Back: Negative for injury and pain, : Negative for injury, bleeding, discharge, and swelling, MS/Extremity: Negative for injury and deformity, Skin: Negative for injury, rash, and discoloration, Neuro: Negative for headache, weakness, numbness, tingling, and seizure. 14:59 Constitutional: Positive for fever, Negative for poor PO intake. 14:59 Abdomen/GI: Positive for abdominal pain, of the left of suprapubic area, Negative for nausea, vomiting, and diarrhea. 14:59 All other systems are negative. Exam: 14:59 Constitutional: This is a well developed, well nourished patient who is awake, alert, pm1 and in no acute distress. Head/Face: Normocephalic, atraumatic. 14:59 Back: No spinal tenderness. No costovertebral tenderness. Full range of motion. Skin: Warm, dry with normal turgor. Normal color with no rashes, no lesions, and no evidence of cellulitis. MS/ Extremity: Pulses equal, no cyanosis. Neurovascular intact. Full, normal range of motion. 14:59 Eyes: Exam is negative for acute changes, Extraocular movements: no acute changes, Conjunctiva: no acute changes, no injection. 14:59 ENT: Mouth: Lips: normal, Oral mucosa: normal, pink and intact, moist. 14:59 Cardiovascular: Rate: normal, Rhythm: regular, Pulses: no pulse deficits are appreciated. 14:59 Respiratory: Exam negative for acute changes, respiratory distress, shortness of breath. 14:59 Abdomen/GI: Inspection: abdomen appears normal, Palpation: soft, in all quadrants, mild abdominal tenderness, in the left of suprapubic area. 14:59 Neuro: Exam negative for acute changes, Orientation: is normal, Mentation: is normal, Motor: is normal, moves all fours. Vital Signs: 13:02 BP 110 / 79; Pulse 77; Resp 16; Temp 98.3; Pulse Ox 96% ; Weight 54.43 kg; Height 5 ft. ll1 4 in. (162.56 cm); Pain 3/10; 15:57 BP 104 / 68; Pulse 79; Resp 17; Pulse Ox 97% on R/A; tw2 17:24 BP 109 / 67; Pulse 75; Resp 15; Pulse Ox 98% on R/A; tw2 18:36 BP 111 / 66; Pulse 78; Resp 17; Pulse Ox 95% on R/A; tw2 19:30 BP 139 / 83; Pulse 81; Resp 16; Pulse Ox 99% on R/A; jb4 13:02 Body Mass Index 20.60 (54.43 kg, 162.56 cm) ll1 MDM: 14:33 Patient medically screened. pm1 15:03 ED course: Patient with anaphylaxis with PCN. Unknown reaction to quinolone per patient pm1 but she reports history of allergy. Dr. Huddleston wanted cefepime but will give the patient aminoglycoside instead for pseudomonas coverage. 15:22 Data reviewed: vital signs. Data interpreted: Pulse oximetry: on room air is 96 %. pm1 Interpretation: normal. 15:38 Counseling: I had a detailed discussion with the patient and/or guardian regarding: the pm1 historical points, exam findings, and any diagnostic results supporting the discharge/admit diagnosis, lab results, radiology results, the need for further work-up and treatment in the hospital. 15:44 Physician consultation: Ajay Crowley was contacted at 15:47, regarding admission, pm1 patient's condition, and will see patient would like medications started, Wants azactam instead of tobramycin for abx coverage. 03/06 14:42 Order name: Basic Metabolic Panel pm03/06 14:42 Order name: CBC with Diff pm03/06 14:42 Order name: Hepatic Function pm03/06 14:42 Order name: Lipase; Complete Time: 15:42 pm03/06 14:42 Order name: Blood Culture Adult (2) pm03/06 14:42 Order name: Procalcitonin; Complete Time: 16:43 pm03/06 14:42 Order name: Lactate; Complete Time: 15:40 pm03/06 14:42 Order name: Basic Metabolic Panel; Complete Time: 15:42 EDMS 03/06 14:42 Order name: CBC with Automated Diff; Complete Time: 16:43 EDMS 03/06 14:42 Order name: Liver (Hepatic) Function; Complete Time: 15:42 EDDC 03/06 15:10 Order name: Urine Microscopic Only; Complete Time: 16:43 pm03/06 15:10 Order name: Urine Culture pm03/06 15:46 Order name: Urine Dipstick-Ancillary ED03/06 16:28 Order name: Manual Differential; Complete Time: 16:43 EDMS 03/06 14:42 Order name: IV Saline Lock; Complete Time: 15:08 pm03/06 14:42 Order name: Labs collected and sent; Complete Time: 15:08 pm03/06 15:10 Order name: Urine Dipstick-Ancillary (obtain specimen); Complete Time: 15:57 pm03/06 15:11 Order name: Abdomen ; Complete Time: 15:34 EDMS 03/06 15:18 Order name: Straight Cath - Urine; Complete Time: 15:41 tw2 Administered Medications: 15:08 Drug: NS 0.9% 500 ml Route: IV; Rate: bolus; Site: right antecubital; tw2 17:45 Follow up: Response: No adverse reaction; IV Status: Completed infusion; IV Intake: tw2 500ml 15:46 Not Given (Changed to azactamm): Tobramycin 2 mg/kg IVPB once pm1 15:53 Drug: Zofran (Ondansetron) 4 mg Route: IVP; Site: right antecubital; tw2 16:30 Follow up: Response: No adverse reaction hb 15:55 Drug: morphine 2 mg {Note: RASS 0.} Route: IVP; Site: right antecubital; tw2 16:30 Follow up: Response: No adverse reaction hb 17:33 Drug: Aztreonam 2 grams Route: IVPB; Infused Over: 60 mins; Site: right antecubital; tw2 18:52 Follow up: Response: No adverse reaction; IV Status: Completed infusion; IV Intake: tw2 100ml Disposition: 03/07 07:01 Co-signature as Attending Physician, José Segovia MD I agree with the assessment and rn plan of care. Attestation: The patient's history, exam findings, diagnostics, and a summary of any interventions or procedures was reviewed in detail with Jabier Meade NP. Disposition Summary: 03/06/21 15:39 Hospitalization Ordered Hospitalization Status: Inpatient Admission pm1 Provider: Ajay Crowley pm1 Location: Telemetry/[facility] (Inpatient) pm1 Condition: Stable pm1 Problem: new pm1 Symptoms: have improved pm1 Bed/Room Type: Standard pm1 Room Assignment: 218(03/06/21 18:03) dw Diagnosis - Fever, unspecified pm1 - UTI/ Urinary tract infection, site not specified pm1 Forms: - Medication Reconciliation Form pm1 - SBAR form pm1 Signatures: Dispatcher MedHo Neli Mckinley RN RN dw Nieto, Roman, MD MD rn Marinas, Patrick, NP MARKETING SALES REPRESENTATIVE pm1 Massiel Freeman RN RN tw2 Joan Mota RN RN 1 Patricia Huang RN Corrections: (The following items were deleted from the chart) 03/06 15:11 14:42 Abdomen Pelvis W Con+CT.RAD.BRZ ordered. EDMS EDMS 18:03 15:39 pm1 dw
[2021-03-06 15:40] LABS: ALT/SGPT 17 U/L (12-78); AST/SGOT 16 U/L (15-37); Albumin 2.4 g/dL (3.4-5.0); Alkaline Phosphatase 63 U/L (45-117); BUN Blood Urea Nitrogen 32 mg/dL (7-18); Bicarbonate 24 mmol/L (21-32); Bilirubin Direct < 0.1 mg/dL (0-0.2); Bilirubin Total 0.4 mg/dL (0.2-1.0); Glucose Level 100 mg/dL (74-106); Lipase 81 U/L (73-393); Potassium 3.9 mmol/L (3.5-5.1); Protein, Total 6.6 g/dL (6.4-8.2); Sodium Level 136 mmol/L (136-145)
[2021-03-06 15:46] LABS: Urine Blood 3+ (Negative); Urine Glucose Negative (Negative); Urine Protein 3+ (Negative); Urine Specific Gravity 1.025 (1.005-1.030)
[2021-03-06] MEDS ORDERED: NA CHLORIDE 0.9% IV ONE (16:00)
[2021-03-06] MEDS ORDERED: AZTREONAM 2 GM in NA CHLORIDE 0.9% 100 ML IV SCH (16:00)
[2021-03-06] MEDS ORDERED: TOBRAMYCIN IV ONE (16:00)
[2021-03-06] MEDS ORDERED: MORPHINE 2 MG/ML SYR ONE (16:08)
[2021-03-06] MEDS ORDERED: ONDANSETRON 4 MG/2 ML VIAL ONE (16:08)
[2021-03-06 16:29] LABS: Blood Morphology Comment NOT SEEN (NOT SEEN); Platelet Estimate ADEQ
[2021-03-06 16:34] LABS: Urine Amorphous Sediment 2+ /HPF (NONE SEEN); Urine Bacteria >50 /HPF (<20); Urine RBC >50 /HPF (NONE SEEN)
--- NOTE | 2021-03-06 17:40 | P.HP ---
Certification for Inpatient Patient admitted to: Inpatient With expected LOS: >2 Midnights Practitioner: I am a practitioner with admitting privileges, knowledge of patient current condition, hospital course, and medical plan of care. Services: Services provided to patient in accordance with Admission requirements found in Title 42 Section 412.3 of the Code of Federal Regulations Patient History Date of Service: 03/06/21 Reason for admission: Suprapubic pain History of Present Illness: 70-year-old woman will had a stent placed in the right ureteral for kidney stone about 4 days ago was referred to the emergency department by her Urologist Dr. Huddleston due to complaint of suprapubic pain, dysuria, increased urinary frequency and fever. UA done in the emergency department suggested presence of UTI. CT abdomen and pelvis reports stone in the right ureter and the presence of stent, no hydronephrosis. Noted patient has severe allergy to penicillin. She also reported allergy to fluoroquinolones. She is given a dose of IV Azactam in the ED. Patient admitted for further management of complicated UTI. Allergies loperamide Allergy (Verified 03/01/21 13:59) Anaphylaxis Penicillins Allergy (Verified 03/01/21 13:59) Rash Home Medications: Aspirin [Aspirin EC 81 MG] 81 mg PO ,08/02/18 Biotin 5,000 mcg PO ,,08/02/18 Celecoxib [Celebrex] 200 mg PO DAILY 08/02/18 Folic Acid 1 mg PO DAILY 08/02/18 Metoprolol Succinate [Toprol Xl*] 50 mg PO BID 08/02/18 Rituximab [Rituxan] 10 mg IV ONCE 08/02/18 Ubidecarenone/Vit E Acet [Co Q-10 100 mg Softgel] 1 each PO ,,08/02/18 Venlafaxine HCl [Venlafaxine HCl ER] 75 mg PO DAILY 08/02/18 dilTIAZem HCl [Diltiazem 24Hr ER (Xr)] 180 mg PO [id number] 08/02/18 methylPREDNISolone [Medrol] 4 mg PO DAILY 08/02/18 Calcium Carbonate [Calcium] 1 tab PO DAILY 03/01/21 Cholecalciferol (Vitamin D3) [Vitamin D3] 1 cap PO ,W,F 03/01/21 Fenofibrate [Tricor*] 1 tab PO ,W,F 03/01/21 Lifitegrast [Xiidra] 1 gtt EACH EYE BEDTIME 03/01/21 Methotrexate [Methotrexate*] 3 tab PO SEECOM 03/01/21 Niacin 1 tab PO M,W,F 03/01/21 [place]-3/Dha/Epa/Fish Oil [Fish Oil 1,000 mg Softgel] 1 cap PO M,W,F 03/01/21 Potassium Gluconate [Potassium] 1 tab PO DAILY 03/01/21 Red Yeast Rice 1 cap PO M,W,F 03/01/21 Vitamin E 1 cap PO M,W,F 03/01/21 hydroCHLOROthiazide [Hydrochlorothiazide] 1 tab PO M,W,F 03/01/21 - Past Medical/Surgical History -: Rheumatoid arthritis -: Hypercholesteremia -: Ureteral stent placement - Family History Mother -: Diabetes - Social History Smoking Status: Never smoker Alcohol use: No CD- Drugs: No Place of Residence: Home Review of Systems Other: No nausea or vomiting, no diarrhea, no chest pain, no diarrhea. Except as documented, all other systems reviewed and negative. Physical Examination - Physical Exam General: Alert, In no apparent distress, Oriented x3 HEENT: Normocephalic, PERRLA, Mucous membr. moist/pink, EOMI, Sclerae nonicteric Neck: Supple, JVD not distended Respiratory: Clear to auscultation bilaterally, Normal air movement Cardiovascular: No edema, Regular rate/rhythm, Normal S1 S2 Gastrointestinal: Normal bowel sounds, Soft and benign, Non-distended, Tenderness (Mild tenderness in the suprapubic and left iliac fossa.) Musculoskeletal: No swelling, No tenderness Integumentary: No rashes, No erythema Neurological: Normal speech, Normal strength at 5/5 x4 extr, Cranial nerves 3-12 intact Lymphatics: No axilla or inguinal lymphadenopathy - Studies Laboratory Data (last 24 hrs) 03/06/21 15:08: WBC 14.00 H D, Hgb 13.1, Hct 40.9, Plt Count 134 L D 03/06/21 15:08: Sodium 136, Potassium 3.9, BUN 32 H, Creatinine 1.63 H, Glucose 100, Total Bilirubin 0.4, AST 16, ALT 17, Alkaline Phosphatase 63, Lipase 81 Assessment and Plan - Problems (Diagnosis) (1) UTI (urinary tract infection) Current Visit: Yes Status: Acute (2) S/P ureteral stent placement Current Visit: Yes Status: Acute (3) Nephrolithiasis Current Visit: No Status: Acute (4) Acute renal failure Current Visit: Yes Status: Acute - Plan Admit to the medical floor. Hydrate with IV normal saline. Broad-spectrum antibiotic cover with IV Azactam and IV vancomycin. Follow urine culture and blood cultures. Consult to urology to evaluate. Pain management as needed.. Supportive measures. - Advance Directives Does patient have a Living Will: No Does patient have a Durable POA for Healthcare: No
[2021-03-06] MEDS ORDERED: TRAMADOL HCL 50 MG TAB PO PRN (19:47)
[2021-03-06] MEDS ORDERED: ONDANSETRON 4 MG/2 ML VIAL IV PRN (19:47)
[2021-03-06 20:19] VITALS: BMI 20.6
[2021-03-06] MEDS: MORPHINE 2 MG/ML SYR IV PRN (21:44)
[2021-03-06] MEDS: NA CHLORIDE 0.9% 1,000 ML IV SCH (21:45)
[2021-03-07] MEDS: HEPARIN 5000 UNIT/ML 1 ML VIAL SQ SCH ×3 (01:00→16:16)
[2021-03-07 01:50] LABS: Urine Appearance TURBID (Clear); Urine Blood 3+ (Negative); Urine Color DK YELLOW (Yellow); Urine Glucose TRACE (Negative); Urine Protein 3+ (Negative); Urine Specific Gravity >=1.030 (1.005-1.030); Urine Urobilinogen 0.2 mg/dL (0.2-1.0)
[2021-03-07 02:16] LABS: Urine Bilirubin 1+ (Negative); Urine Microscopic Reflex ORDER UMIC
[2021-03-07 02:41] LABS: Urine Bacteria >50 /HPF (<20)
[2021-03-07 05:48] LABS: Absolute Lymphocytes (CBC) 2.8 K/uL (0.7-4.9); Basophils % 0.8 % (0-1.3); Hematocrit 36.4 % (36.0-45.0); Lymphocytes % 25.7 % (15.3-44.8); MPV 11.5 fL (7.6-11.3); RBC Red Blood Cell Count 4.08 M/uL (3.86-4.86)
[2021-03-07 06:01] LABS: Magnesium 1.9 mg/dL (1.8-2.4); Phosphorus 2.7 mg/dL (2.5-4.9); Potassium 4.2 mmol/L (3.5-5.1)
[2021-03-07] MEDS: NA CHLORIDE 0.9% 1,000 ML IV SCH ×3 (07:19→20:43)
[2021-03-07 07:59] LABS: Anisocytosis 1+; Blood Morphology Comment NOTED (NOT SEEN); Platelet Estimate DECR; Platelets, Giant PRESENT
[2021-03-07] MEDS: AZTREONAM 1 GM/VIAL IV SCH ×2 (08:00)
[2021-03-07] MEDS: ACETAMINOPHEN 500 MG TAB PO PRN (14:08)
--- NOTE | 2021-03-07 14:57 | P.PN ---
Subjective Date of Service: 03/07/21 Chief Complaint: Suprapubic pain Patient reporting poor sleep last night. She denies dysuria. She has been experiencing intermittent fever. Physical Examination - Vital Signs Temperature: 101.3 F Blood Pressure: 128/78 Pulse: 120 Respirations: 18 Pulse Ox (%): 94 - Physical Exam General: Alert, In no apparent distress, Oriented x3 HEENT: Mucous membr. moist/pink Neck: Supple, JVD not distended Respiratory: Clear to auscultation bilaterally, Normal air movement Cardiovascular: No edema, Regular rate/rhythm, Normal S1 S2 Gastrointestinal: Normal bowel sounds, Soft and benign, Non-distended, No tenderness Musculoskeletal: No swelling Integumentary: No rashes, No erythema Neurological: Normal strength at 5/5 x4 extr - Studies Laboratory Data (last 24 hrs) 03/06/21 15:08: WBC 14.00 H D, Hgb 13.1, Hct 40.9, Plt Count 134 L D 03/06/21 15:08: Sodium 136, Potassium 3.9, BUN 32 H, Creatinine 1.63 H, Glucose 100, Total Bilirubin 0.4, AST 16, ALT 17, Alkaline Phosphatase 63, Lipase 81 Assessment And Plan - Current Problems (Diagnosis) (1) UTI (urinary tract infection) Current Visit: Yes Status: Acute (2) S/P ureteral stent placement Current Visit: Yes Status: Acute (3) Nephrolithiasis Current Visit: No Status: Acute (4) Acute renal failure Current Visit: Yes Status: Acute (5) Rheumatoid arthritis Current Visit: Yes Status: Acute - Plan Continue supportive measures with IV normal saline. Case discussed with Dr. Huddleston. Prior urine culture grew Pseudomonas. He recommend IV cefepime. Patient experiencing fever on IV Azactam. Antibiotics changed to IV Cefepime. Follow urine culture and blood cultures. Pain management as needed.. Supportive measures. Hold blood pressure medications given soft blood pressure. Continue other home medications.
[2021-03-07] MEDS: CEFEPIME/SWI 1gm 10 ML IVP SCH (16:09)
[2021-03-07] MEDS ORDERED: CEFEPIME 1 GM/VIAL IV SCH (17:00)
[2021-03-07] MEDS ORDERED: AZTREONAM 1 GM in NA CHLORIDE 0.9% 50 ML IV SCH (17:00)
[2021-03-07] MEDS: MORPHINE 2 MG/ML SYR IV PRN (20:38)
[2021-03-07] MEDS: Lifitegrast [Xiidra] Droperette OPTH SCH (21:00)
[2021-03-07] MEDS: VANCOMYCIN 1 GM in NA CHLORIDE 0.9% 250 ML IVPB SCH (23:00)
[2021-03-07] MEDS ORDERED: NA CHLORIDE 0.9% 250 ML ONE (23:19)
[2021-03-07] MEDS ORDERED: VANCOMYCIN 1 GM/VIAL ONE (23:19)
[2021-03-08] MEDS: CEFEPIME/SWI 1gm 10 ML IVP SCH ×3 (01:00→16:38)
[2021-03-08] MEDS: HEPARIN 5000 UNIT/ML 1 ML VIAL SQ SCH ×3 (01:01→16:38)
[2021-03-08] MEDS ORDERED: DILTIAZEM HCL 180 MG PO SCH (06:00)
[2021-03-08 06:02] LABS: Absolute Lymphocytes (CBC) 2.5 K/uL (0.7-4.9); Basophils % 0.7 % (0-1.3); Hematocrit 32.9 % (36.0-45.0); Lymphocytes % 33.7 % (15.3-44.8); MPV 11.7 fL (7.6-11.3); RBC Red Blood Cell Count 3.72 M/uL (3.86-4.86)
[2021-03-08 06:07] LABS: Potassium 3.7 mmol/L (3.5-5.1)
[2021-03-08] MEDS: FOLIC ACID 1 MG TABLET PO SCH (08:31)
[2021-03-08] MEDS: VENLAFAXINE HCL XR 75 MG CAP PO SCH (08:31)
[2021-03-08] MEDS: NA CHLORIDE 0.9% 1,000 ML IV SCH ×2 (08:32→20:07)
[2021-03-08] MEDS ORDERED: POTASSIUM CL SA 10 MEQ TAB PO ONE (09:00)
[2021-03-08] MEDS: Lifitegrast [Xiidra] Droperette OPTH SCH ×2 (09:00→20:08)
[2021-03-08] MEDS: DILTIAZEM HCL 180 MG SR CAP PO SCH (09:31)
[2021-03-08] MEDS: methylPREDNISolone 4 MG TAB PO SCH (10:23)
[2021-03-08] MEDS: ACETAMINOPHEN 500 MG TAB PO PRN (12:50)
--- NOTE | 2021-03-08 14:40 | P.PN ---
Subjective Date of Service: 03/08/21 Chief Complaint: Suprapubic pain Patient complaining of drowsiness otherwise no other complain. She continued to experience intermittent fever. Physical Examination - Vital Signs Temperature: 100 F Blood Pressure: 114/65 Pulse: 117 Respirations: 18 Pulse Ox (%): 93 - Physical Exam General: Alert, In no apparent distress, Oriented x3 HEENT: Mucous membr. moist/pink Neck: JVD not distended Respiratory: Clear to auscultation bilaterally, Normal air movement Cardiovascular: Regular rate/rhythm, Normal S1 S2 Gastrointestinal: Soft and benign, Non-distended, No tenderness Musculoskeletal: No swelling Integumentary: No rashes Neurological: Normal speech, Normal strength at 5/5 x4 extr - Studies Microbiology Data (last 24 hrs): 03/06/21 15:45 Catheterized Urine [place] Count - Final <10,000 CFU/ML. 03/06/21 15:45 Catheterized Urine - Final MIXED NEIL. Assessment And Plan - Current Problems (Diagnosis) (1) UTI (urinary tract infection) Current Visit: Yes Status: Acute (2) S/P ureteral stent placement Current Visit: Yes Status: Acute (3) Nephrolithiasis Current Visit: No Status: Acute (4) Acute renal failure Current Visit: Yes Status: Acute (5) Rheumatoid arthritis Current Visit: Yes Status: Acute - Plan Patient with intermittent fever. Urine culture yielded mixed growth. Case discussed with Dr. Huddleston. Prior urine culture grew Pseudomonas. An tibiotics changed to IV Cefepime per Dr. Wolf's recommendation. Blood cultures: No growth to date. Follow urine culture. Pain management as needed.. Supportive measures. Continue to hold blood pressure medications given soft blood pressure. Continue other home medications.
[2021-03-08] MEDS ORDERED: HOME MED 1 EA UNK (Omega-3/Dha/Epa/Fish Oil [Fish Oil 1,000 Mg Softgel] Capsule) PO SCH (17:00)
[2021-03-08] MEDS ORDERED: NIACIN 500 MG SR TAB PO SCH (17:00)
[2021-03-08] MEDS ORDERED: DOCOSAHEXANOIC AC/EPA 1000 MG PO SCH (17:00)
[2021-03-08] MEDS ORDERED: FENOFIBRATE 48 MG TAB PO SCH (17:00)
[2021-03-08] MEDS ORDERED: hydroCHLOROthiazide 25 MG TAB PO SCH (17:00)
[2021-03-08] MEDS ORDERED: COENZYME Q10- 200 MG CAP PO SCH (17:00)
[2021-03-08] MEDS ORDERED: VITAMIN E 400 IU CAP PO SCH (17:00)
[2021-03-08] MEDS: VANCOMYCIN 1 GM in NA CHLORIDE 0.9% 250 ML IVPB SCH ×2 (20:08→20:43)
--- NOTE | 2021-03-08 22:34 | CON ---
Date of Consultation: 03/08/2021 Reason For Consultation: Fever of uncertain origin and generalized malaise. History Of Present Illness: Ms. Long is a 70-year-old woman with a history of recurrent urinary tract infections and left flank pain that radiated into her anterior abdomen, which was likely associated with the presence of an obstructing ureteral calculus that had been present for some time. I evaluated the patient and recommended management of the ureteral obstruction, and we started by placing a left ureteral stent on 03/02/2021. The patient notes she was feeling well for the first 48 hours after the procedure, and then on , she started feeling significant malaise. Eventually on Monday, her contacted me suggesting she was having a difficult time getting out of bed, and later that morning she developed a fever at which point I recommended they come to the emergency department fortreatment as she had a history of a resistant Pseudomonas UTI in her outpatient cultures. The patient came by and left a urine culture on 03/06/2021, the results of which were less than 10,000 colonies mixed bg only. Subsequent blood cultures obtained were unremarkable for infection. Ultimately, the patient was admitted after her evaluation in the emergency department. CT scan was obtained on 03/06/[address] noted interval placement of a left ureteral stent without hydronephrosis and the stone still present in the left proximal ureter. Increased bladder wall thickening nonspecifically was seen suggestive of cystitis. No other acute findings were noted within the abdomen and pelvis with the limited noncontrast imaging. As a result, the patient was admitted and initially started on Aztreonam because of her anaphylactic reaction to penicillins, but then ultimately switched to cefepime because of the Pseudomonas. She also has been treated with vancomycin and otherwise supportive care. Despite this, the patient continues to feel significantly ill and not herself. Physical Examination: She is alert and awake and communicative, in no acute distress, but ill appearing. There was no dyspnea or signs of respiratory distress. Laboratory Data: Laboratory analysis revealed an elevated white count of 14.0 on 03/06 that has steadily declined over the last 2 days. Her hemoglobin and hematocrit have declined suggestive of dilution. Her creatinine peaked at 1.63 on 03/06/2021, but has declined over the last 2 days back to 0.79 today. Assessment: Ms. Long is a 70-year-old woman with a history of recurrent urinary tract infections and left-sided pain secondary to a proximal ureteral calculus status post cystoscopy and stent placement on 03/02/2021, now with no definitive evidence of bacterial UTI, but with elevated white count that has responded to antimicrobial treatment. While we have not been able to demonstrate any specific infection, I think it is reasonable to continue to treat the patient with antimicrobials anticipating symptomatic improvement. Once sufficiently clinically improved, she likely would be eligible for discharge on an oral antimicrobial potentially Levaquin given the absence of a resistant Pseudomonas being noted in any of her cultures to date. Subsequent followup should be established with me in the Urology Clinic to plan definitive left ureteroscopic stone management. KRISTEN/GAEL Voice ID: [id number] Report ID: [id number]
[2021-03-08] MEDS ORDERED: VANCOMYCIN 1 GM in NA CHLORIDE 0.9% 250 ML IVPB SCH (23:00)
[2021-03-09] MEDS: CEFEPIME/SWI 1gm 10 ML IVP SCH ×3 (00:23→17:40)
[2021-03-09] MEDS: HEPARIN 5000 UNIT/ML 1 ML VIAL SQ SCH ×3 (00:23→17:39)
[2021-03-09 03:29] VITALS: O2SAT 94
[2021-03-09 04:25] LABS: Basophils % 0.4 % (0-1.3); Hematocrit 29.5 % (36.0-45.0); Lymphocytes % 32.4 % (15.3-44.8); MPV 11.8 fL (7.6-11.3)
[2021-03-09 04:35] LABS: Potassium 3.9 mmol/L (3.5-5.1)
[2021-03-09] MEDS: DILTIAZEM HCL 180 MG SR CAP PO SCH (05:22)
[2021-03-09] MEDS: NA CHLORIDE 0.9% 1,000 ML IV SCH (07:47)
--- NOTE | 2021-03-09 08:23 | P.PN ---
Subjective Date of Service: 03/09/21 Chief Complaint: Suprapubic pain Subjective: Improving (feeling better since middle of the night. still feeling very weak / unsteady. slight suprapubic discomfort when urinating - improving as well.) Review of Systems 10-point ROS is otherwise unremarkable Physical Examination - Vital Signs Temperature: 97.8 F Blood Pressure: 145/68 Pulse: 74 Respirations: 16 Pulse Ox (%): 94 - Studies Microbiology Data (last 24 hrs): 03/06/21 15:45 Catheterized Urine [place] Count - Final <10,000 CFU/ML. 03/06/21 15:45 Catheterized Urine - Final MIXED NEIL. Assessment & Plan Physician Review Additional Text: Physical Exam General: Alert, In no apparent distress, Oriented x3 HEENT: Mucous membr. moist/pink Respiratory: Clear to auscultation bilaterally, Normal air movement Cardiovascular: Regular rate/rhythm, Normal S1 S2 Gastrointestinal: Soft, mild tenderness in suprapubic region Musculoskeletal: No swelling Integumentary: No rashes Neurological: Normal speech, Normal strength at 5/5 x4 extr Assessment And Plan Urinary tract infection, acute cystitis s/p ureteral stent placement ureterolithiasis Acute renal failure h/o rheumatoid arthritis -Last fever was yesterday afternoon -Symptoms improving -Patient with generalized weakness, reports feeling unsafe to be discharged home -Urine culture without growth, blood culture negative -Prior urine culture obtained by Dr. Morales, reports may be able to use levaquin on discharge for PO option -continue cefepime for now -PT consulted Dispo: anticipate dc in next 24-48hrs. Likely home w/ HH, PT consulted Time Spent Managing Pts Care (In Minutes): 35
[2021-03-09] MEDS ORDERED: POTASSIUM CL SA 10 MEQ TAB PO ONE (09:00)
[2021-03-09] MEDS: Lifitegrast [Xiidra] Droperette OPTH SCH ×2 (09:00→21:27)
[2021-03-09] MEDS: methylPREDNISolone 4 MG TAB PO SCH (09:40)
[2021-03-09] MEDS: VENLAFAXINE HCL XR 75 MG CAP PO SCH (09:41)
[2021-03-09] MEDS: FOLIC ACID 1 MG TABLET PO SCH (09:41)
[2021-03-10] MEDS: CEFEPIME/SWI 1gm 10 ML IVP SCH ×2 (00:53→09:07)
[2021-03-10] MEDS: HEPARIN 5000 UNIT/ML 1 ML VIAL SQ SCH ×2 (00:53→09:08)
[2021-03-10 05:23] LABS: BUN Blood Urea Nitrogen 12 mg/dL (7-18); Bicarbonate 24 mmol/L (21-32); Glucose Level 94 mg/dL (74-106); Magnesium 1.7 mg/dL (1.8-2.4); Potassium 3.9 mmol/L (3.5-5.1); Sodium Level 138 mmol/L (136-145)
[2021-03-10 05:24] LABS: Absolute Lymphocytes (CBC) 2.1 K/uL (0.7-4.9); Basophils % 0.3 % (0-1.3); Hematocrit 30.5 % (36.0-45.0); MPV 11.7 fL (7.6-11.3); RBC Red Blood Cell Count 3.56 M/uL (3.86-4.86)
[2021-03-10] MEDS: DILTIAZEM HCL 180 MG SR CAP PO SCH (06:00)
[2021-03-10] MEDS ORDERED: POTASSIUM CL SA 10 MEQ TAB PO ONE (08:00)
[2021-03-10] MEDS ORDERED: MAGNESIUM SULFATE 1 gm IVPB 1 GM/100 ML BAG IV ONE (08:00)
[2021-03-10] MEDS: Lifitegrast [Xiidra] Droperette OPTH SCH (09:00)
[2021-03-10] MEDS: methylPREDNISolone 4 MG TAB PO SCH (09:07)
[2021-03-10] MEDS: VENLAFAXINE HCL XR 75 MG CAP PO SCH (09:08)
[2021-03-10] MEDS: FOLIC ACID 1 MG TABLET PO SCH (09:08)
[2021-03-10 09:18] VITALS: BP 149/69; TEMP 98.2
--- NOTE | 2021-03-10 17:16 | P.DS ---
Admission Date: 03/06/21 Discharge Date: 03/10/21 Disposition: ROUTINE DISCHARGE Discharge Condition: GOOD Reason for Admission: Suprapubic pain Consultations: UrologyDrJosé Miguel Huddleston Procedures: CT Abd/pelvis (03/06): FINDINGS: Linear opacities within the lung bases favored to represent scarring or subsegmental atelectasis. Coronary artery calcifications. Cardiomegaly. No focal liver lesions are identified. The gallbladder is within normal limits. The pancreas is within normal limits. No adrenal lesions are seen. Bilateral renal calculi. A left ureteral stent is in place. There is a stone measuring 6 millimeters along the left mid ureter. The bladder wall is mildly thickened. Hysterectomy. Atherosclerosis without aneurysm. Small fat containing umbilical hernia. Diverticulosis without diverticulitis. No bowel obstruction. No acute fractures. IMPRESSION: Interval placement of a left ureteral stent. No hydronephrosis. A stone is still present in the left proximal ureter. Increased bladder wall thickening which is nonspecific but may indicate cystitis. Correlate with urinalysis. No other acute findings are seen. A limited non-contrast examination was performed as detailed. Problem list Urinary tract infection, acute cystitis s/p ureteral stent placement for ureterolithiasis Acute renal failure, resolved h/o rheumatoid arthritis Brief History of Present Illness: 70-year-old woman will had a stent placed in the right ureteral for kidney stone about 4 days ago was referred to the emergency department by her Urologist Dr. Huddleston due to complaint of suprapubic pain, dysuria, increased urinary frequency and fever. UA done in the emergency department suggested presence of UTI. CT abdomen and pelvis reports stone in the right ureter and the presence of stent, no hydronephrosis. Noted patient has severe allergy to penicillin. She is given a dose of IV Azactam in the ED. Patient admitted for further management of complicated UTI. Hospital Course: Patient was empirically treated with IV antibiotics. Urology was consulted, recommended treatment with IV cefepime due to recent urine culture growing Pseudomonas. Patient had significant improvement and resolution of her symptoms and VALENCIA with IV antibiotics and IV fluids. Urine culture and blood cultures obtained on admission were negative, likely due to recent antibiotic usage. Recent Pseudomonas urine culture was only sensitive to Levaquin as a p.o. option. Patient was doing much better and she was discharged on 03/10 with prescription for Levaquin. She initially reported possible allergy to this medication, however on further questioning she said she thinks this medication may have just made her feel "sick" with some nausea. She denied any rash, no swelling, difficulty breathing or swallowing. She was offered to be given 1st dose prior to discharge, however she did not want to delay her discharge home. Follow-up with PCP in 3 to 5 days Follow-up with Dr. Huddleston Vital Signs/Physical Exam: Temp Pulse Resp BP Pulse Ox 98.2 F 83 18 149/69 H 95 03/10/21 08:00 03/10/21 08:00 03/10/21 08:00 03/10/21 08:00 03/10/21 08:00 General: Alert, In no apparent distress HEENT: Mucous membr. moist/pink, Sclerae nonicteric Respiratory: Clear to auscultation bilaterally, Normal air movement Cardiovascular: No edema, Regular rate/rhythm, Normal S1 S2 Gastrointestinal: Soft and benign, Non-distended, No tenderness Musculoskeletal: No swelling, No tenderness Integumentary: No rashes, No significant lesion Neurological: Normal speech, Normal affect Laboratory Data at Discharge: WBC 6.90 K/uL (4.3-10.9) 03/10/21 03:18 Hgb 10.3 g/dL (12.0-15.0) L 03/10/21 03:18 Hct 30.5 % (36.0-45.0) L 03/10/21 03:18 Plt Count 144 K/uL (152-406) L 03/10/21 03:18 Sodium 138 mmol/L (136-145) 03/10/21 03:18 Potassium 3.9 mmol/L (3.5-5.1) 03/10/21 03:18 BUN 12 mg/dL (7-18) 03/10/21 03:18 Creatinine 0.63 mg/dL (0.55-1.3) 03/10/21 03:18 Glucose 94 mg/dL (74-106) 03/10/21 03:18 Phosphorus 2.7 mg/dL (2.5-4.9) 03/07/21 05:26 Magnesium 1.7 mg/dL (1.8-2.4) L 03/10/21 03:18 Total Bilirubin 0.4 mg/dL (0.2-1.0) 03/06/21 15:08 AST 16 U/L (15-37) 03/06/21 15:08 ALT 17 U/L (12-78) 03/06/21 15:08 Alkaline Phosphatase 63 U/L (45-117) 03/06/21 15:08 Lipase 81 U/L (73-393) 03/06/21 15:08 Home Medications: Aspirin [Aspirin EC 81 MG] 81 mg PO MO,FR 08/02/18 Biotin 10,000 mcg PO M,W,F 08/02/18 Celecoxib [Celebrex] 200 mg PO DAILY 08/02/18 Folic Acid 1 mg PO DAILY 08/02/18 Metoprolol Succinate [Toprol Xl*] 50 mg PO BID 08/02/18 Ubidecarenone/Vit E Acet [Co Q-10 100 mg Softgel] 1 each PO M,W,F 08/02/18 Venlafaxine HCl [Venlafaxine HCl ER] 75 mg PO DAILY 08/02/18 dilTIAZem HCl [Diltiazem 24Hr ER (Xr)] 180 mg PO [id number] 08/02/18 methylPREDNISolone [Medrol] 4 mg PO DAILY 08/02/18 Calcium Carbonate [Calcium] 1 tab PO DAILY 03/01/21 Cholecalciferol (Vitamin D3) [Vitamin D3] 1 cap PO M,W,F 03/01/21 Fenofibrate [Tricor*] 1 tab PO M,W,F 03/01/21 Lifitegrast [Xiidra] 1 gtt EACH EYE BID 03/01/21 Methotrexate [Methotrexate*] 3 tab PO SEECOM 03/01/21 Niacin 1 tab PO M,W,F 03/01/21 [place]-3/Dha/Epa/Fish Oil [Fish Oil 1,000 mg Softgel] 1 cap PO M,W,F 03/01/21 Potassium Gluconate [Potassium] 1 tab PO DAILY 03/01/21 Red Yeast Rice 1 cap PO M,W,F 03/01/21 Vitamin E 1 cap PO M,W,F 03/01/21 hydroCHLOROthiazide [Hydrochlorothiazide] 1 tab PO M,W,F 03/01/21 Acetaminophen [Tylenol Extra Strength] 1 tab PO DAILY 03/07/21 Levofloxacin [Levaquin] 500 mg PO DAILY 10 Days #10 tablet 03/10/21 Ondansetron [Zofran] 4 mg PO Q6H PRN 4 Days #10 tab 03/10/21 New Medications: Levofloxacin [Levaquin] 500 mg PO DAILY 10 Days #10 tablet Ondansetron [Zofran] 4 mg PO Q6H PRN 4 Days #10 tab PRN Reason: Nausea / Vomiting Physician Discharge Instructions: You were treated for presumed urinary infection. Your urine and blood cultures did not grow any bacteria. Your symptoms improved with IV fluid and antibiotics. You are discharged home with 10 more days of antibiotics - levaquin. Follow up with your PCP in 3-5 days. Follow up with Dr. Huddleston. Diet: AHA Activity: Ad jim Followup: Patric Huddleston [Primary Care Provider] - (urologist- call to schedule an appointment ) Time spent managing pt's care (in minutes): 40
[2021-03-10] MEDS ORDERED: ENSURE ENLIVE 237 ML CAN PO SCH (21:00)
== END 2021-03-10 11:35 | disposition home or self-care (01) | DRG 690 ==
LOC: ER 12:39 → ERHOLD 17:28 → 2ND 19:35
PROVIDERS: ADMIT Internal Medicine; ATTEND Internal Medicine
DX: N30.00 Acute cystitis without hematuria (principal); N17.9 Acute kidney failure, unspecified; N20.1 Calculus of ureter; M06.9 Rheumatoid arthritis, unspecified; Z96.0 Presence of urogenital implants; Z88.0 Allergy status to penicillin; Z20.822 Contact with and (suspected) exposure to COVID-19
CPT/HCPCS: 36415; 51702; 74176; 80048; 80076; 80202; 81003; 81015; 82565; 82947; 83605; 83690; 83735; 84100; 84145; 85025; 87040; 87086; 87088; 96361; 96365; 96375; 97161; 99285; J0692; J1644; J2270; J2405; J3260; J3370; J3475; J7030; J7050; J7509

== ENCOUNTER 2021-04-13 09:54 | Day surgery (SDC) | payer OTHER ==
[~2021-04-13 09:54] MED LIST changes: -CLINDAMYCIN INJ 600 MG in NA CHLORIDE 0.9% 50 ML IV ONE; +CLINDAMYCIN INJ 600 MG in NA CHLORIDE 0.9% 50 ML IV SCH; -CODEINE 30MG/APAP 300MG TAB PO ONE; -CODEINE 30MG/APAP 300MG TAB PO PRN; -EPHEDRINE SULF 50 MG/ML VIAL ONE; -FENTANYL CITR 100 MCG/2 ML ONE; -GENTAMICIN 80 MG/100 ML BAG 80 MG/100 ML BAG IV ONE; -GLYCOPYRROLATE 0.2 MG/ML SYR ONE; +Gentamicin Inj 120 MG in NA CHLORIDE 0.9% 100 ML IV SCH; -KETOROLAC 30 MG/ML INJ ONE; -LIDOCAINE 2% MPF 5 ML VIAL ONE; -MIDAZOLAM HCL 2 MG/2 ML INJ ONE; -ONDANSETRON 4 MG/2 ML VIAL ONE; -PHENAZOPYRIDINE 100MG TAB PO ONE; -POTASSIUM CL SA 10 MEQ TAB PO ONE; -Ringers Lactate 1,000 ML IV ONE; -dexAMETHasone 10 MG/ML VIAL ONE; -propofoL 200 MG/20 ML VIAL IV ONE
[2021-04-13] MEDS ORDERED: Ringers Lactate 1,000 ML IV ONE (10:35)
[2021-04-13] MEDS ORDERED: FENTANYL CITR 100 MCG/2 ML ONE (13:01)
[2021-04-13] MEDS ORDERED: LIDOCAINE 1% MPF 5 ML VIAL ONE (13:01)
[2021-04-13] MEDS ORDERED: propofoL 200 MG/20 ML VIAL IV ONE (13:01)
[2021-04-13] MEDS ORDERED: PHENAZOPYRIDINE 100MG TAB PO ONE ×3 (13:03→15:27)
[2021-04-13] MEDS ORDERED: CODEINE 30MG/APAP 300MG TAB PO PRN (13:03)
[2021-04-13] MEDS ORDERED: KETOROLAC 30 MG/ML INJ ONE (13:48)
[2021-04-13] MEDS ORDERED: dexAMETHasone 10 MG/ML VIAL ONE (13:48)
[2021-04-13] MEDS ORDERED: ONDANSETRON 4 MG/2 ML VIAL ONE (14:18)
[2021-04-13 14:50] VITALS: BP 122/64; TEMP 97.3; O2SAT 95
[2021-04-13] MEDS ORDERED: CODEINE 30MG/APAP 300MG TAB ONE (15:25)
--- NOTE | 2021-04-13 20:01 | OP ---
Surgeon: AMY WEST Preoperative Diagnosis: Left ureterolithiasis, approximately 8 mm. Postoperative Diagnosis: Left ureterolithiasis, approximately 8 mm. Principle Procedures: 1.Left ureteroscopy. 2.Laser lithotripsy. 3.Left ureteral stent exchange. 4.Stone basketing and extraction. Indication For Procedure: Ms. Long is a 70-year-old woman, who presented previously to the [facility] room for attempted ureteroscopy, but had a left ureteral stent placement. The stone was visible fluoroscopically with no intrarenal calculi present. As a result, she presents today for definitive management of her ureterolithiasis. Procedure In Detail: The patient was consented in the preoperative holding area before being transfe rred to the operative suite where general anesthesia was induced. She was given clindamycin and gent amicin 120 mg IV antimicrobial prophylaxis. Pneumo boots were provided for DVT prophylaxis. She was placed in the lithotomy position, padded and secured to the table appropriately. Her genitalia were prepped using Hibiclens and draped in standard fashion. The case was begun using a 22-[place] rigid cystoscope to traverse the urethra and into the bladder with ease. The bladder was decompressed of s ome cloudy urine and briefly surveyed. It was noted to be somewhat erythematous throughout, but ther e were no papillary mucosal lesions, foreign bodies, or stones other than the presence of the left ur eteral stent with a coil emanating from the left ureteral orifice. As a result, I grasped the left u reteral stent after irrigating her bladder several times to clear the fluid within. I delivered the stent via the meatus, and passed a Sensor wire via the stent into the collecting system with a coil o bserved fluoroscopically. Leaving the wire in place, I then employed the semi-rigid ureteroscope to direct vision access via the urethra to go up the ureter until the stone was encountered in the mid p roximal ureter. Because it was very high up and I did want to keep the tension employed while perfor erik laser lithotripsy, I then employed a 2.4 cm basket to grasp the stone and bring it down into the mid distal ureter. Where it met a point of obstruction. There, I employed a 200 nm laser fiber and a power setting of 0.8 joules and 8-10 hertz to quickly fragment the stone into dust small enough to remove with the basket. I then performed ureteroscopy and basketed several additional stone fragmen ts removing them from the ureter. Once this was completed, a retrograde pyelogram was then performed and did confirm ureteral integrity without any contrast extravasation. As a result, I then removed the ureteroscope, back-loaded the cystoscope over the safety wire, and then placed a 6-[place] by 24 c m double-J left ureteral stent with a coil observed fluoroscopically within the kidney and 1 cystosco pically formed in her bladder. I then again irrigated her bladder of fluid and bloody urine that was seen there, and emptied her bladder. She was then awakened from general anesthesia, transferred to a stretcher after being taken out of the lithotomy position, and then transferred to the [facility] in good condition. Complications: None. Discharge Disposition: I will send her home with a prescription for Bactrim Double Strength tablets once daily for 7 days given the cystitis appearance of her bladder despite negative preoperative urin e culture. I also will send her with a prescription for Myrbetriq 25 mg tablets to take once a day i n addition to the Ditropan XL she had previously been prescribed at 10 mg once daily. A narcotic pre scription for Tylenol with Codeine was also sent for pain control as well. Subsequent followup shoul d be established in the Urology Clinic for cystoscopy and left ureteral stent extraction in 1-2 weeks ' time. KRISTEN/GAEL Voice ID: [id number] Report ID: [id number]
== END 2021-04-13 15:35 | disposition home or self-care (01) ==
LOC: OR 09:54
PROVIDERS: ATTEND Urology
PROC: 0T778DZ Dilation of Left Ureter with Intraluminal Device, Via Natural or Artificial Opening Endoscopic (ICD-10-PCS; 2021-04-13)
PROC: 0TC78ZZ Extirpation of Matter from Left Ureter, Via Natural or Artificial Opening Endoscopic (ICD-10-PCS; principal; 2021-04-13 11:30)
DX: N20.1 Calculus of ureter (principal); N39.0 Urinary tract infection, site not specified; R31.9 Hematuria, unspecified; N20.0 Calculus of kidney; N39.46 Mixed incontinence; N32.89 Other specified disorders of bladder; Z20.822 Contact with and (suspected) exposure to COVID-19
CPT/HCPCS: 87086; 88300; 82360; 74450; 51610; 52356; U0003; J2704; J1580; J3010; J1100; J7120; J2405; 87088

== ENCOUNTER → 2021-05-05 | Day surgery (SDC) | payer OTHER ==
[~2021-05-05] MED LIST changes: -CLINDAMYCIN INJ 600 MG in NA CHLORIDE 0.9% 50 ML IV SCH; -Gentamicin Inj 120 MG in NA CHLORIDE 0.9% 100 ML IV SCH; +HYDROCODONE/APAP 5/325 MG TAB ONE; +LIDOCAINE JELLY 2% 5 ML SYRINGE TOP ONE; +PHENAZOPYRIDINE 100MG TAB PO ONE; +Ringers Lactate 1,000 ML IV ONE
[2021-05-05 15:19] VITALS: O2SAT 99
[2021-05-05 20:02] VITALS: BP 118/68; TEMP 99
--- NOTE | 2021-05-06 02:50 | OP ---
Surgeon: AMY WEST Preoperative Diagnosis: Retained left ureteral stent. Postoperative Diagnosis: Retained left ureteral stent. Principal Procedure: Cystoscopy and left ureteral stent extraction. Indication For Procedure: Ms. Blair presented to the Urology Clinic with an obstructing left urete ral calculus and subsequently underwent definitive management with ureteroscopy and laser lithotripsy with stent exchange. She presented a week ago in followup for stent extraction, but had evidence of suspected urinary tract infection. Urine culture was sent and revealed enterococcus sensitive to am picillin as well as Macrobid but resistant to the fluoroquinolones. Because she was incredibly sympt omatic, she had been prescribed ciprofloxacin for broad antimicrobial coverage, but upon revelation o f the sensitivities, given her allergy to penicillin for which she does not know the degree of the re action, she was given Macrobid as the next best option. She presented today to the Urology Clinic in followup for stent extraction miserable with the indwelling ureteral stent. Attempts to remove the stent in the office were performed, but because of malfunction of the solitary equipment available wi thin the office and failure of borrowed equipment from the hospital, ureteroscopic graspers not cysto scopic graspers, the patient required hospital operative equipment in order to complete the stent ext raction today. Procedure In Detail: The patient was consented in the preoperative holding area before being transfe rred to the operative suite where local anesthesia was provided and planned. She was taking Macrobid as antimicrobial prophylaxis, but she did not take the ciprofloxacin because it made her nauseous. Pneumoboots were provided for DVT prophylaxis. She was placed supine on the operative table and then in the lithotomy position using the [place] stirrups, padded and secured appropriately. Her genita mariana were prepped using Hibiclens and she was draped in standard fashion. The case was begun using a 22-Russian rigid cystoscope to traverse the urethra and into the bladder after instilling a lidocaine Uro-Jet intraurethrally for local anesthesia. Upon entry in the bladder, the bladder was decompresse d of very cloudy appearing urine and was irrigated using normal saline. Then, the stent was grasped and delivered via the meatus with ease and with both coils intact. The patient tolerated the procedu re well. She was taken out of the lithotomy position, was allowed to move to the stretcher, and was transferred to the recovery room in good condition. Complications: None. Discharge Disposition: I have encouraged her to monitor for any signs of fever or systemic illness s uggestive of infection unresponsive to antimicrobial therapy. I requested she try to take both the c iprofloxacin and the Macrobid noting that since the stent is out, perhaps she may tolerate the Cipro without nausea, but if the nausea persists, she can skip the Cipro and simply complete the Macrobid. I recommended followup for a urine culture about 2 weeks after she completes the course of Macrobid, which she can do by dropping off a sample at the office. Subsequently, she should complete a Lithol ink metabolic profile assessment no sooner than 1 month from today stent removal, and she should foll ow up with me to discuss that result and other stone mitigation plans about 2 months from today. KRISTEN/GAEL Voice ID: [id number] Report ID: [id number]
== END | disposition home or self-care (01) ==
LOC: OR 14:20
PROVIDERS: ATTEND Urology
PROC: 0TP98DZ Removal of Intraluminal Device from Ureter, Via Natural or Artificial Opening Endoscopic (ICD-10-PCS; principal; 2021-05-05 17:30)
DX: N20.1 Calculus of ureter (principal); Z96.0 Presence of urogenital implants; Z20.822 Contact with and (suspected) exposure to COVID-19
CPT/HCPCS: 52310; U0003; J7120

== ENCOUNTER 2021-05-14 13:49 | Inpatient (IN) | payer OTHER ==
[2021-05-14 14:38] LABS: Basophils % 1.2 % (0-1.3); Hematocrit 35.6 % (36.0-45.0); Lymphocytes % 14.8 % (15.3-44.8); MPV 11.6 fL (7.6-11.3)
[2021-05-14 14:53] LABS: Albumin 2.5 g/dL (3.4-5.0); Bilirubin Direct 0.2 mg/dL (0-0.2); Bilirubin Total 0.4 mg/dL (0.2-1.0); Potassium 3.9 mmol/L (3.5-5.1); Protein, Total 5.6 g/dL (6.4-8.2)
--- NOTE | 2021-05-14 15:37 | RAD REPORT ---
EXAM DESCRIPTION: CTStone Protocol - 05/14/2021 3:18 pm CLINICAL HISTORY: . ABD PAIN COMPARISON: Abdomen Pelvis Wo Contrast dated 03/06/2021; Abdomen Pelvis W/Wo Contrast dated 021; CT ABD PELVIS W WO CONTRAST dated 01/05/2011bdomen Pelvis Wo Contrast dated 03/06/2021; Abdomen Pelvis W/Wo Contrast dated 01/19/2021; CT ABD PELVIS W WO CONTRAST dated 01/05/2011; CT ABD PELVIS W WO CONTRAST dated 12/24/2009 TECHNIQUE: Biphasic CT imaging of the abdomen and pelvis was performed with 100 ml non-ionic IV cont rast. All CT scans are performed using dose optimization technique as appropriate and may include automated exposure control or mA/KV adjustment according to patient size. FINDINGS: Lower chest: Basilar scarring. Multi-vessel coronary artery disease. Enteric valve calcifi cations. Liver: New low-density lesion in segment 4 of the liver measuring 18 millimeters. This was not presen t on the CT from 03/06/2021. Biliary: No biliary ductal dilatation. Stomach: No significant focal abnormality. Duodenum: No significant focal abnormality. Pancreas: No significant abnormality. Spleen: No significant abnormality. Adrenal: No suspicious lesions. Kidney/ureter: Persistent left-sided hydroureteronephrosis. No ureteral stone is seen. There is a sto ne within the bladder. This measures 3 millimeters. A 9 mm right lower pole renal stone is seen. Othe r smaller renal calculi noted on the left. Intermediate attenuation subcentimeter left renal lesion n oted which is likely a hemorrhagic cyst. Retroperitoneum: No retroperitoneal adenopathy. Vascular: No aneurysm. Atherosclerosis . Bowel: No significant focal abnormality. Diverticulosis without diverticulitis. Peritoneum: No ascites or free air. Bladder: Mild bladder wall thickening which may indicate cystitis. 3 mm stone in the bladder. Reproductive: No adnexal masses. Bones: No acute fracture. Other: n/a IMPRESSION: Left-sided hydroureteronephrosis without obstructing stone. There is, however, a [address] one in the bladder. This may have recently passed. Bladder wall thickening which is nonspecific and m ay indicate cystitis. New low-density lesion along segment 4 liver. Though frequently seen with focal fatty infiltration, a lesion is new which would be unlikely within a 2 month interval. Recommend nonemergent liver protoco l MRI.
[2021-05-14 15:54] LABS: Urine Appearance TURBID (Clear); Urine Bilirubin NEGATIVE (Negative); Urine Blood 2+ (Negative); Urine Color YELLOW (Yellow); Urine Glucose NEGATIVE (Negative); Urine Protein 2+ (Negative); Urine Urobilinogen 0.2 mg/dL (0.2-1.0); Urine pH 5.5 (5.0-7.0)
--- NOTE | 2021-05-14 16:01 | ER ---
Nurse's Notes [facility] Name: Guerita Long Age: 70 yrs Sex: Female : 1950 Arrival Date: 05/14/2021 Time: 13:53 Bed 7 Private MD: Diagnosis: Other acute kidney failure Presentation: 05/14 13:54 Chief complaint: EMS states: DR CALLED HER AT HOME TO TELL HER SHE WAS IN TOTAL KIDNEY bp FAILURE AND ADVISE HER TO GO TO THE ER. Coronavirus screen: At this time, the client does not indicate any symptoms associated with coronavirus-19. Ebola Screen: No symptoms or risks identified at this time. Initial Sepsis Screen: Does the patient meet any 2 criteria? No. Patient's initial sepsis screen is negative. Does the patient have a suspected source of infection? No. Patient's initial sepsis screen is negative. Risk Assessment: Do you want to hurt yourself or someone else? Patient reports no desire to harm self or others. Onset of symptoms is unknown. Care prior to arrival: Medication(s) given: Normal saline infusion, 500 mL, IV initiated. 22 GA, in the right forearm. 13:54 Method Of Arrival: EMS: [facility] bp 13:54 Acuity: RICK 3 bp Triage Assessment: 13:55 General: Appears in no apparent distress. uncomfortable, well groomed, Behavior is bp cooperative, appropriate for age, drowsy. Pain: Complains of pain in left flank and right flank. EENT: No deficits noted. Neuro: No deficits noted. Cardiovascular: No deficits noted. Respiratory: No deficits noted. GI: No signs and/or symptoms were reported involving the gastrointestinal system. : Reports pain in bilateral flank(s). Derm: No signs and/or symptoms reported regarding the dermatologic system. Historical: - Allergies: 13:55 loperamide; bp 13:55 PENICILLINS; bp - Home Meds: 13:55 aspirin 81 mg oral tab [Active]; biotin oral [Active]; Celecoxib Oral [Active]; bp cetirizine oral [Active]; metoprolol tartrate Oral [Active]; Diltiazem Oral [Active]; - PMHx: 13:55 CVA; High Cholesterol; Hypertensive disorder; bp - PSHx: 13:55 kidney stent; bp - Immunization history:: Adult Immunizations unknown. - Social history:: Smoking status: Patient denies any tobacco usage or history of. Screenin:58 Abuse screen: Denies threats or abuse. Denies injuries from another. Nutritional bp screening: No deficits noted. Tuberculosis screening: No symptoms or risk factors identified. Fall Risk None identified. Assessment: 13:58 General: SEE TRIAGE NOTE. bp 15:00 Reassessment: No changes from previously documented assessment. Patient and/or family bp updated on plan of care and expected duration. Pain level reassessed. 16:00 Reassessment: ADMIT INITIATED. bp 17:00 Reassessment: No changes from previously documented assessment. Patient and/or family bp updated on plan of care and expected duration. Pain level reassessed. ADMIT IN PROCESS. 18:00 Reassessment: PT IN MRI. bp 19:50 Reassessment: Patient and/or family updated on plan of care and expected duration. Pain ea level reassessed. Patient is alert, oriented x 3, equal unlabored respirations, skin warm/dry/pink. Pt admitted to second floor, report given to receiving nurse. Pt left ED via stretcher per tech, tolerating well. Vital Signs: 13:54 BP 99 / 70; Pulse 87; Resp 17; Temp 97.5; Pulse Ox 96% ; bp 15:00 BP 93 / 59; Pulse 66; Resp 17; Pulse Ox 100% ; bp 16:00 BP 94 / 53; Pulse 70; Resp 16; Pulse Ox 99% ; bp 17:00 BP 101 / 62; Pulse 71; Resp 17; Pulse Ox 100% ; bp 18:00 BP 95 / 71; Pulse 74; Resp 17; Pulse Ox 98% ; bp ED Course: 13:53 Patient arrived in ED. bp 13:55 Triage completed. bp 13:55 Arm band placed on. bp 13:56 Claribel Garcia FNP-C is PHCP. kb 13:56 Wang Latif MD is Attending Physician. kb 13:58 Patient has correct armband on for positive identification. Bed in low position. Call bp light in reach. Side rails up X2. Adult w/ patient. 13:58 Maintain EMS IV. Dressing intact. Good blood return noted. Site clean \\T\\ dry. Gauge \\T\\ bp site: 22 R FA. 14:12 Yoel Logan, RN is Primary Nurse. bp 14:28 Basic Metabolic Panel Sent. 5 14:28 CBC with Diff Sent. mh5 14:28 Hepatic Function Sent. 5 15:18 CT Stone Protocol In Process Unspecified. EDOH 15:36 Urinalysis Sent. 5 15:40 Urine collected: clean catch specimen, GROSS. [facility] 15:41 Warm blanket given. Pillow given. quality assurance monitor body on. Pulse ox on. NIBP on. [facility] 16:01 Ajay Crowley is Hospitalizing Provider. kb 17:10 COVID-19 : Document "Date of Symptom Onset" if Symptomatic. Sent. bp 19:51 No provider procedures requiring assistance completed. Patient admitted, IV remains in ea place. Administered Medications: No medications were administered Outcome: 16:01 Decision to Hospitalize by Provider. kb 19:51 Admitted to Med/surg accompanied by tech, via stretcher, with chart, Report called to ea Receiving nurse on second floor 19:51 Condition: stable 19:51 Instructed on the need for admit, Demonstrated understanding of instructions. 19:52 Patient left the ED. ea Signatures: Dispatcher [employer] EDClaribel Cox, TELEPHONE QUOTATION CLERK-C TELEPHONE QUOTATION CLERK-Aleshia Parmar [facility] Ameena Hinds, RN RN Yoel Martinez, RN RN bp
[2021-05-14 16:02] LABS: Urine Microscopic Reflex ORDER UMIC
--- NOTE | 2021-05-14 16:02 | EDPHYS ---
Physician Documentation [facility] Name: Guerita Long Age: 70 yrs Sex: Female : 1950 Arrival Date: 05/14/2021 Time: 13:53 Bed 7 Private MD: ED Physician Wang Latif HPI: 05/14 16:02 This 70 yrs old Female presents to ER via EMS with complaints of RENAL kb FAILURE. 16:02 The patient presents with abdominal pain. Onset: The symptoms/episode began/occurred 1 kb month(s) ago. The symptoms do not radiate. Associated signs and symptoms: Pertinent positives: diarrhea. The symptoms are described as constant. Modifying factors: The symptoms are alleviated by nothing, the symptoms are aggravated by nothing. Severity of pain: At its worst the pain was mild moderate in the emergency department the pain is unchanged. The patient has not experienced similar symptoms in the past. The patient has been recently seen by a physician:. Pt reports diarrhea, abd pain and weakness for a month. Went to PCP yesterday for this and had blood work done. 's office called today and told her to come to the ER liz because her kidneys were failing. Historical: - Allergies: 13:55 loperamide; bp 13:55 PENICILLINS; bp - Home Meds: 13:55 aspirin 81 mg oral tab [Active]; biotin oral [Active]; Celecoxib Oral [Active]; bp cetirizine oral [Active]; metoprolol tartrate Oral [Active]; Diltiazem Oral [Active]; - PMHx: 13:55 CVA; High Cholesterol; Hypertensive disorder; bp - PSHx: 13:55 kidney stent; bp - Immunization history:: Adult Immunizations unknown. - Social history:: Smoking status: Patient denies any tobacco usage or history of. ROS: 16:01 Constitutional: Negative for fever, chills, and weight loss. kb 16:01 Abdomen/GI: Positive for abdominal pain, diarrhea, Negative for nausea, vomiting. 16:01 Neuro: Positive for weakness. 16:01 All other systems are negative. Exam: 16:01 Constitutional: This is a well developed, well nourished patient who is awake, alert, kb and in no acute distress. Head/Face: Normocephalic, atraumatic. ENT: Moist Mucous membranes Respiratory: Respirations even and unlabored. No increased work of breathing, no retractions or nasal flaring. Skin: Warm, dry with normal turgor. Normal color. MS/ Extremity: Pulses equal, no cyanosis. Neurovascular intact. Full, normal range of motion. Neuro: Awake and alert, GCS 15, oriented to person, place, time, and situation. Moves all extremities. Normal gait. Psych: Awake, alert, with orientation to person, place and time. Behavior, mood, and affect are within normal limits. 16:01 Abdomen/GI: Inspection: abdomen appears normal, Bowel sounds: normal, in all quadrants, Palpation: soft, in all quadrants, mild abdominal tenderness, in the right lower quadrant and left lower quadrant. Vital Signs: 13:54 BP 99 / 70; Pulse 87; Resp 17; Temp 97.5; Pulse Ox 96% ; bp 15:00 BP 93 / 59; Pulse 66; Resp 17; Pulse Ox 100% ; bp 16:00 BP 94 / 53; Pulse 70; Resp 16; Pulse Ox 99% ; bp 17:00 BP 101 / 62; Pulse 71; Resp 17; Pulse Ox 100% ; bp 18:00 BP 95 / 71; Pulse 74; Resp 17; Pulse Ox 98% ; bp MDM: 13:57 Patient medically screened. kb 15:24 Data reviewed: vital signs, nurses notes. Data interpreted: Pulse oximetry: on room air kb is 96 %. Interpretation: normal. 16:01 Counseling: I had a detailed discussion with the patient and/or guardian regarding: the kb historical points, exam findings, and any diagnostic results supporting the discharge/admit diagnosis, lab results, radiology results, the need for further work-up and treatment in the hospital. 05/14 14:02 Order name: Basic Metabolic Panel; Complete Time: 15:00 kb 05/14 14:02 Order name: CBC with Diff kb 05/14 14:02 Order name: Hepatic Function; Complete Time: 15:00 kb 05/14 14:02 Order name: Lipase; Complete Time: 15:00 kb 05/14 15:34 Order name: Urinalysis; Complete Time: 16:15 mt 05/14 15:45 Order name: COVID-19 : Document "Date of Symptom Onset" if Symptomatic. kb 05/14 14:02 Order name: IV Saline Lock; Complete Time: 14:13 kb 05/14 14:02 Order name: Labs collected and sent; Complete Time: 14:28 kb 05/14 15:01 Order name: CT Stone Protocol; Complete Time: 15:44 kb 05/14 16:03 Order name: Urine Microscopic Only; Complete Time: 16:15 [facility] 05/14 16:12 Order name: Urine Culture [facility] 05/14 17:02 Order name: SARS-COV-2 RT PCR; Complete Time: 17:04 EDCO 05/14 18:33 Order name: CBC Smear Scan [facility] 05/14 14:02 Order name: Urine Dipstick-Ancillary (obtain specimen); Complete Time: 15:36 kb Administered Medications: No medications were administered Disposition: 05/15 17:01 Co-signature as Attending Physician, Wang Latif MD I agree with the assessment and kdr plan of care. Disposition Summary: 05/14/21 16:01 Hospitalization Ordered Hospitalization Status: Inpatient Admission kb Provider: Ajay Crowley Location: Telemetry/[facility] (Inpatient) kb Condition: Stable kb Problem: new kb Symptoms: are unchanged kb Bed/Room Type: Standard Room Assignment: 210(05/14/21 18:42) mt Diagnosis - Other acute kidney failure kb Forms: - Medication Reconciliation Form kb - SBAR form kb Signatures: Dispatcher [employer] Claribel Cox, BRYNC SCIENTIFIC DATABASE CURATOR-Ckb Wang Latif MD MD kdr Thompson, Moriah mt Peltier, Brian, JORDEN RN Dao Burns la3 Corrections: (The following items were deleted from the chart) 05/14 16:07 15:46 CORONAVIRUS ordered. [facility] 18:42 16:01 kb ky
[2021-05-14 16:12] LABS: Urine Bacteria 20-50 /HPF (<20); Urine Mucus 2+ /HPF (NONE SEEN)
--- NOTE | 2021-05-14 18:18 | P.HP ---
Certification for Inpatient Patient admitted to: Inpatient With expected LOS: >2 Midnights Patient will require the following post-hospital care: Home Health Services Practitioner: I am a practitioner with admitting privileges, knowledge of patient current condition, hospital course, and medical plan of care. Services: Services provided to patient in accordance with Admission requirements found in Title 42 Section 412.3 of the Code of Federal Regulations Patient History Date of Service: 05/14/21 Primary Care Provider: Dr. An Reason for admission: Renal failure/ UTI History of Present Illness: CT Stone Protocol - 05/14/2021 3:18 pm CLINICAL HISTORY: ABD PAIN COMPARISON: Abdomen Pelvis Wo Contrast dated 03/06/2021; Abdomen Pelvis W/Wo Contrast dated 01/19/2021; CT ABD PELVIS W WO CONTRAST dated 01/05/2011bdomen Pelvis Wo Contrast dated 03/06/2021; Abdomen Pelvis W/Wo Contrast dated 01/19/2021; CT ABD PELVIS W WO CONTRAST dated 01/05/2011; CT ABD PELVIS W WO CONTRAST dated 12/24/2009 FINDINGS: Lower chest: Basilar scarring. Multi-vessel coronary artery disease. Enteric valve calcifications. Liver: New low-density lesion in segment 4 of the liver measuring 18 millimeters. This was not present on the CT from 03/06/2021. Biliary: No biliary ductal dilatation. Stomach: No significant focal abnormality. Duodenum: No significant focal abnormality. Pancreas: No significant abnormality. Spleen: No significant abnormality. Adrenal: No suspicious lesions. Kidney/ureter: Persistent left-sided hydroureteronephrosis. No ureteral stone is seen. There is a stone within the bladder. This measures 3 millimeters. A 9 mm right lower pole renal stone is seen. Other smaller renal calculi noted on the left. Intermediate attenuation subcentimeter left renal lesion noted which is likely a hemorrhagic cyst. Retroperitoneum: No retroperitoneal adenopathy. Vascular: No aneurysm. Atherosclerosis. Bowel: No significant focal abnormality. Diverticulosis without diverticulitis. Peritoneum: No ascites or free air. Bladder: Mild bladder wall thickening which may indicate cystitis. 3 mm stone in the bladder. Reproductive: No adnexal masses. Bones: No acute fracture. IMPRESSION: Left-sided hydroureteronephrosis without obstructing stone. There is, however, a 3 mm stone in the bladder. This may have recently passed. Bladder wall thickening which is nonspecific and may indicate cystitis. New low-density lesion along segment 4 liver. Though frequently seen with focal fatty infiltration, a lesion is new which would be unlikely within a 2 month interval. Recommend nonemergent liver protocol MRI. The patient had gone to her primary care physician to be evaluated for symptoms involving her kidney stones and unanticipated weight loss. The lab work that was returned showed her creatinine and BUN to be elevated. The physician asked her to come to the ER. She is a 70-year-old female who has been ill over the past 30 days. She has had a history of kidney stones and was seen for a left kidney stone during this time. She had a stent placement on the left that remained for approximately 2 weeks. She was very inactive while the stent was in place and has shown no increase in activity after the stent removal a little more than a week ago. During that time she experienced a 30 pound weight loss and has become weak and lethargic. Her activities have consisted of getting up to go to the bathroom 2 or 3 times per day. In addition she has been being treated for a infection of her nasal sinus as well as for her kidney stones. She presents today because of her weakness and decreased kidney function. Her labs reveal a decrease in kidney function with a BUN of 57 and a creatinine of 3.84. Her urine required dilution to test and is positive for blood and positive for bacteria. Allergies loperamide Allergy (Verified 04/13/21 10:35) Anaphylaxis Penicillins Allergy (Verified 04/13/21 10:35) Rash levofloxacin [From Levaquin] Adverse Reaction (Verified 04/13/21 10:35) Nightmares Home medications list reviewed: Yes Home Medications: Aspirin [Aspirin EC 81 MG] 81 mg PO ,08/02/18 Biotin 10,000 mcg PO ,,08/02/18 Celecoxib [Celebrex] 200 mg PO DAILY 08/02/18 Folic Acid 1 mg PO DAILY 08/02/18 Metoprolol Succinate [Toprol Xl*] 50 mg PO BID 08/02/18 Ubidecarenone/Vit E Acet [Co Q-10 100 mg Softgel] 1 each PO ,,08/02/18 Venlafaxine HCl [Venlafaxine HCl ER] 75 mg PO DAILY 08/02/18 dilTIAZem HCl [Diltiazem 24Hr ER (Xr)] 180 mg PO [id number] 08/02/18 methylPREDNISolone [Medrol] 4 mg PO DAILY 08/02/18 Calcium Carbonate [Calcium] 1 tab PO DAILY 03/01/21 Cholecalciferol (Vitamin D3) [Vitamin D3] 1 cap PO M,W,F 03/01/21 Fenofibrate [Tricor*] 1 tab PO M,W,F 03/01/21 Lifitegrast [Xiidra] 1 gtt EACH EYE BID 03/01/21 Methotrexate [Methotrexate*] 3 tab PO SEECOM 03/01/21 Niacin 1 tab PO M,W,F 03/01/21 [place]-3/Dha/Epa/Fish Oil [Fish Oil 1,000 mg Softgel] 1 cap PO M,W,F 03/01/21 Potassium Gluconate [Potassium] 1 tab PO DAILY 03/01/21 Red Yeast Rice 1 cap PO M,W,F 03/01/21 Vitamin E 1 cap PO M,W,F 03/01/21 hydroCHLOROthiazide [Hydrochlorothiazide] 1 tab PO M,W,F 03/01/21 Acetaminophen [Tylenol Extra Strength] 1 tab PO DAILY 03/07/21 Ondansetron [Zofran (Odt)*] 4 mg PO Q6H PRN 4 Days #10 tab 03/10/21 Oxybutynin Chloride [Oxybutynin Chloride ER] 10 mg PO BEDTIME 04/09/21 - Past Medical/Surgical History Diabetic: No -: Rheumatoid arthritis -: Hypercholesteremia -: UTI -: Renal failure -: CVA -: TIA -: HTN -: Kidney Stones -: Ureteral stent placement -: Melanoma Surgery -: Sinus Surgery -: Hysterectomy -: Right foot surgery -: Right Ankle surgery Psychosocial/ Personal History: Retired, lives at home with - Family History Mother -: Heart disease Father -: Hypertension, Stroke - Social History Smoking Status: Never smoker Alcohol use: No CD- Drugs: No Caffeine use: No Place of Residence: Home Review of Systems 10-point ROS is otherwise unremarkable (All other symptoms reviewed and negative except as documented) General: Weakness, Other (Ongoing fatigue) Eyes: Unremarkable ENT: Unremarkable Respiratory: Unremarkable Cardiovascular: Unremarkable Gastrointestinal: Nausea, Other (Lack of appetite) Genitourinary: Other (Cloudy urine noticed) Musculoskeletal: Atrophy (Significant wasting) Integumentary: Unremarkable Neurological: Unremarkable Lymphatics: Unremarkable Physical Examination - Physical Exam General: Alert, In no apparent distress, Oriented x3, Cooperative HEENT: Atraumatic, Normocephalic, PERRLA Neck: Supple, 2+ carotid pulse no bruit Respiratory: Clear to auscultation bilaterally, Normal air movement Cardiovascular: No edema, Normal pulses, Regular rate/rhythm Capillary refill: Brisk Gastrointestinal: Soft and benign, Non-distended Musculoskeletal: No clubbing, No swelling, No contractures, No erythema, No tenderness Integumentary: No rashes, No breakdown Neurological: Normal speech, Normal strength at 5/5 x4 extr, Normal tone External genitalia: Deferred Rectal: Deferred - Studies Laboratory Data (last 24 hrs) 05/14/21 14:22: WBC 6.90, Hgb 11.5 L, Hct 35.6 L, Plt Count 254 05/14/21 14:22: Sodium 133 L, Potassium 3.9, BUN 57 H, Creatinine 3.84 H, Glucose 114 H, Total Bilirubin 0.4, AST 11 L, ALT 11 L, Alkaline Phosphatase 79, Lipase 148 Assessment and Plan - Plan Assessment: Renal failure Recent Kidney Stone UTI New lesion noted in liver Weight loss Weakness HTN Plan: Renal failure: Nephrology Consult, NS 125/hr, uric acid, ckmb, I&O Recent Kidney Stone: No current symptoms, no stone in ureter. UTI: Rocephin 1 gm QD x 5. Monitor for any developing s/s of infection, Repeat UA New lesion noted in liver: MRI of liver to evaluate 18mm lesion Weight loss: Encourage eating, monitor intake. Weakness: Fall precautions. Physical therapy evaluation. HTN: Continue home medications. DVT PPx: Lovenox 40mg SQ CODE STATUS: Do not Resuscitate Discharge Plan: Home Plan to discharge in: Unknown - Advance Directives Does patient have a Living Will: No Does patient have a Durable POA for Healthcare: No - Code Status/Comfort Care Code Status Assessed: Yes Code Status: Do Not Attempt Resuscitat Critical Care: No Time Spent Managing Pts Care (In Minutes): 70
[2021-05-14 18:33] LABS: Blood Morphology Comment NOT SEEN (NOT SEEN); Platelet Estimate ADEQ; White Blood Cell Scan OK (OK)
--- NOTE | 2021-05-14 19:53 | RAD REPORT ---
EXAM DESCRIPTION: MRI - Abdomen Wo Cont - 05/14/2021 6:58 pm CLINICAL HISTORY: Liver Lesion (see CT) COMPARISON: No comparisons FINDINGS: The lesion along segment 4 noted on the same-day CT is again identified and measures appro ximately 15 millimeters. There is loss of signal on the out of phase T1 consistent with intrahepatic fat. The lesion is intermediate T2 hyperintensity. No contrast administered to evaluate for enhanceme nt. The vessels course through the lesion without appreciable mass effect which is more typical of a benign process. Left-sided hydronephrosis again noted. Tiny right renal cyst. No pancreatic lesions identified. The s pleen is unremarkable. Visualized bowel is unremarkable. IMPRESSION: Lesion along segment 4 of the liver with predominantly benign imaging features favored t o represent focal nodular steatosis. The mild T2 hyperintense signal and interval appearance since e prior CTs, however, are suspicious enough that a 3 month follow-up CT or MRI is recommended.
[2021-05-14] MEDS ORDERED: ACETAMINOPHEN 500 MG TAB PO PRN (22:27)
[2021-05-14] MEDS ORDERED: ONDANSETRON 4 MG/2 ML VIAL IV PRN (22:27)
[2021-05-14 22:49] VITALS: BMI 18.1
[2021-05-14] MEDS: NA CHLORIDE 0.9% 1,000 ML IV SCH (22:59)
[2021-05-14] MEDS: METOPROLOL XL 50 MG TAB PO SCH (22:59)
[2021-05-15 00:31] LABS: Urine Appearance TURBID (Clear); Urine Bilirubin NEGATIVE (Negative); Urine Blood 2+ (Negative); Urine Color YELLOW (Yellow); Urine Glucose NEGATIVE (Negative); Urine Protein 1+ (Negative); Urine Urobilinogen 0.2 mg/dL (0.2-1.0); Urine pH 5.5 (5.0-7.0)
[2021-05-15 00:32] LABS: Urine Microscopic Reflex ORDER UMIC
[2021-05-15 00:37] LABS: Urine Bacteria >50 /HPF (<20); Urine Mucus 1+ /HPF (NONE SEEN)
[2021-05-15 06:29] LABS: Absolute Lymphocytes (CBC) 1.8 K/uL (0.7-4.9); Basophils % 0.7 % (0-1.3); Hematocrit 32.1 % (36.0-45.0); Lymphocytes % 27.3 % (15.3-44.8); MPV 11.7 fL (7.6-11.3)
[2021-05-15 06:31] LABS: Albumin 2.4 g/dL (3.4-5.0); Bilirubin Total 0.4 mg/dL (0.2-1.0); Potassium 3.2 mmol/L (3.5-5.1); Protein, Total 5.5 g/dL (6.4-8.2); Uric Acid 14.9 mg/dL (2.6-6.0)
[2021-05-15] MEDS: METOPROLOL XL 50 MG TAB PO SCH (06:32)
[2021-05-15] MEDS: NA CHLORIDE 0.9% 1,000 ML IV SCH ×3 (06:34→22:45)
[2021-05-15] MEDS: VENLAFAXINE HCL 75 MG TABLET PO SCH (08:35)
[2021-05-15] MEDS: ENOXAPARIN 30 MG/0.3 ML SQ SCH (08:37)
[2021-05-15] MEDS ORDERED: methylPREDNISolone 4 MG TAB PO SCH (09:00)
[2021-05-15] MEDS ORDERED: POTASSIUM 25 MEQ EFFERV TAB PO ONE (09:00)
[2021-05-15] MEDS ORDERED: DILTIAZEM HCL 120 MG SR CAP PO SCH (09:00)
[2021-05-15] MEDS: CEFTRIAXONE 1 GM/NS 50 ML 1 GM/50 ML BAG IV SCH (10:21)
[2021-05-15] MEDS ORDERED: NA CHLORIDE 0.9% 500 ML IV ONE (10:26)
[2021-05-15 10:29] LABS: UR PROTEIN 48.9 mg/dL (<11.9); Urine Protein/Creatinine Ratio 0.92 ratio (<0.15)
[2021-05-15 11:23] LABS: Blood Morphology Comment NOT SEEN (NOT SEEN); Platelet Estimate ADEQ
--- NOTE | 2021-05-15 11:46 | CON ---
Date of Consultation: 05/15/2021 Reason For Consultation: Elevated BUN and creatinine. History Of Present Illness: This is a pleasant 70-year-old female with significant past medical hist ory of rheumatoid arthritis, hypertension, TIA, nephrolithiasis. The patient recently had a stent pl acement on the left side 4 weeks ago. The patient after that felt uncomfortable with persistent pain . For that reason, visited with her Urology. The patient last week undergone removal of her stent. The patient continued to have nausea and vomiting with diarrhea, worsening in her condition. For th at reason, the patient reported to the hospital. Upon arrival to the hospital, the patient found to have elevation in BUN and creatinine. For that reason, we have been consulted and the patient was ad mitted. Upon arrival; creatinine 3.8 with GFR of 12. Today; creatinine 2.7 with GFR of 17. In February ; creatinine 0.6 with GFR above 90. The patient admitted that she had been taking Advil 3-4 tablets daily for the last 2 weeks. Otherwise, no other insulting medications. Again, the patient found to have gastroenteritis with diarrhea and nausea, vomiting. Here in the hospital, also the patient foun d to have orthostatic hypotension. Past Medical History: Includes; 1.Hypertension. 2.TIA. 3.CVA. 4.Nephrolithiasis, status post stone extraction. 5.Rheumatoid arthritis. Allergies: TO LOPERAMIDE, PENICILLIN, AND LEVAQUIN. Home Medications: Include aspirin, Biotin, Celebrex, folic acid, metoprolol, Effexor, diltiazem, met ronidazole, calcium carbonate, cholecalciferol, fenofibrate, methotrexate, niacin, [place], KCl, vitami n D, hydrochlorothiazide, Tylenol, Zofran, oxybutynin. Past Surgical History: Includes foot surgery, ankle surgery, sinus surgery, hysterectomy, stent plac ement on the left side with removal. Family History: Positive for CAD, hypertension. Social History: Denied smoking, denied drinking, denied drugs abuse. Review of Systems: Head and Neck: No red eye. Has lightheaded. GI: Has nausea, vomiting. Has diarrhea. : Has flank pain on the left side with dysuria and polyuria. Abdominal pain. 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 Respiratory: No shortness of breath. Cardiovascular: Has dizziness, orthostatic blood pressure. Neuro: Has lightheaded. Had dizziness. No fall. Musculoskeletal: Generalized fatigue. Endocrine: Has polydipsia. Physical Examination: Vital Signs: When I saw the patient; blood pressure of 95/51, pulse of 63, afebrile. The patient villar d good urine output of 350. Chest: Clear to auscultation. Heart: S1, S2. Regular. Abdomen: Soft. Mild tenderness. No guarding or rebound. Extremities: No edema. Neurologic: Alert. No focality. Laboratory Data: Sodium 137, potassium 3.2, bicarb 24, BUN 51, creatinine 2.7, GFR of 17, calcium 8. 9, uric acid 14.9, albumin 2.4, corrected calcium is 10.5. Urinalysis specific; gravity of 1.010, WB C too numerous to count, RBC of 20. Urine culture still pending. CT abdomen and pelvis showing a le ft-sided hydronephrosis without obstruction, 3 mm stone in the bladder and maybe recently passed, bia dder wall thickening. Current Medications: The patient on include; 1.Ceftriaxone. 2.Lovenox. 3.Diltiazem. 4.Metoprolol 50 b.i.d. 5.Effexor. 6.Zofran. 7.Solu-Medrol. 8.KCl. Assessment And Plan: 1.Acute kidney injury secondary to obstructive uropathy/poor perfusion ATN secondary to low blood pr essure, superimposed with nonsteroidal use, nonoliguric. No hyperkalemia or acidosis. I am going to go ahead and reinforce to avoid any nonsteroid, discontinue Celebrex, discontinue Advil. Decrease m etoprolol to 25 b.i.d., discontinue diltiazem, bolus the patient with 500 of normal saline and we juan l continue hydration. We will consult Urology to evaluate this. The residual obstruction could be b ecause of passing kidney stone that seen in the bladder currently. We will follow up. We will consi rosa maria repeating ultrasound down in the road. Also, we will consider renal scan if persists. 2.Hypertension, currently low blood pressure. Hold diltiazem, decrease metoprolol, and we will star t hydration. 3.Rheumatoid arthritis. Given the low blood pressure and the patient is steroid dependent, I am goi ng to go ahead and put the patient on stress dose of dexamethasone total of 12 mg and we will follow up the patient. 4.Hypokalemia. We will supplement. We will check for magnesium level. CLARA Voice ID: [id number] Report ID: [id number]
[2021-05-15] MEDS ORDERED: NA CHLORIDE 0.9% 250 ML IV ONE (12:32)
--- NOTE | 2021-05-15 14:18 | P.PN ---
Subjective Date of Service: 05/15/21 Primary Care Provider: Dr. An Chief Complaint: Renal failure/ UTI Patient reports feeling much better today. She ate breakfast. Her blood pressure running low despite 750 NS bolus. She reports intermittent diarrhea which usually occur with feeding. She denies abdominal pain. Physical Examination - Vital Signs Temperature: 97.7 F Blood Pressure: 95/51 Pulse: 63 Respirations: 17 Pulse Ox (%): 100 - Physical Exam General: Alert, In no apparent distress, Oriented x3 HEENT: Mucous membr. moist/pink Neck: JVD not distended Respiratory: Clear to auscultation bilaterally, Normal air movement Cardiovascular: No edema, Regular rate/rhythm, Normal S1 S2 Gastrointestinal: Normal bowel sounds, Soft and benign, Non-distended, No tenderness Musculoskeletal: No swelling, No tenderness Integumentary: No rashes, No erythema Neurological: Normal strength at 5/5 x4 extr Lymphatics: No axilla or inguinal lymphadenopathy - Studies Laboratory Data (last 24 hrs) 05/14/21 14:22: WBC 6.90, Hgb 11.5 L, Hct 35.6 L, Plt Count 254 05/14/21 14:22: Sodium 133 L, Potassium 3.9, BUN 57 H, Creatinine 3.84 H, Glucose 114 H, Total Bilirubin 0.4, AST 11 L, ALT 11 L, Alkaline Phosphatase 79, Lipase 148 Assessment And Plan - Current Problems (Diagnosis) (1) Acute renal failure Current Visit: No Status: Acute (2) Nephrolithiasis Current Visit: No Status: Acute (3) Rheumatoid arthritis Current Visit: No Status: Acute (4) S/P ureteral stent placement Current Visit: No Status: Acute (5) UTI (urinary tract infection) Current Visit: No Status: Acute (6) Liver lesion Current Visit: Yes Status: Acute (7) Severe protein-calorie malnutrition Current Visit: Yes Status: Acute - Plan Renal failure/hypovolemic shock: Seen by nephrology. Continue IV hydration with NS, NS bolus as needed. Monitor I&O. Renal function is improving with IV hydration. Obtain echocardiogram. Nephrolithiasis/status post urethral stent and removal: Patient has persistent left hydroureteronephrosis( Not new). No current symptoms, no stone in ureter. Will consult urology to follow Complicated UTI: Continue Rocephin 1 gm QD x 5. Follow urine culture. New lesion noted in liver: MRI of liver suggest on noted last steatosis. Patient will need follow up MRI as an outpatient within 3 months. Weight loss: Encourage eating. Dietitian consult. Weakness: Fall precautions. Physical therapy evaluation. HTN: Continue home medications. Time Spent Managing PTS Care (In Minutes): 40
[2021-05-15] MEDS ORDERED: NA CHLORIDE 0.9% 1,000 ML IV ONE (17:10)
[2021-05-15] MEDS: dexAMETHasone 4 MG/ML VIAL IV SCH (17:15)
[2021-05-15] MEDS: METOPROLOL XL 25 MG TAB PO SCH (17:19)
[2021-05-15] MEDS ORDERED: VANCOMYCIN 1 GM/VIAL ONE (17:54)
[2021-05-15] MEDS ORDERED: VANCOMYCIN 1 GM in NA CHLORIDE 0.9% 500 ML IVPB SCH (18:00)
[2021-05-16] MEDS: dexAMETHasone 4 MG/ML VIAL IV SCH ×3 (00:18→20:23)
[2021-05-16] MEDS: METOPROLOL XL 25 MG TAB PO SCH ×2 (05:44→18:04)
[2021-05-16] MEDS: NA CHLORIDE 0.9% 1,000 ML IV SCH (05:53)
[2021-05-16 06:15] LABS: Absolute Lymphocytes (CBC) 0.9 K/uL (0.7-4.9); Basophils % 0.3 % (0-1.3); Hematocrit 28.9 % (36.0-45.0); Lymphocytes % 19.6 % (15.3-44.8); MPV 11.2 fL (7.6-11.3); RBC Red Blood Cell Count 3.39 M/uL (3.86-4.86)
[2021-05-16 06:31] LABS: Albumin 2.1 g/dL (3.4-5.0); Phosphorus 2.8 mg/dL (2.5-4.9); Potassium 3.8 mmol/L (3.5-5.1)
[2021-05-16] MEDS: ENOXAPARIN 30 MG/0.3 ML SQ SCH (08:02)
[2021-05-16] MEDS: CEFTRIAXONE 1 GM/NS 50 ML 1 GM/50 ML BAG IV SCH (08:02)
[2021-05-16] MEDS: VENLAFAXINE HCL 75 MG TABLET PO SCH (08:02)
[2021-05-16] MEDS ORDERED: TAMSULOSIN 0.4 MG SR CAP PO SCH (09:00)
[2021-05-16] MEDS ORDERED: POTASSIUM CL SA 10 MEQ TAB PO ONE (11:00)
--- NOTE | 2021-05-16 11:28 | PN ---
Date of Progress Note: 05/16/2021 Subjective: The patient was admitted with acute kidney injury secondary to prerenal, secondary to GI loss, superimposed with obstructive uropathy, toxic ATN secondary to UTI. The patient's after hydration kidney function has been improved. Physical Examination: Vital Signs: Blood pressure 134/77, pulse of 68, afebrile. Chest: Clear to auscultation. Heart: S1, S2. Regular. Abdomen: Soft, nontender. Extremities: No edema. Neurologic: Alert. No focality. Laboratory Data: WBC 4.7, H and H 9.5/28.9. Sodium 145, potassium 3.8, bicarb 23, BUN 29, creatinine 1.1, GFR of 45, calcium 7.4, phosphorus 2.8. Current Medications: The patient on include ceftriaxone, vancomycin, metoprolol 25 b.i.d., Effexor, dexamethasone 4 mg every 8 hours. Assessment And Plan: 1. Acute kidney injury, multifactorial, secondary to poor perfusion ATN/obstructive uropathy/toxic ATN, superimposed with Advil use, recovered, resolved. The residual on the hydronephrosis needs to be follow up as outpatient in 4-6 weeks with repeated image. If continues, the patient may need renal scan to evaluate if it is nonfunction hydro. 2. Hypertension, controlled, optimal. Keep current medications. 3. Rheumatoid arthritis, steroid dependent. Yesterday, we started the patient on stress dose of dexamethasone, responded well. I am going to go ahead and change it to 2 mg b.i.d. Okay from the Renal standpoint to switch back to her maintenance dose at home and we will monitor. 4. Urinary tract infection. Continue current treatment. 5. Nephrolithiasis. We will follow up the stone analysis for the patient. 6. Hypokalemia, status post supplement, resolved. Time spent examining the patient, [id number], placing orders, discussed the case with the patient and the by bedside, discussed the case with our hospitality team member including nursing and hospitalist 35 minutes. CLARA Voice ID: [id number] Report ID: [id number]
--- NOTE | 2021-05-16 13:29 | P.PN ---
Subjective Date of Service: 05/16/21 Primary Care Provider: Dr. An Chief Complaint: Renal failure/ UTI Patient has no complain today. Her blood pressure has improved. She has had no fever. She denies abdominal pain. Physical Examination - Vital Signs Temperature: 98.1 F Blood Pressure: 127/69 Pulse: 71 Respirations: 18 Pulse Ox (%): 97 - Physical Exam General: Alert, In no apparent distress, Oriented x3 HEENT: Mucous membr. moist/pink Neck: JVD not distended Respiratory: Clear to auscultation bilaterally, Normal air movement Cardiovascular: No edema, Regular rate/rhythm, Normal S1 S2 Gastrointestinal: Soft and benign, Non-distended, No tenderness Musculoskeletal: No swelling Integumentary: No rashes Neurological: Normal strength at 5/5 x4 extr - Studies Microbiology Data (last 24 hrs): 05/14/21 15:30 Clean Catch Urine [place] Count - Final <10,000 CFU/ML. 05/14/21 15:30 Clean Catch Urine - Final MIXED NEIL. Assessment And Plan - Current Problems (Diagnosis) (1) Acute renal failure Current Visit: No Status: Acute (2) Nephrolithiasis Current Visit: No Status: Acute (3) Rheumatoid arthritis Current Visit: No Status: Acute (4) S/P ureteral stent placement Current Visit: No Status: Acute (5) UTI (urinary tract infection) Current Visit: No Status: Acute (6) Liver lesion Current Visit: Yes Status: Acute (7) Severe protein-calorie malnutrition Current Visit: Yes Status: Acute - Plan Renal failure/hypovolemic shock: Seen by nephrology. Acute renal failure almost resolved. Shock resolved. Patient is currently normotensive. Continue IV hydration. Monitor I&O. Eechocardiogram is pending. Nephrolithiasis/status post urethral stent and removal: Patient has persistent left hydroureteronephrosis( Not new). No current symptoms, no stone in ureter. Urology to follow tomorrow. Complicated UTI: Continue Rocephin 1 gm QD x 5. Urine culture: Mixed growth New lesion noted in liver: MRI of liver suggest nodular steatosis. Patient will need follow up MRI as an outpatient within 3 months. Weight loss: Encourage eating. Dietitian consult. Weakness: Fall precautions. Continue PT. HTN: Continue home medications.
[2021-05-17] MEDS: METOPROLOL XL 25 MG TAB PO SCH ×2 (05:25→17:57)
[2021-05-17 05:26] LABS: Absolute Lymphocytes (CBC) 1.3 K/uL (0.7-4.9); Basophils % 0.3 % (0-1.3); Hematocrit 28.6 % (36.0-45.0); Lymphocytes % 18.2 % (15.3-44.8); MPV 11.9 fL (7.6-11.3); RBC Red Blood Cell Count 3.35 M/uL (3.86-4.86)
[2021-05-17 05:37] LABS: Albumin 2.2 g/dL (3.4-5.0); Phosphorus 2.4 mg/dL (2.5-4.9); Potassium 3.6 mmol/L (3.5-5.1)
[2021-05-17] MEDS ORDERED: POTASSIUM 25 MEQ EFFERV TAB PO ONE (05:41)
[2021-05-17] MEDS ORDERED: VANCOMYCIN 1 GM in NA CHLORIDE 0.9% 500 ML IVPB SCH (09:00)
[2021-05-17] MEDS: ENOXAPARIN 30 MG/0.3 ML SQ SCH (09:48)
[2021-05-17] MEDS: dexAMETHasone 4 MG/ML VIAL IV SCH ×2 (09:49→20:42)
[2021-05-17] MEDS: CEFTRIAXONE 1 GM/NS 50 ML 1 GM/50 ML BAG IV SCH (09:49)
[2021-05-17] MEDS: VENLAFAXINE HCL 75 MG TABLET PO SCH (09:49)
[2021-05-17] MEDS ORDERED: VANCOMYCIN 1 GM in NA CHLORIDE 0.9% 250 ML IVPB SCH (11:00)
--- NOTE | 2021-05-17 12:40 | P.DS ---
Admission Date: 05/14/21 Discharge Date: 05/17/21 Primary Care Provider: Dr. An Disposition: DC HOME/HOME HEALTH CARE Discharge Condition: FAIR Reason for Admission: Renal failure/ UTI Consultations: Nephrology-Dr. Valdovinos. - Problems (1) Acute renal failure Current Visit: No Status: Acute (2) Nephrolithiasis Current Visit: No Status: Acute (3) Rheumatoid arthritis Current Visit: No Status: Acute (4) S/P ureteral stent placement Current Visit: No Status: Acute (5) UTI (urinary tract infection) Current Visit: No Status: Acute (6) Liver lesion Current Visit: Yes Status: Acute (7) Severe protein-calorie malnutrition Current Visit: Yes Status: Acute (8) Hypovolemic shock Current Visit: Yes Status: Acute Brief History of Present Illness: 70 y/o woman with a history of nephrolithiasis, hydronephrosis, urethral stent status post recent removal was referred to the emergency department by her PCP due to elevated creatinine and BUN. She had a stent placement in the left ureter that remained for approximately 2 weeks. The stent was subsequently removed by her urologist. She experienced a 30 pound weight loss and became weak and lethargic. In addition she has been being receiving treatment for chronic sinusitis including antral washing. Her labs revealed a decrease in kidney function with a BUN of 57 and a creatinine of 3.84. UA suggested the presence of UTI. CT abdomen and pelvis demonstrated persistent left hydroureteronephrosis. Patient admitted for further management. Hospital Course: Patient admitted to medical floor and hydrated with IV fluid. Her renal fun ction responded and acute renal failure resolved. Nephrology was consulted to assist with management. Persistent hydroureteronephrosis discussed with urology-Dr. Huddleston recommend follow up with him in the office. Urine culture yielded polymicrobial growth. Patient was treated with broad-spectrum antibiotics-IV ceftriaxone and vancomycin. She was seen by PT. She initially had hypotension which resolved with IV hydration. She was also orthostatic. Patient diagnosed with hypovolemic shock. Echocardiogram done reported mild LV dysfunction with EF of 40-45%. Patient has a liver lesion evaluated with MRI which reports nodular steatosis. This will need to be followed with a repeat MRI in 3 months. Patient has clinically improved and deemed stable for discharge Vital Signs/Physical Exam: Temp Pulse Resp BP Pulse Ox 97.6 F 74 19 114/73 96 05/17/21 11:35 05/17/21 11:35 05/17/21 11:35 05/17/21 11:35 05/17/21 11:35 General: Alert, In no apparent distress, Oriented x3 HEENT: Mucous membr. moist/pink Neck: JVD not distended Respiratory: Clear to auscultation bilaterally, Normal air movement Cardiovascular: No edema, Regular rate/rhythm, Normal S1 S2 Gastrointestinal: Soft and benign, Non-distended Musculoskeletal: No swelling, No tenderness Integumentary: No rashes Neurological: Normal strength at 5/5 x4 extr Laboratory Data at Discharge: WBC 7.10 K/uL (4.3-10.9) D 05/17/21 04:51 Hgb 9.4 g/dL (12.0-15.0) L 05/17/21 04:51 Hct 28.6 % (36.0-45.0) L 05/17/21 04:51 Plt Count 189 K/uL (152-406) 05/17/21 04:51 Sodium 145 mmol/L (136-145) 05/17/21 04:51 Potassium 3.6 mmol/L (3.5-5.1) 05/17/21 04:51 BUN 24 mg/dL (7-18) H 05/17/21 04:51 Creatinine 1.05 mg/dL (0.55-1.3) 05/17/21 04:51 Glucose 107 mg/dL (74-106) H 05/17/21 04:51 Uric Acid 14.9 mg/dL (2.6-6.0) H 05/15/21 05:45 Phosphorus 2.4 mg/dL (2.5-4.9) L 05/17/21 04:51 Total Bilirubin 0.4 mg/dL (0.2-1.0) 05/15/21 05:45 AST 10 U/L (15-37) L 05/15/21 05:45 ALT 10 U/L (12-78) L 05/15/21 05:45 Alkaline Phosphatase 75 U/L (45-117) 05/15/21 05:45 Lipase 148 U/L (73-393) 05/14/21 14:22 Home Medications: Aspirin [Aspirin EC 81 MG] 81 mg PO SEECOM 08/02/18 Biotin 10,000 mcg PO SEECOM 08/02/18 Folic Acid 1 mg PO DAILY 08/02/18 Venlafaxine HCl [Venlafaxine HCl ER] 75 mg PO DAILY 08/02/18 methylPREDNISolone [Medrol] 4 mg PO DAILY 08/02/18 Calcium Carbonate [Calcium] 1 tab PO DAILY 03/01/21 Cholecalciferol (Vitamin D3) [Vitamin D3] 1 cap PO SEECOM 03/01/21 Fenofibrate [Tricor*] 1 tab PO SEECOM 03/01/21 Lifitegrast [Xiidra] 1 gtt EACH EYE SEECOM 03/01/21 Methotrexate [Methotrexate*] 3 tab PO SEECOM 03/01/21 [place]-3/Dha/Epa/Fish Oil [Fish Oil 1,000 mg Softgel] 1 cap PO SEECOM 03/01/21 Potassium Gluconate [Potassium] 1 tab PO DAILY 03/01/21 Red Yeast Rice 1 cap PO SEECOM 03/01/21 Vitamin E 1 cap PO SEECOM 03/01/21 Acetaminophen [Tylenol Extra Strength] 1 tab PO SEECOM 03/07/21 L.acidoph,Paracasei, B.lactis [Probiotic] 1 each PO SEECOM 05/16/21 Niacin 500 mg PO SEECOM 05/16/21 Ubidecarenone [Co Q-10] 1 cap PO SEECOM 05/16/21 Cefpodoxime Proxetil [Vantin] 200 mg PO BID #10 tablet 05/17/21 Metoprolol Succinate [Toprol Xl*] 25 mg PO BID 6AM 6PM #60 tab 05/17/21 New Medications: Metoprolol Succinate [Toprol Xl*] 25 mg PO BID 6AM 6PM #60 tab Cefpodoxime Proxetil [Vantin] 200 mg PO BID #10 tablet Physician Discharge Instructions: PROBLEM: Acute Kidney Injury; Urinary Tract Infection GOAL: Clear understanding of disease process INSTRUCTIONS: Your [facility] were [facility] in to [facility] If you have any questions regarding your hospital stay call [phone] If your symptoms worsen come back to emergency room Follow up with your primary care doctor in 1 week Follow up with Dr Valdovinos in 1-2 weeks Follow up with Dr Thornton in 1-2 weeks Follow up with Dr Huddleston in 1-2 weeks You will need a repeat MRI of the liver within 3 months to follow up a liver lesion identified during this hospitalization. Diet: AHA Activity: Fall precautions COMMUNITY SERVICES Services Needed: None Name of Company: Date or Referral: IMMUNIZATION Influenza Vaccine Indicated: No Influenza Vaccine Given: Date Given: Pneumonia Vaccine Indicated: No Pneumonia Vaccine Given: Date Given: Diet: AHA Activity: Fall precautions Followup: Dima Valdovinos MD [ACTIVE - CAN ADMIT] - 1-2 Weeks Aldo Thornton MD [ACTIVE - CAN ADMIT] - 1-2 Weeks [email or web address] [Primary Care Provider] - Patric Huddleston [ACTIVE - CAN ADMIT] - 1-2 Weeks Time spent managing pt's care (in minutes): 40
--- NOTE | 2021-05-17 13:45 | P.PN ---
Subjective Date of Service: 05/17/21 Primary Care Provider: Dr. An Chief Complaint: Renal failure/ UTI Patient has no complain today. Her blood pressure has improved. She has had no fever. She denies abdominal pain. She reports improved appetite and eating more. Physical Examination - Vital Signs Temperature: 97.6 F Blood Pressure: 114/73 Pulse: 74 Respirations: 19 Pulse Ox (%): 96 - Physical Exam General: Alert, In no apparent distress, Oriented x3 HEENT: Mucous membr. moist/pink Neck: Supple, JVD not distended Respiratory: Clear to auscultation bilaterally, Normal air movement Cardiovascular: No edema, Regular rate/rhythm, No murmurs Gastrointestinal: Soft and benign, Non-distended, No tenderness Musculoskeletal: No swelling Integumentary: No rashes Neurological: Normal strength at 5/5 x4 extr Assessment And Plan - Current Problems (Diagnosis) (1) Acute renal failure Current Visit: No Status: Acute (2) Nephrolithiasis Current Visit: No Status: Acute (3) Rheumatoid arthritis Current Visit: No Status: Acute (4) S/P ureteral stent placement Current Visit: No Status: Acute (5) UTI (urinary tract infection) Current Visit: No Status: Acute (6) Liver lesion Current Visit: Yes Status: Acute (7) Severe protein-calorie malnutrition Current Visit: Yes Status: Acute (8) Hypovolemic shock Current Visit: Yes Status: Acute - Plan Renal failure/hypovolemic shock: Seen by nephrology. Acute renal failure almost resolved. Shock resolved. Patient is currently normotensive. Discontinue IV fluid. Monitor I&O. Eechocardiogram reporting mildly reduced LV function, EF 40-45%. Nephrolithiasis/status post urethral stent and removal: Patient has persistent left hydroureteronephrosis( Not new). No current symptoms, no stone in ureter. Case discussed with urology-Dr. Huddleston. She is advised patient to follow with him in the office for further evaluation. Complicated UTI: Continue Rocephin 1 gm QD x 5. Urine culture: Mixed growth. Antibiotics day 3. Continue antibiotics. New lesion noted in liver: MRI of liver suggest nodular steatosis. Patient will need follow up MRI as an outpatient within 3 months. Weight loss: Encourage eating. Dietitian consulted. Patient reports improved appetite. Weakness: Fall precautions. Continue PT. Patient will be discharged with home health for PT. HTN: Continue home medications.
[2021-05-17 14:26] LABS: Magnesium 1.6 mg/dL (1.8-2.4); Potassium 3.8 mmol/L (3.5-5.1)
--- NOTE | 2021-05-17 14:34 | ECHO ---
HEIGHT: 5 ft 4 in WEIGHT: 112 lb 11.2 oz DATE OF STUDY: 05/17/[address]: bhargav jain 2-DIMENSIONAL: YES M.MODE: YES DOPPLER: YES COLOR FLOW: YES TDS: NO PORTABLE: NO DEFINITY: NO BUBBLE STUDY: NO DIAGNOSIS: CHEST PAIN CARDIAC HISTORY: CATHERIZATION: SURGERY: PROSTHETIC VALVE: PACEMAKER: MEASUREMENTS (cm) DIASTOLIC (NORMALS) SYSTOLIC (NORMALS) IVSd 0.8 (0.6-1.2) LA Diam (1.9-4.0) LVEF 40-45% LVIDd 4.3 (3.5-5.7) LVIDs 3.2 (2.0-3.5) %FS 25% LVPWd 0.9 (0.6-1.2) Ao Diam 2.9 (2.0-3.7) 2 DIMENSIONAL ASSESSMENT: RIGHT ATRIUM: NORMAL LEFT ATRIUM: ENLARGED RIGHT VENTRICLE: NORMAL LEFT VENTRICLE: DEPRESSED TRICUSPID VALVE: MITRAL VALVE: PULMONIC VALVE: NORMAL AORTIC VALVE: NORMAL PERICARDIAL EFFUSION: NONE AORTIC ROOT: NORMAL LEFT VENTRICULAR WALL MOTION: ANTEROSEPTAL ANTERIOR MILD HYPOKINESIS. DOPPLER/COLOR FLOW: SEE BELOW COMMENTS: MILDLY DEPRESSED LEFT VENTRICULAR EJECTION FRACTION 40-45%. ANTEROSEPTAL ANTERIOR MILD HYPOKINESIS. MILD TRICUSPID AND MITRAL REGURGITATION. TECHNOLOGIST: Chantale MORENO
[2021-05-17] MEDS ORDERED: MAGNESIUM OXIDE 400 MG TAB PO ONE (17:00)
[2021-05-17] MEDS: ENSURE ENLIVE 237 ML CAN PO SCH (20:42)
--- NOTE | 2021-05-17 23:57 | PN ---
Date of Progress Note: 05/17/2021 Chief Complaint: Acute kidney injury secondary to prerenal azotemia and nonoliguric acute tubular ne crosis. History: Patient developed urinary tract infection. She has history of obstructive uropathy and it was complicated acute kidney injury. Patient improved with IV hydration. Patient received IV fluids . Renal function has improved. Review of Systems: Denies fever, chills. Physical Examination: Lungs: Clear to auscultation bilaterally. Heart: S1, S2. Abdomen: Soft, benign. Extremities: No edema. Laboratory Data: BUN 29, creatinine 1.1, calcium 7.4, phosphorus 2.8. Sodium 145, potassium 3.8, bi carbonate 23. Impression And Plan: 1.Acute kidney injury, multifactorial. Patient has history of acute tubular necrosis and obstructiv e uropathy. The patient prior to this admission was taking Advil, which was complicating the picture of acute kidney injury. The patient will avoid nonsteroidal anti-inflammatory medication. The jacqui ent was found to have hydronephrosis. She needs to follow up with Urology within the next 4 weeks. 2.Hypertension. Continue current medication. 3.Rheumatoid arthritis, steroid dependent. Patient will follow up with [facility]. 4.Urinary tract infection. Continue current treatment with antibiotics. 5.Nephrolithiasis. The patient will follow up outpatient for stone analysis. 6.Hypokalemia, resolved. Patient received supplementation. MARIO/GAEL Voice ID: [id number] Report ID: [id number]
[2021-05-18] MEDS: METOPROLOL XL 25 MG TAB PO SCH (06:02)
[2021-05-18 06:03] LABS: Albumin 2.2 g/dL (3.4-5.0); Magnesium 1.6 mg/dL (1.8-2.4); Phosphorus 2.2 mg/dL (2.5-4.9); Potassium 3.5 mmol/L (3.5-5.1)
[2021-05-18] MEDS ORDERED: POTASSIUM 25 MEQ EFFERV TAB PO ONE (06:14)
[2021-05-18] MEDS ORDERED: Magnesium Sulfate 2gm IVPB 2 G/50 ML BAG IV ONE (06:47)
[2021-05-18] MEDS: ENOXAPARIN 30 MG/0.3 ML SQ SCH (07:50)
[2021-05-18] MEDS: dexAMETHasone 4 MG/ML VIAL IV SCH (07:50)
[2021-05-18] MEDS: VENLAFAXINE HCL 75 MG TABLET PO SCH (07:51)
[2021-05-18] MEDS: ENSURE ENLIVE 237 ML CAN PO SCH (07:51)
[2021-05-18 08:30] VITALS: BP 117/74; TEMP 98
[2021-05-18] MEDS: CEFTRIAXONE 1 GM/NS 50 ML 1 GM/50 ML BAG IV SCH (09:05)
[2021-05-18 09:47] VITALS: O2SAT 98
--- NOTE | 2021-05-18 14:58 | PN ---
Date of Progress Note: 05/18/2021 Subjective: The patient was admitted with acute kidney injury secondary to prerenal, secondary to to xic ATN/obstructive uropathy. The patient had stenting almost a few weeks back and removed 1 week be fore admission. The patient is feeling much better. Physical Examination: Vital Signs: When I saw the patient; blood pressure 117/74, pulse of 65. Chest: Clear to auscultation. Heart: S1, S2. Regular. Abdomen: Soft, nontender. Extremities: No edema. Neurologic: Alert. No focality. Laboratory Data: H and H 9.4/28.6. Sodium 146, potassium 3.5, bicarb 27, BUN 21, creatinine 0.9, GF R of 58, calcium 8.4, magnesium 1.6, phosphorus 2.2. Current Medications: The patient on include; 1.Loperamide. 2.Methotrexate. 3.KCl. 4.Metoprolol. 5.Vantin. Assessment And Plan: 1.Acute kidney injury, multifactorial, secondary to prerenal, superimposed with obstructive uropathy and toxic ATN secondary to urinary tract infection, recovered, resolved. Agree with discharge plann ing to follow up in the office in 3-4 weeks. The patient needs to repeat renal ultrasound to evaluat e about the persistent of the hydronephrosis. 2.Nephrolithiasis, status post stent placement and removal. Still has hydronephrosis on the CAT sca n on the left side where the stent removed. We will need to repeat ultrasound as outpatient to evalu ate the persistent of hydronephrosis. 3.Left-sided renal cyst. We will follow up as outpatient with ultrasound. 4.Urinary tract infection. Continue current antibiotics. The patient cleared from the Renal standp oint for discharge planning. HAZEL/GAEL Voice ID: [id number] Report ID: [id number]
--- NOTE | 2021-05-18 15:27 | P.DS ---
Admission Date: 05/14/21 Discharge Date: 05/18/21 Primary Care Provider: Dr. An Disposition: DC HOME/HOME HEALTH CARE Discharge Condition: FAIR Reason for Admission: Renal failure/ UTI Consultations: Nephrology-Dr. Valdovinos. Procedures: Problem list Acute cystitis, UTI Acute renal failure History of nephrolithiasis Rheumatoid arthritis s/p ureteral stent placement Liver lesion Severe protein calorie malnutrition Hypovolemic shock Diastolic congestive heart failure, chronic Brief History of Present Illness: 70 y/o woman with a history of nephrolithiasis, hydronephrosis, urethral stent status post recent removal was referred to the emergency department by her PCP due to elevated creatinine and BUN. She had a stent placement in the left ureter that remained for approximately 2 weeks. The stent was subsequently removed by her urologist. She experienced a 30 pound weight loss and became weak and lethargic. In addition she has been being receiving treatment for chronic sinusitis including antral washing. Her labs revealed a decrease in kidney function with a BUN of 57 and a creatinine of 3.84. UA suggested the presence of UTI. CT abdomen and pelvis demonstrated persistent left hydroureteronephrosis. Patient admitted for further management. Hospital Course: Patient admitted to medical floor and hydrated with IV fluid. Her renal function responded and acute renal failure resolved. Nephrology was consulted to assist with management. Persistent hydroureteronephrosis discussed with urology-Dr. Huddleston recommend follow up with him in the office. Urine culture yielded polymicrobial growth. Patient was treated with broad-spectrum antibiotics-IV ceftriaxone and vancomycin. She was seen by PT. She initially had hypotension which resolved with IV hydration. She was also orthostatic. Patient diagnosed with hypovolemic shock. Echocardiogram done reported mild LV dysfunction with EF of 40-45%. Patient has a liver lesion evaluated with MRI which reports nodular steatosis. This will need to be followed with a repeat MRI in 3 months. Patient has clinically improved and deemed stable for discharge home. Vital Signs/Physical Exam: General: Alert, In no apparent distress, Oriented x3 HEENT: Mucous membr. moist/pink Neck: JVD not distended Respiratory: Clear to auscultation bilaterally, Normal air movement Cardiovascular: No edema, Regular rate/rhythm, Normal S1 S2 Gastrointestinal: Soft and benign, Non-distended Musculoskeletal: No swelling, No tenderness Integumentary: No rashes Neurological: Normal strength at 5/5 x4 extr Temp Pulse Resp BP Pulse Ox 98.0 F 67 16 117/74 98 05/18/21 08:00 05/18/21 08:00 05/18/21 08:00 05/18/21 08:00 05/18/21 08:00 Laboratory Data at Discharge: WBC 7.10 K/uL (4.3-10.9) D 05/17/21 04:51 Hgb 9.4 g/dL (12.0-15.0) L 05/17/21 04:51 Hct 28.6 % (36.0-45.0) L 05/17/21 04:51 Plt Count 189 K/uL (152-406) 05/17/21 04:51 Sodium 146 mmol/L (136-145) H 05/18/21 05:24 Potassium 3.5 mmol/L (3.5-5.1) 05/18/21 05:24 BUN 21 mg/dL (7-18) H 05/18/21 05:24 Creatinine 0.95 mg/dL (0.55-1.3) 05/18/21 05:24 Glucose 114 mg/dL (74-106) H 05/18/21 05:24 Uric Acid 14.9 mg/dL (2.6-6.0) H 05/15/21 05:45 Phosphorus 2.2 mg/dL (2.5-4.9) L 05/18/21 05:24 Magnesium 1.6 mg/dL (1.8-2.4) L 05/18/21 05:24 Total Bilirubin 0.4 mg/dL (0.2-1.0) 05/15/21 05:45 AST 10 U/L (15-37) L 05/15/21 05:45 ALT 10 U/L (12-78) L 05/15/21 05:45 Alkaline Phosphatase 75 U/L (45-117) 05/15/21 05:45 Lipase 148 U/L (73-393) 05/14/21 14:22 Home Medications: Aspirin [Aspirin EC 81 MG] 81 mg PO SEECOM 08/02/18 Biotin 10,000 mcg PO SEECOM 08/02/18 Folic Acid 1 mg PO DAILY 08/02/18 Venlafaxine HCl [Venlafaxine HCl ER] 75 mg PO DAILY 08/02/18 methylPREDNISolone [Medrol] 4 mg PO DAILY 08/02/18 Calcium Carbonate [Calcium] 1 tab PO DAILY 03/01/21 Cholecalciferol (Vitamin D3) [Vitamin D3] 1 cap PO SEECOM 03/01/21 Fenofibrate [Tricor*] 1 tab PO SEECOM 03/01/21 Lifitegrast [Xiidra] 1 gtt EACH EYE SEECOM 03/01/21 Methotrexate [Methotrexate*] 3 tab PO SEECOM 03/01/21 [place]-3/Dha/Epa/Fish Oil [Fish Oil 1,000 mg Softgel] 1 cap PO SEECOM 03/01/21 Potassium Gluconate [Potassium] 1 tab PO DAILY 03/01/21 Red Yeast Rice 1 cap PO SEECOM 03/01/21 Vitamin E 1 cap PO SEECOM 03/01/21 Acetaminophen [Tylenol Extra Strength] 1 tab PO SEECOM 03/07/21 L.acidoph,Paracasei, B.lactis [Probiotic] 1 each PO SEECOM 05/16/21 Niacin 500 mg PO SEECOM 05/16/21 Ubidecarenone [Co Q-10] 1 cap PO SEECOM 05/16/21 Cefpodoxime Proxetil [Vantin] 200 mg PO BID #10 tablet 05/17/21 Metoprolol Succinate [Toprol Xl*] 25 mg PO BID 6AM 6PM #60 tab 05/17/21 New Medications: Metoprolol Succinate [Toprol Xl*] 25 mg PO BID 6AM 6PM #60 tab Cefpodoxime Proxetil [Vantin] 200 mg PO BID #10 tablet Physician Discharge Instructions: PROBLEM: Acute Kidney Injury; Urinary Tract Infection GOAL: Clear understanding of disease process INSTRUCTIONS: Your prescriptions were called in to [facility] If you have any questions regarding your hospital stay call [phone] If your symptoms worsen come back to emergency room Follow up with your primary care doctor in 1 week Follow up with Dr Valdovinos in 1-2 weeks Follow up with Dr Thornton in 1-2 weeks Follow up with Dr Huddleston in 1-2 weeks You will need a repeat MRI of the liver within 3 months to follow up a liver lesion identified during this hospitalization. Diet: AHA Activity: Fall precautions COMMUNITY SERVICES Services Needed: None Name of Company: Date or Referral: IMMUNIZATION Influenza Vaccine Indicated: No Influenza Vaccine Given: Date Given: Pneumonia Vaccine Indicated: No Pneumonia Vaccine Given: Date Given: Diet: AHA Activity: Fall precautions Followup: Dima Valdovinos MD [ACTIVE - CAN ADMIT] - 1-2 Weeks Aldo Thornton MD [ACTIVE - CAN ADMIT] - 1-2 Weeks OOT,OOT [Primary Care Provider] - Patric Huddleston [ACTIVE - CAN ADMIT] - 1-2 Weeks Time spent managing pt's care (in minutes): 45
== END 2021-05-18 10:43 | disposition home health service (06) | DRG 682 ==
LOC: ER 13:49 → ERHOLD 17:37 → 2ND 19:23
PROVIDERS: ADMIT Internal Medicine; ATTEND Internal Medicine
DX: N17.0 Acute kidney failure with tubular necrosis (principal); E43 Unspecified severe protein-calorie malnutrition; R57.1 Hypovolemic shock; Z68.1 Body mass index [BMI] 19.9 or less, adult; I50.32 Chronic diastolic (congestive) heart failure; N30.00 Acute cystitis without hematuria; K76.9 Liver disease, unspecified; R63.4 Abnormal weight loss; R53.1 Weakness; I11.0 Hypertensive heart disease with heart failure; M06.9 Rheumatoid arthritis, unspecified; E87.6 Hypokalemia; N13.30 Unspecified hydronephrosis; I95.9 Hypotension, unspecified; Z87.442 Personal history of urinary calculi; Z88.0 Allergy status to penicillin; Z86.73 Personal history of transient ischemic attack (TIA), and cerebral infarction without residual deficits; Z79.52 Long term (current) use of systemic steroids; Z20.822 Contact with and (suspected) exposure to COVID-19
CPT/HCPCS: 36415; 74176; 74181; 76377; 80048; 80053; 80069; 80076; 80202; 81003; 81015; 82570; 83690; 83735; 83935; 84132; 84156; 84300; 84550; 85025; 87086; 87088; 93306; 97116; 97161; 97530; 99285; J0696; J1100; J1650; J3370; J3475; J7030; J7040; J7050; J7509; U0003